=== PATIENT | male | born 1945 | race Caucasian/White ===

== ENCOUNTER → 2023-03-01 13:39 | Outpatient (BNVA) | payer MEDICARE, OTHER, SELFPAY | PROVIDERS: PCP Family Medicine; Visit Provider Psychiatry & Neurology Psychiatry | DX: F33.42 Major depressive disorder, recurrent, in full remission (principal) | CPT/HCPCS: 99212 ==

== ENCOUNTER 2023-04-11 16:23 | Outpatient (AMB) | payer MEDICARE, OTHER, SELFPAY ==
--- NOTE | 2023-04-11 15:11 | A.OFFPSYCH_ITS ---
Intake Intake Visit Reasons: depression HPI- Psychiatric Chief Complaint: depression HPI Narrative: Pt called office regarding feeling flat going thru motions has limited interest in things can have some periods feeling ok urged regular exercise has been walking rowing we had discussed the use of L methyl folate was concerned regarding potential side effects. Not overly depressed but feels flat somewhat apathetic not looking forward to things this appears to have been a gradual process and no significant change in his his life her status. [facility] concerns Day has been having 1-2 drinks a night Past Psychiatric History: Past history of depression anxiety was a patient Dr. Paez Mental Status Exam Mental Status Exam Narrative: Mental Status Exam Narrative: Appearance: Casually dressed Behavior: Cooperative appropriate psychomotor: Within normal limits Speech: Normal volume and prosody Thought proccess logical and goal-directed Thought content: Future oriented some tendency toward rumination Mood: Okay dulling noted Affect: Appropriate to mood some Flattening SI:denies HI:denies VH/AH:none Delusions: None Insight/judgment: Good insight and judgment Memory/cog: Intact Telehealth Telehealth Location of provider rendering services: practice address Location of patient: address on file Patient Identification confirmed using: Name, : Yes Telehealth method: video Patient verbally consented to treatment: Yes Minutes spent on Phone/Video with Pt.: 15 Assessment and Plan Assessment & Plan (1) Dysthymia: Status: Acute Code(s): 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 No clear trigger gradual change. Has been starting to exercise regularly [facility] gets along well with his . For no major confucianist triggers or acute medical problems. We did discuss avoiding alcohol use case that is a contributing factor. Patient has 150 mg Wellbutrin at home he will increase to 300 mg for a couple of weeks and will then decide at that point whether to continue 300 mg. Side effects reviewed including constipation hypertension increased anxiety follow-up in May patient call in between appointments as needed Medications: Changed From bupropion HCl 150 mg PO QAM 90 tabs 1RF To bupropion HCl 300 mg (2 x 150 mg) PO QAM 90 tabs 1RF Counseling and coordination of Care Pt. Self Management counseling: Mod caffeine/ETOH intake and Behavior activation Diagnosis and Prognosis Counseling: Adequacy of current interventions Details: I spent [22] minutes reviewing the record, seeing the patient and documenting in the medical record. Counseling provided to the patient/caregiver as outlined below. Addressed patient/caregiver concerns regarding current medication regime including effective adherence. Addressed patient/caregiver concerns regarding diagnosis and prognosis including accuracy of diagnosis, prognosis over time, impact of diagnosis. Addressed patient/caregiver concerns regarding impact of recent stressors. [facility] Medical History (Updated 04/11/23 @ 15:34 by Rafa Hobson MD) Major depression, recurrent, full remission Social History: Patient has 2 children. 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 Family history of bipolar disorder and depression patient had social anxieties child Substance History: none Trauma History: Both parents were alcoholics Coding Level of Care Code Tele Est Pt Level 3 (91230) Diagnoses Dysthymia F34.1
== END 2023-04-11 16:24 | disposition home or self-care (01) ==
LOC: HO.HOP 16:23
PROVIDERS: PCP Family Medicine; Visit Provider Psychiatry & Neurology Psychiatry
DX: F34.1 Dysthymic disorder (principal)
CPT/HCPCS: 99213

== ENCOUNTER → 2023-04-11 16:23 | Outpatient (BNVA) | payer MEDICARE, OTHER, SELFPAY | PROVIDERS: PCP Family Medicine; Visit Provider Psychiatry & Neurology Psychiatry | DX: F34.1 Dysthymic disorder (principal) | CPT/HCPCS: Q3014 ==

== ENCOUNTER 2023-06-13 10:34 | Outpatient (AMB) | payer MEDICARE, OTHER, SELFPAY ==
--- NOTE | 2023-06-13 10:40 | MHC.OFFVISPS ---
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 Paez Mental Status Exam Mental Status Exam Narrative: Mental Status Exam Narrative: Appearance: Casually dressed Behavior: Cooperative appropriate psychomotor: Within normal limits Speech: Normal volume and prosody Thought proccess logical and goal-directed Thought content: Future oriented issues related to his children which seem to be going better Mood: Euthymic Affect: Appropriate to mood SI:denies HI:denies VH/AH:none Delusions: None Insight/judgment: Good insight and judgment Memory/cog: Intact Assessment and Plan Assessment & Plan (1) Major depression, recurrent, full remission: Status: Acute Code(s): F33.42 - Major depressive disorder, recurrent, in full remission Plan Continue Wellbutrin mood stable no significant side effects depressive episode seemed to have diminished able to enjoy things glad to have his book just about finished no severe anxiety rumination seems to be more past generally feeling well no new medical problems does better on 150 mg then 300 mg wore anxiety agitation on 300 mg Medications: Changed From bupropion HCl 300 mg (2 x 150 mg) PO QAM 90 tabs 1RF To bupropion HCl 150 mg PO QAM 90 tabs 1RF Counseling and coordination of Care Details-Self Mgmt counseling: Issues related to family stress Medication management counseling: Effectiveness and Side effects Diagnosis and Prognosis Counseling: Adequacy of current interventions Details: I spent [38] minutes reviewing the record, seeing the patient and documenting in the medical record. Counseling provided to the patient/caregiver as outlined below. Addressed patient/caregiver concerns regarding current medication regime including effective adherence. Addressed patient/caregiver concerns regarding diagnosis and prognosis including accuracy of diagnosis, prognosis over time, impact of diagnosis. Addressed patient/caregiver concerns regarding impact of recent stressors. [facility] Medical History (Updated 04/11/23 @ 15:34 by Rafa Hobson MD) Major depression, recurrent, full remission Social History: Patient has 2 children. 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 Family history of bipolar disorder and depression patient had social anxieties child Substance History: none Trauma History: Both parents were alcoholics Coding Level of Care Code Est Pt Level 3 (77993) Therapy 30m w/E&M (63392) Diagnoses Major depression, recurrent, full remission F33.42
== END 2023-06-13 11:01 | disposition home or self-care (01) ==
LOC: HO.HOP 10:34
PROVIDERS: PCP Family Medicine; Visit Provider Psychiatry & Neurology Psychiatry
DX: F33.42 Major depressive disorder, recurrent, in full remission (principal)
CPT/HCPCS: 90833; 99213

== ENCOUNTER → 2023-06-13 10:34 | Outpatient (BNVA) | payer MEDICARE, OTHER, SELFPAY | PROVIDERS: PCP Family Medicine; Visit Provider Psychiatry & Neurology Psychiatry | DX: F33.42 Major depressive disorder, recurrent, in full remission (principal) | CPT/HCPCS: 90833; 99212 ==

== ENCOUNTER 2023-10-13 17:07 | Outpatient (AMB) | payer MEDICARE, OTHER, SELFPAY ==
--- NOTE | 2023-10-13 11:54 | A.OFFPSYCH_ITS ---
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 No long COVID symptoms. Patient without significant depressive breakthroughs generally doing well. Some family interpersonal issues arise times but patient stable he is looking to do more regular exercise which would be helpful some flattening perhaps in the winter generally no complaints of side effects has done well with the Wellbutrin Past Psychiatric History: Past history of depression anxiety was a patient Dr. Paez Mental Status Exam Mental Status Exam Narrative: Mental Status Exam Narrative: Appearance: Casually dressed Behavior: Cooperative appropriate psychomotor: Within normal limits Speech: Normal volume and prosody Thought proccess logical and goal-directed Thought content: Future oriented issues related to his children which seem to be going better Mood: Euthymic Affect: Appropriate to mood SI:denies HI:denies VH/AH:none Delusions: None Insight/judgment: Good insight and judgment Memory/cog: Intact Assessment and Plan Assessment & Plan (1) Major depression, recurrent, full remission: Status: Acute Code(s): F33.42 - Major depressive disorder, recurrent, in full remission Plan Did read fill sildenafil risks benefits reviewed continue Wellbutrin 150 mg daily follow-up for a six-month Medications: Refilled sildenafil administer 30 minutes to 4 hours before activity do not use with nitrates 50 mg PO DAILY PRN 14 tabs 1RF sexual activity bupropion HCl 150 mg PO QAM 90 tabs 1RF Counseling and coordination of Care Pt. Self Management counseling: Breathing, Exercise and Behavior activation Diagnosis and Prognosis Counseling: Adequacy of current interventions Details: I spent [25] minutes reviewing the record, seeing the patient and documenting in the medical record. Counseling provided to the patient/caregiver as outlined below. Addressed patient/caregiver concerns regarding current medication regime including effective adherence. Addressed patient/caregiver concerns regarding diagnosis and prognosis including accuracy of diagnosis, prognosis over time, impact of diagnosis. Addressed patient/caregiver concerns regarding impact of recent stressors. [facility] Medical History (Updated 04/11/23 @ 15:34 by Rafa Hobson MD) Major depression, recurrent, full remission Social History: Patient has 2 children. 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 Family history of bipolar disorder and depression patient had social anxieties child Substance History: none Trauma History: Both parents were alcoholics Coding Level of Care Code Est Pt Level 4 (72983) Diagnoses Major depression, recurrent, full remission F33.42
== END 2023-10-13 17:07 | disposition home or self-care (01) ==
LOC: HO.HOP 17:07
PROVIDERS: PCP Family Medicine; Visit Provider Psychiatry & Neurology Psychiatry
DX: F33.42 Major depressive disorder, recurrent, in full remission (principal)
CPT/HCPCS: 99214

== ENCOUNTER → 2023-10-13 17:07 | Outpatient (BNVA) | payer MEDICARE, OTHER, SELFPAY | PROVIDERS: PCP Family Medicine; Visit Provider Psychiatry & Neurology Psychiatry | DX: F33.42 Major depressive disorder, recurrent, in full remission (principal); Z79.899 Other long term (current) drug therapy | CPT/HCPCS: 99212 ==

== ENCOUNTER → 2024-03-01 11:12 | Outpatient (BNVA) | payer MEDICARE, OTHER, SELFPAY | PROVIDERS: PCP Family Medicine; Visit Provider Psychiatry & Neurology Psychiatry ==

== ENCOUNTER 2024-08-29 10:26 | Outpatient (AMB) | payer MEDICARE, OTHER, SELFPAY ==
--- NOTE | 2024-08-29 11:00 | MHC.OFFVISPS ---
Intake Intake Visit Reasons: depression HPI- Psychiatric Chief Complaint: depression HPI Narrative: Pt seen in f/u pt generally stable no new mmedical problems no significant dep sx or breakthrough. Has been stable on wellbutrin no c/o side effects. 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 Paez Mental Status Exam Mental Status Exam Narrative: Mental Status Exam Narrative: Appearance: Casually dressed Behavior: Cooperative appropriate psychomotor: Within normal limits Speech: Normal volume and prosody Thought proccess logical and goal-directed Thought content: Future oriented focused on tx prevention of relapse Mood: Euthymic Affect: Appropriate to mood SI:denies HI:denies VH/AH:none Delusions: None Insight/judgment: Good insight and judgment Memory/cog: Intact Assessment and Plan Assessment & Plan (1) Major depression, recurrent, full remission: Status: Acute Code(s): F33.42 - Major depressive disorder, recurrent, in full remission Plan pt stable discussed f/u with pcp and to be available for consult as possible Medications: Refilled bupropion HCl XL 150 mg PO QAM 90 tabs 1RF Counseling and coordination of Care Medication management counseling: Effectiveness and Side effects Diagnosis and Prognosis Counseling: Adequacy of current interventions Details: I spent [25] minutes reviewing the record, seeing the patient and documenting in the medical record. Counseling provided to the patient/caregiver as outlined below. Addressed patient/caregiver concerns regarding current medication regime including effective adherence. Addressed patient/caregiver concerns regarding diagnosis and prognosis including accuracy of diagnosis, prognosis over time, impact of diagnosis. Addressed patient/caregiver concerns regarding impact of recent stressors. [facility] Medical History (Updated 04/11/23 @ 15:34 by Rafa Hobson MD) Major depression, recurrent, full remission Social History: Patient has 2 children. 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 Family history of bipolar disorder and depression patient had social anxieties child Substance History: none Trauma History: Both parents were alcoholics Coding Level of Care Code Est Pt Level 4 (30091) Diagnoses Major depression, recurrent, full remission F33.42
== END 2024-08-29 11:05 | disposition home or self-care (01) ==
LOC: HO.HOP 10:26
PROVIDERS: PCP Family Medicine; Visit Provider Psychiatry & Neurology Psychiatry
DX: F33.42 Major depressive disorder, recurrent, in full remission (principal)
CPT/HCPCS: 99214

== ENCOUNTER → 2024-08-29 10:26 | Outpatient (BNVA) | payer MEDICARE, OTHER, SELFPAY | PROVIDERS: PCP Family Medicine; Visit Provider Psychiatry & Neurology Psychiatry | DX: F33.42 Major depressive disorder, recurrent, in full remission (principal); Z71.89 Other specified counseling | CPT/HCPCS: 99212 ==

== ENCOUNTER 2025-01-09 10:25 | Outpatient (AMB) | payer MEDICARE, OTHER, SELFPAY ==
--- NOTE | 2025-01-09 10:35 | A.OFFPSYCH_ITS ---
Intake Intake Visit Reasons: depression Medication List - Last Reconciled 01/09/25 by Rafa Hobson MD bupropion HCl XL 150 mg PO QAM finasteride 5 mg PO DAILY levothyroxine 137 mcg PO DAILY lovastatin 20 mg PO DAILY sildenafil 50 mg PO DAILY PRN HPI- Psychiatric Chief Complaint: depression HPI Narrative: Pt seen in f/u mood has ok some anxiety a grandson getting going [facility] some ongoing worries regarding aging . 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 Things generally going well patient stable discussed being seen by his primary care physician Past Psychiatric History: Past history of depression anxiety was a patient Dr. Paez Mental Status Exam Mental Status Exam Narrative: Mental Status Exam Narrative: Appearance: Casually dressed Behavior: Cooperative appropriate psychomotor: Within normal limits Speech: Normal volume and prosody Thought proccess logical and goal-directed Thought content: Future oriented focused on tx prevention of relapse Mood: Euthymic Affect: Appropriate to mood SI:denies HI:denies VH/AH:none Delusions: None Insight/judgment: Good insight and judgment Memory/cog: Intact Assessment and Plan Assessment & Plan (1) Major depression, recurrent, full remission: Status: Acute Code(s): F33.42 - Major depressive disorder, recurrent, in full remission Plan Patient feeling generally stable. Some anxiety at times regarding the aging process Medications: Refilled bupropion HCl XL 150 mg PO QAM 90 tabs 1RF Counseling and coordination of Care Details-Self Mgmt counseling: Issues related to the aging process Medication management counseling: Effectiveness, Side effects and Dosing range Diagnosis and Prognosis Counseling: Accuracy of diagnosis, Prognosis over time and Impact of diagnosis on life functions Details: I spent [30] minutes reviewing the record, seeing the patient and documenting in the medical record. Counseling provided to the patient/caregiver as outlined below. Addressed patient/caregiver concerns regarding current medication regime including effective adherence. Addressed patient/caregiver concerns regarding diagnosis and prognosis including accuracy of diagnosis, prognosis over time, impact of diagnosis. Addressed patient/caregiver concerns regarding impact of recent stressors. [facility] Medical History (Updated 04/11/23 @ 15:34 by Rafa Hobson MD) Major depression, recurrent, full remission Social History: Patient has 2 children. 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 Family history of bipolar disorder and depression patient had social anxieties child Substance History: none Trauma History: Both parents were alcoholics Coding Level of Care Code Est Pt Level 4 (27724) Diagnoses Major depression, recurrent, full remission F33.42
--- OUTSIDE RECORDS SUMMARY | 2025-01-09 12:02 | XMS_ITS | Data Portability ---
Author Organization [facility] Address [address] [place] [address] Care Team Providers Care Shopper'S Aide Name Role Phone [facility] Urologist [facility] Microwave Technician Assessment Encounter Date Assessment Date Assessment LastModified by Organization Details LastModified Time 04/11/2024 04/11/2024 We completed your Medicare Wellness exam today. This was an opportunity to assess your overall well being including your ability to care for yourself, your mobility, memory, mental health, as well as your safety. With advancing age, it is important to assign someone in your life as your Health Care Proxy (HCP). This person should know what is important to you and what your wishes are for medical procedures if you cannot communicate your wishes yourself (severe illness, unconsciousnes s). We discussed having a completed Health Care Proxy form today. Vision and Hearing are senses that are critically important as we age. When impaired, they can contribute to memory loss, falls, and make it harder to drive, talk to family and friends, and engage in the world. Please get your vision checked yearly and your hearing checked when you start to notice hearing loss. We discussed approaches to lowering your risk of heart disease and stroke . Your blood pressure is at goal. Your cholesterol is at goal. We discussed cancer screening you may need as well as vaccines to prevent infections. Colon Cancer : Your risk of colon cancer is average. Due for colorectal screening:not needed. If you are not planning to have a colonoscopy please screen with stool cards yearly. Breast Cancer : Breast Cancer Screening (mammography). Next mammogram due: . Cervical Cancer Screening (pap test). Next pap due: . Prostate Cancer : PSA testing for ages 55-69 risks and benefits discussed . Influenza Vaccine : Flu shot yearly. Tetanus Vaccine : Every 10 years. Due: today. The following vaccines are available from your pharmacy: Pneumonia Vaccine : PCV20: once after age 65. Shingles Vaccine : 2 shots after age 50. Covid Vaccine : Make sure you have received the most up to date covid vaccine. Your personal health goal for the year is: Not available 04/11/2024 16:17:32 07/09/2024 07/09/2024 RTC 1 yr CEE or prn [email or web address] Not available 07/09/2024 10:41:23 Plan of Treatment Reminders Order Date Submit Date Provider Last Modified By Organization Details Last Modified Time Details Appointments LAB Follow- Up 2024 10:00A M [facility] Lab Not available Not available Not available [facility] 30 2024 10:15A M Gretchen Schuster MD Not available Not available Not available Compreh ensive Eye Exam, 20 Min 2024 10:10A M Anita Villela OD Not available Not available Not available Lab None recorde d. Referral None recorde d. Procedures None recorde d. Surgeries None recorde d. Imaging None recorde d. Medication Orders None recorde d. Patient TargetsNo targets recorded. Patient Instructions Encounter Date Encounter Id Patient Instructions Last Modified By Organization Details Last Modified Time 07/10/2024 [id number] After a discussi on of treatment options, which included consideration of best practices and patient preferences, the following treatment plan and objectives were adopted: as above. [email or web address] Not available 07/10/2024 10:01:08 10/01/2024 [id number] General Health Maintenance / Followup Plans -Next primary care appointment scheduled for June 2025. -Labs to be done a week prior to the appointment. -Continue regular appointments with medical office coordinator. Not available 10/01/2024 13:36:36 Reason for Referral None Reported. Results Created Date Observation Date Name Description Value Unit Range Abnormal Flag Note LastModifiedBy Organization Detail LastModifiedTime 03/19/20 24 03/19/2024 TSH TSH 0.93 uIU/m L 0.50-6 .00 The Ameri can Colle ge of Endoc rinol ogy and Ameri can Thyro id Assoc iatio n recom mend goal TSH value s betwe en 0.4-4 .0 mIU/m L. Not Available [address], [address], 03/19/2024 14:07:43 03/19/20 24 03/19/2024 LIPID PANEL cholesterol 157 mg/dL <200 mg/dl Saadia able 200-2 39 mg/dl Borde rline High >240 mg/dl High Not Available [address], [address], 03/19/2024 16:27:33 03/19/20 24 03/19/2024 LIPID PANEL triglyceride s 141 mg/dL <150 mg/dL Lexy l 150-1 99 mg/dL Borde rline High 200-4 99 mg/dL High >500 mg/dL Very High Not Available [address], [address], 03/19/2024 16:27:33 03/19/20 24 03/19/2024 LIPID PANEL direct HDL 43 mg/dL <40 mg/dl - Major Risk for CHD >60 mg/dl - Negat michael Risk for CHD Not Available [address], [address], 03/19/2024 16:27:33 03/19/20 24 03/19/2024 GLUCO SE glucose 66 mg/dL 70-100 low Not Available [address], [address], 03/19/2024 16:27:33 03/19/20 24 03/19/2024 DIREC T LDL direct LDL 91 mg/dL RISK CATEG ORY LDL GOAL _ CHD or CHD Risk Equiv alent s <100 mg/dl (10-y ear risk >20%) 2+ Risk Facto rs <130 mg/dl (10-y ear risk <= 20%) 0-1 Risk Facto r? <160 mg/dl ? Almos t all peopl e with 0-1 risk facto r have a 10 year risk <10%, thus 10 year risk asses ment in peopl e with 0-1 risk facto r is not selma cade. Not Available [address], [address], 03/19/2024 16:27:34 Result Notes None recorded. Problems Name Problem SNOMED Code Status Onset Date Resolution Date Notes Provider Name and Address Organization Details Recorded Time Hypothyroidis m 65879745 [facility] 13:[facility] Hypercholeste rolemia 13151853 Active Zena Zaldivar NP [address] [place] [address], [phone] , [facility] 6 17:18:03 Benign prostatic hyperplasia 093159934 [facility] 13:32:31 Allergic rhinitis 52224618 Active Zena Zaldivar NP [address] [place] [address], [phone] , [facility] 6 17:18:03 Basal cell carcinoma of skin 484873726 Active 2021 R arm 2021 NE Derm Gretchen Schuster MD [address] [place] [address], [phone] , [facility] 2 13:14:52 Major depression, melancholic type 678311596 Active 2022 Gretchen Schuster MD [address] [place] [address], [phone] , [facility] 3 09:53:10 Bilateral hearing loss 23778181 Active 2023 Gretchen Schuster MD [address] [place] [address], [phone] , [facility] 4 16:16:44 Eczema of external auditory canal 43756708 Active 2024 Gretchen Schuster MD [address] [place] [address], [phone] , [facility] 13:35:25 Problem Notes None recorded. Procedures Surgical History Date Name Laterality Status Provider Name and Address Organization Details Recorded Time Cerumen Removal - Irrigation/Lavage completed Ori Villase[facility] 07/10/2024 10:14:33 Cerumen Removal - Using Instrumentation completed Ori Villaseñor RN [facility] 07/10/2024 10:14:35 Refraction completed Anita Villela, OD [address] [place], [address], [facility] 07/09/2024 10:41:18 Optical Coherence Tomography (Optic Nerve) completed Anita Villela, OD [address] [place] [address], [phone], [facility] 07/09/2024 10:58:11 021 84052: Therapeutic Exercise completed Daniela William, PT [address] [place], [address], [facility] 04/29/2021 13:35:50 021 33050: Manual Therapy completed Daniela William, PT [address] [place], [address], [facility] 04/29/2021 13:35:58 021 Treatment and Advice completed Daniela William, PT [address] [place], [address], [facility] 04/29/2021 13:37:05 021 48031: Therapeutic Exercise completed Daniela William, PT [address] [place], [address], [facility] 04/20/2021 11:37:01 021 Treatment and Advice completed Daniela William, PT [address] [place], [address], [facility] 04/20/2021 11:37:37 021 00560: PT Eval Low Complexity completed Daniela William, PT [address] [place], [address], [facility] 04/13/2021 20:24:53 021 Treatment and Advice completed Daniela William, PT [address] [place], [address], [facility] 04/13/2021 20:15:00 021 Medicare Wellness Visit completed Jing Beth LPN [facility] 03/17/2021 08:10:14 021 prevention-cardiov ascular risk reduction counseling completed Jing Beth CAGE CLERK [facility] 03/17/2021 08:10:14 021 prevention-annual alcohol misuse screening completed Jing Beth LPN [facility] 03/17/2021 08:10:14 020 Medicare Wellness Visit completed Jing Beth CAGE CLERK [facility] 03/02/2020 09:10:40 020 prevention-cardiov ascular risk reduction counseling completed Jing Beth C[facility] CL[facility] 03/02/2020 09:10:40 020 prevention-annual alcohol misuse screening completed Jing Beth [facility] CLERK [facility] 03/02/2020 09:10:41 019 Refraction completed Sumanth [facility] 07/11/2019 08:52:11 019 Medicare Wellness Visit completed Larissa Mcdonald [facility] 02/08/2019 14:35:45 018 Medicare Wellness Visit completed Pilar Palmer [facility] 02/06/2018 11:30:21 017 Wart completed Marco Dooley MD [address] [place], [address], [facility] 08/01/2017 09:57:30 017 Refraction completed Denise [facility] 07/06/2017 08:50:10 017 46863: Therapeutic Exercise completed Mitul Street, PT [address] [place], [address], [facility] 05/03/2017 11:59:14 017 Treatment and Advice completed Mitul Street, PT [address] [place], [address], [facility] 05/03/2017 11:59:24 017 Physical Activity Counselling completed Mitul Street, PT [address] [place], [address], [facility] 04/19/2017 13:08:50 017 18310: PT Eval Low Complexity completed Mitul Street, PT [address] [place], [address], [facility] 04/19/2017 13:08:53 017 Treatment and Advice completed Mitul Street, PT [address] [place], [address], [facility] 04/19/2017 13:33:21 017 Medicare Wellness Visit completed Marely G[facility] 01/31/2017 11:24:05 016 Refraction completed Denise Luna [facility] 07/05/2016 09:31:42 016 Pola - Colonoscopy completed Rock Escalona [address] [place], [address], [facility] 03/16/2016 10:56:31 016 Medicare Wellness Visit completed Nunu Burciaga [facility] 01/25/2016 14:17:22 015 Medicare Wellness Visit completed Nunu Burciaga [facility] 01/20/2015 11:19:22 015 Current <strong>Medication s</strong> not Documented, Reason not Given (G8428) completed Fara Goncalves, OT [address] [place], [address], [facility] 09/25/2014 14:19:47 014 Current <strong>Medication s</strong> not Documented, Reason not Given (G8428) completed Fara Goncalves OT [address] [place], [address], [facility] 09/04/2014 15:52:00 014 Corticosteroid Injection completed Marco Dooley MD [address] [place] [address], [phone], [facility] 08/24/2014 20:11:55 014 Current <strong>Medication s</strong> not Documented, Reason not Given (G8428) completed Fara Goncalves, OT [address] [place] [address], [address], [facility] 08/19/2014 16:07:58 014 Current <strong>Medication s</strong> not Documented, Reason not Given (G8428) completed Fara Goncalves, OT [address] [place] [address], [phone], [facility] 08/12/2014 15:32:45 014 <strong>Pain</stro ng> Assessment and Follow-up (G8730) completed Fara Goncalves, OT [address] [place] [address], [address], [facility] 08/05/2014 13:04:49 014 <strong>Falls</str claude> Risk Assessment - No Risk (1101F) completed Fara Goncalves, OT [address] [place], [address], [facility] 08/05/2014 13:04:50 014 <strong>Functional </strong> Outcome w/ POC (G8539) completed Fara Goncalves, OT [address] [place], [address], [facility] 08/05/2014 13:04:50 014 <strong>Tobacco</s maryjane> Non-User (1036F) completed Fara Goncalves, OT [address] [place], [address], [facility] 08/05/2014 13:04:50 014 <strong>BMI</stron g> Normal - No Follow-up Required (G8420) completed Fara Goncalves, OT [address] [place], [address], [facility] 08/05/2014 13:04:50 014 Current <strong>Medication s</strong> Documented (G8427) completed Fara Goncalves, OT [address] [place], [address], [facility] 08/05/2014 13:04:50 014 Treatment and Advice completed Fara Goncalves, OT [address] [place], [address], [facility] 08/05/2014 13:05:14 014 Suture/staple Removal completed Cherri Oshea RN [facility] 01/29/2014 19:12:40 Punch Biopsy completed Marco Dooley MD [address] [place], [address], [facility] 03/10/2014 22:12:38 Medicare Wellness Visit completed Nunu Burciaga [facility] 12/24/2013 09:07:53 Imaging Results None recorded. Procedure Notes None recorded. Medical Equipment None Reported. Allergies Allergen ID Allergen Name Allergen Category Reaction Reaction Severity Criticality Documentation Date Start Date Code Code System Note Provider Name and Address Organization Details Recorded Time 367261 erythromy vee medicatio n other Not available Not available 07/08/2013 4053 RxNorm itchi nness --eye ointm ent Nunu Burciaga MA [facility] 4 15:05:50 Medications Name Sig Start Date Stop Date Status Note LastModified by Organization Details LastModified Time zostavax inj active Not Available Not Available Not Available ciproflox acn kami 0.3% op active Not Available Not Available Not Available amoxicill in 500 mg capsule 03/02 completed Not Available Not Available Not Available levothyro xine 137 mcg tablet TAKE 1 TABLET BY MOUTH EVERY DAY *DUE FOR LABS* active Not Available Not Available No t Available doxycycli ne hyclate 100 mg capsule 08/01 completed 08/01/17 -pt no longer taking.s g Not Available Not Available Not Available sildenafi l 50 mg tablet active Not Available Not Available Not Available sertralin e 100 mg tablet TAKE 1 TABLET BY MOUTH EVERY DAY 07/26 completed 07/26/18 dose was decrease d to 25mg/ashley Not Available Not Available Not Available prochlorp erazine maleate 10 mg tablet 07/05 completed Not Available Not Available Not Available hydrocodo ne 10 mg-acetam inophen 325 mg tablet active 11/03/15- -ac Not Available Not Available Not Available aspirin 81 mg tablet,de layed release Take 1 tablet every day by oral route. active taking 3 times per week 12/06/22 mk Not Available Not Available Not Available triamcino lone acetonide 0.1 % topical cream APPLY TWICE DAILY, MIX WITH SARNA OR CERAVE ANTI ITCH AVOID USING ON FACE AND GENITALS 03/24 completed finished course 01/10/23 Not Available Not Available Not Available amoxicill in 875 mg tablet active 11/03/15- -ac Not Available Not Available Not Available triamcino lone acetonide 0.1 % topical ointment APPLY THIN COAT TO AFFECTED AREA TWICE A DAY 03/24 completed finished course 01/10/23 Not Available Not Available Not Available bupropion HCl 75 mg tablet TAKE 1 TABLET BY MOUTH EVERY DAY 07/26 completed 07/26/18 dose was increase d to 150mg Not Available Not Available Not Available sertralin e 25 mg tablet take 1 tab daily 02/08 completed Not Available Not Available Not Available Viagra 100 mg tablet Take 1/2 tab po as needed 1 hour prior to sexual intercou rse. 02/06 completed Not Available Not Available Not Available lovastati n 20 mg tablet TAKE 1 TABLET DAILY active Not Available Not Available No t Available clotrimaz ole 1 % topical cream APPLY TO THE AFFECTED AND SURROUND ING AREAS OF SKIN 2 TIMES PER DAY IN MORNING & EVENING FOR 1 WEEK 08/19 completed Not Available Not Available Not Available sertralin e 50 mg tablet TAKE 1&1/2 TABLETS BY MOUTH ONCE A DAY 04/07 completed 01/31/17 pt takes 75mg.sg Not Available Not Available Not Available finasteri de 5 mg tablet TAKE 1 TABLET DAILY active Not Available Not Available No t Available loratadin e 10 mg tablet Take 1 tablet every day by oral route. 04/07 completed 11/03/15- -PRN--ac Not Available Not Available Not Available bupropion HCl XL 150 mg 24 hr tablet, extended release TAKE 1 TABLET EVERY MORNING active Not Available Not Available No t Available tadalafil 20 mg tablet TAKE 1 TABLET BY MOUTH EVERY DAY NEEDED DIRECTED 08/05 completed Not Available Not Available Not Available Flovent HFA 44 mcg/actua tion aerosol inhaler INHALE 2 PUFFS BY MOUTH TWICE A DAY active Not Available Not Available No t Available aspirin 81mg po daily active Not Available Not Available No t Available peg 3350-elec trolytes 236 gram-22.7 4 gram-6.74 gram-5.86 gram solution 07/05 completed Not Available Not Available Not Available Athlete's Foot (terbinaf ine) 1 % topical cream APPLY TO THE RASH NEAR GROIN NIGHTLY AFTER SHOWER TWICE DAILY UNTIL RASH CLEAR. 03/24 completed finished course 01/10/23 Not Available Not Available Not Available Antifunga l (miconazo le) 2 % topical powder APPLY TO GROIN DAILY FOR PREVENTI ON 03/24 completed Not Available Not Available Not Available Fluzone High-Dose 1846-4172 (PF) 180 mcg/0.5 mL intramusc ular syringe TO BE ADMINIST ERED BY [employer] FOR IMMUNIZA TION 07/06 completed Not Available Not Available Not Available Fluzone High-Dose 1346-4715 (PF) 180 mcg/0.5 mL intramusc ular syringe TO BE ADMINIST ERED BY [employer] FOR IMMUNIZA TION 07/06 completed Not Available Not Available Not Available Shingrix (PF) 50 mcg/0.5 mL intramusc ular suspensio n, kit TO BE ADMINIST ERED BY [employer] FOR IMMUNIZA TION 07/26 completed Not Available Not Available Not Available Flublok Quad (PF) 180 mcg (45 mcg x 4)/0.5 mL IM syringe PHARMACY ADMINIST ERED 09/17 completed Not Available Not Available Not Available QuickVue At-Home COVID-19 Test kit REFER TO MANUFACT URER INSTRUCT IONS INCLUDED IN PACKAGIN G 03/24 completed Not Available Not Available Not Available Paxlovid 150 mg-100 mg tablets in a dose pack (Moderate Renal Dose) TAKE 2 TABLETS BY MOUTH TWICE A DAY 08/25 completed Not Available Not Available Not Available Vitals Date Recorded Body height Body mass index (BMI) Body weight Heart rate Oxygen saturation Oxygen saturation in Arterial blood by Pulse oximetry Systolic blood pressure Diastolic blood pressure Provider Name and Address Organization Details Last Updated DateTime 4 180.34 cm 28.7 kg/m2 49442.3 1 g 97 /min 97 % 97 % 130 mm[Hg] 82 mm[Hg] Jasmin Rey [facility] 4 13:49:23 Date Recorded Body temperature Provider Name a wy Address Organization Details Last Updated DateTime 03/08/2024 99.2 [degF] Nunu Lock NP [address] [place] [address], [address], [facility] 03/08/2024 13:58:04 Date Recorded Body height Body mass index (BMI) Body weight Heart rate Systolic blood pressure Diastolic blood pressure Provider Name and Address Organization Details Last Updated DateTime 4 179.07 cm 28.1 kg/m2 60134.1 6 g 80 /min 104 mm[Hg] 66 mm[Hg] Jasmin Rey [facility] 4 09:29:55 Date Recorded Body height Body mass index (BMI) Body weight Body temperature Oxygen saturation Oxygen saturation in Arterial blood by Pulse oximetry Heart rate Systolic blood pressure Diastolic blood pressure Provider Name and Address Organization Details Last Updated DateTime 4 179.07 cm 29.3 kg/m2 93230.6 2 g 96 [degF] 99 % 99 % 70 /min 104 mm[Hg] 66 mm[Hg] Amy Dominique [facility] 4 09:50:56 Date Recorded Body height Oxygen saturation Oxygen saturation in Arterial blood by Pulse oximetry Heart rate Systolic blood pressure Diastolic blood pressure Provider Name and Address Organization Details Last Updated DateTime 5 179.07 cm 98 % 98 % 88 /min 122 mm[Hg] 80 mm[Hg] Connie Shen [facility] 5 10:06:30 Social History Question Answer Notes LastModified by Organizat ion Details LastModified Time Tobacco Smoking Status Never Smoker Liliana Nolasco MA [facility] 07/08/2013 09:36:48 Do You Have An Advance Directive? Yes [email or web address] Information not available 08/26/2022 What Is Your Level Of Alcohol Consumption? Occasional 2 Drinks, Not Every Night Information not available 03/22/2022 Do You Wear A Helmet When Biking? Yes [email or web address] Information not available 08/26/2022 What Is Your Level Of Caffeine Consumption? Moderate 2 Cups Of Coffee Per Day odinis Information not available 04/11/2024 How Much Tobacco Do You Chew? None [email or web address] Information not available 12/26/2016 Are You Currently Employed? No [email or web address] Information not available 03/24/2023 What Type Of Diet Are You Following? REGULAR [email or web address] Information not available 08/26/2022 Which Illicit Or Recreational Drugs Have You Used? None [email or web address] Information not available 02/06/2018 Do You Or Have You Ever Used E-cigarettes Or Vape? Never Used Electronic Cigarettes [email or web address] Information not available 08/26/2022 Education 4 Year College [email or web address] Information not available 08/26/2022 What Is The Highest Grade Or Level Of School You Have Completed Or The Highest Degree You Have Received? 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 No Lives With Information not available 03/24/2023 How Many Days In The Past Year Have You Had A Heavy Drinking Consumption (4+ Female, 5+ Male)? 0 Information not available 01/25/2016 Are There Any Guns Present In Your Home? No [email or web address] Information not available 03/17/2021 Do You Use Insect Repellent Routinely? Yes Information not available 03/24/2023 Live Alone Or With Others? With Others [email or web address] Information not available 08/26/2022 Patient Has Health Care Proxy Signed And In Chart Yes [email or web address] Information not available 11/12/2019 CCM Consent Discussion 03/22/2022 [email or web address] Information not available 04/01/2022 Marital Status Angela Arechiga [email or web address] Information not available 08/26/2022 Mosquito Repellent Used Routinely Yes [email or web address] Information not available 08/26/2022 What Was The Date Of Your Most Recent Tobacco Screening? 10/01/2024 [email or web address] Information not available 10/01/2024 How Many Children Do You Have? 2 [email or web address] Information not available 07/08/2013 What Is Your Relationship Status? Information not available 03/22/2022 Do You Use Your Seat Belt Or Car Seat Routinely? Yes Information not available 03/22/2022 Seat Belts Used Routinely Yes [email or web address] Information not available 08/26/2022 Are You Sexually Active? No [email or web address] Information not available 03/24/2023 Smoke Alarm In Home Yes [email or web address] Information not available 08/26/2022 Do You Have Smoke And Carbon Monoxide Detectors In Your Home? Yes [email or web address] Information not available 08/26/2022 Are You Passively Exposed To Smoke? No [email or web address] Information not available 08/26/2022 Do You Or Have You Ever Used Smokeless Tobacco? Never Used Smokeless Tobacco [email or web address] Information not available 08/26/2022 How Much Tobacco Do You Smoke? No [email or web address] Information not available 08/26/2022 What Types Of Sporting Activities Do You Participate In? Bowling 2x Per Week, Biking [email or web address] Information not available 02/06/2018 General Stress Level Medium Varying [email or web address] Information not available 08/26/2022 Do You Use Any Illicit Or Recreational Drugs? No [email or web address] Information not available 08/26/2022 Do You Use Sunscreen Routinely? Yes [email or web address] Information not available 08/26/2022 How Many Years Have You Smoked Tobacco? 0 Information not available 01/25/2016 Do You Or Have You Ever Used Any Other Forms Of Tobacco Or Nicotine? No [email or web address] Information not available 08/26/2022 How Many Days In The Past Year Have You Consumed 5 Or More Drinks? 0 Information not available 03/24/2023 Sex: Male Functional Status Question Answer Note LastModified by Organizat ion Details LastModified Time What is your exercise level? Occasional Walks 2-3 miles, bikes, pickleball . Not every day Information not available 04/11/2024 Mental Status None recorded. Family History Relationship Description Onset Age of this Age Resolved Age Notes LastModified by Organization Details LastModified Time Father Cerebrovascu lar accident 60 fkim Not available 10:00:56 Mother Alcoholism 48 fkim Not available 07/08/2013 10:01:23 Medical History No medical history recorded. Immunizations Vaccine Type Date Status Note Provider Nam e and Address Organization Details Recorded Time Influenza, split virus, trivalent, PF 3 completed Not Available [facility] 10/05/2019 02:32:58 pneumococcal polysaccharide PPV23 3 completed Not Available [facility] 10/05/2019 02:14:55 zoster live 4 completed Not Available [facility] 10/05/2019 02:28:11 Td (adult), 5 Lf tetanus toxoid, preservative free, adsorbed 4 completed Not Available [facility] 10/05/2019 02:17:01 Pneumococcal conjugate PCV 13 5 completed Not Available [facility] 10/05/2019 02:19:26 Td (adult) 4 completed Not Available [facility] 08/26/2022 10:14:26 Influenza, split virus, trivalent, preservative 4 completed Not Available [facility] 08/26/2022 10:14:26 influenza, unspecified formulation 5 [facility] 17:06:05 influenza, unspecified formulation 6 completed Not Available [facility] 10/19/2019 02:10:42 influenza, unspecified formulation 7 [facility]/01[facility]2017 09:38:31 Influenza, high-dose, trivalent, PF 8 completed Not Available [facility] 08/26/2022 10:14:26 Influenza, adjuvanted, trivalent, PF 9 completed Not Available [facility] 08/26/2022 10:14:26 Influenza, split virus, quadrivalent, preservative 0 completed Not Available [facility] 08/26/2022 10:14:26 COVID-19, mRNA, LNP-S, PF, 100 mcg/0.5mL dose or 50 mcg/0.25mL dose 1 completed Not Available [facility] 08/26/2022 10:14:26 COVID-19, mRNA, LNP-S, PF, 100 mcg/0.5mL dose or 50 mcg/0.25mL dose 1 completed Not Available [facility] 08/26/2022 10:14:26 Td (adult), 2 Lf tetanus toxoid, preservative free, adsorbed 4 completed Gretchen Schuster MD [address] [place] [address], [id number], [facility] 04/11/2024 16:14:25 Influenza, split virus, quadrivalent, preservative 1 completed Not Available [facility] 08/26/2022 10:14:26 zoster recombinant 8 completed Not Available [facility] 08/26/2022 10:14:26 zoster recombinant 8 completed Not Available [facility] 08/26/2022 10:14:26 COVID-19, mRNA, LNP-S, PF, 100 mcg/0.5mL dose or 50 mcg/0.25mL dose 1 completed Not Available [facility] 08/26/2022 10:14:26 COVID-19, mRNA, LNP-S, PF, 100 mcg/0.5mL dose or 50 mcg/0.25mL dose 2 completed Not Available [facility] 08/26/2022 10:14:26 Influenza, split virus, quadrivalent, preservative 2 completed Not Available [facility] 08/26/2022 10:14:26 COVID-19, mRNA, LNP-S, bivalent, PF, 50 mcg/0.5 mL or 25mcg/0.25 mL dose 3 completed [facility] 02/17/2023 10:05:35 influenza, unspecified formulation 3 completed THO [facility] 07/25/2023 15:38:39 Respiratory syncytial virus (RSV) vaccine, unspecified 4 completed [facility] 10/06/2023 14:29:24 Respiratory syncytial virus (RSV) MAB, unspecified 4 completed DECLAN Syed[facility] 10/18/2023 09:49:38 COVID-19, mRNA, LNP-S, PF, 30 mcg/0.3 mL dose 3 completed DECLAN Sy[facility] 10/18/2023 09:50:17 influenza, unspecified formulation 4 [facility] 06/03/[facility]24 11:39:33 SARS-COV-2 (COVID-19) vaccine, UNSPECIFIED 4 completed [facility]/03/2024 11:39:49 Past Encounters Encounter ID Performer Location Encounter Start Date Encounter Closed Date Diagnosis/Indication Diagnosis SNOMED-CT Code Diagnosis ICD10 Code Diagnosis Note [id number] [facility], [address] [place] [address] 07/08/2013 09:14:35 07/08/2013 10:16:28 Influenza vaccine needed [id number] 106 Hypothyroidism 43185413 History of thyroidect pat due to goiter. States he is stable on current dose of Synthroid. Continue current medication s. Check TSH and request old records. Hypercholesterolemia 57009679 Continue current medication and low fat/choles terol diet. Check FLP/LFT. Benign pro static hyperplasia [id number] States PSA is being monitored by his Urologist at [facility]. Allergic rhinitis 23837069 Stable on intermitte nt use of Loratadine . No respirator y distress. Major depr essive disorder 389586003 Stable on Sertraline . Continue current medication . Screening for malignant neoplasm of colon 684422910 States colonoscop y done within the last 5 years. Was told normal. Records requested. Administra tion of bacterial and viral vaccine 552846990 Administra tion of pneumococcal vaccine [id number] Agustina Quinteros , [facility], [address] [place] [address] 11/11/2013 10:32:30 11/12/2013 09:49:23 Fatigue 91480470 Lymphadenopathy 37941862 Reassurred most likely viral. He feels a tenderness right side of neck but unable to palpate any enlarged or tender lymph nodes there. Will check some labs today to r/o infection and f/u with results when available. Enc. adequate rest, fluids, advil/tyle nol prn for discomfort and f/u if sx not resolving or are worsening. [id number] Shey Whittington LPN , [facility], [address] [place] [address] 12/24/2013 08:43:40 12/24/2013 10:14:47 Adult health examination 942931803 See Risk Assessment and Lifestyle Change Counseling section above. Seen Urology at [facility]. Normal PSA and testicular exam. Influenza and PNA vaccines UTD. Rx for Tdap and Shingles vaccines prescribed . Advised to bring to his next visit for administra tion. Schedule for a punch biopsy of his right chest lesion (8mm x 4mm). Will request records from his previous colonoscop y. Counseling [id number] Administra tion of diphtheria, pertussis, and tetanus vaccine 625405229 Varicella vaccination 09335626 Allergic rhinitis 70520181 Stable on intermitte nt use of Loratadine . No respirator y distress. Benign pro static hyperplasia 691044385 States PSA is being monitored by his Urologist at [facility]. No urinary obstructiv e symptoms. Hypercholesterolemia 46328813 Continue current medication and low fat/choles terol diet. Hypothyroidism 18995997 History of thyroidect pat due to goiter. Stable on current dose of Synthroid. Continue current medication s. TSH within normal (10/2013). Major depr essive disorder 578051301 Stable on Sertraline . Continue current medication . [id number] Marco Dooley MD , [facility], [address] [place] [address] 01/21/2014 10:22:47 01/21/2014 12:17:00 Varicella vaccination 10567966 Administra tion of diphtheria and tetanus vaccine 41852253 Neoplasm o f uncertain behavior of skin 18926907 Punch biopsy performed under a sterile technique and a local anesthesia . Patient tolerated the procedure well without complicati ons. Partial biopsy done. Advised to return in 7-10 days for suture removal. Wound care discussed. Advised to contact the clinic if worsening symptoms or fever, chills, bleeding, swelling or pain. [id number] Omid Griffin , [facility], [address] [place] [address] 01/29/2014 08:45:22 01/30/2014 09:08:26 Neoplasm of uncertain behavior of skin 70159398 [id number] Nunu Lock NP , [facility], [address] [place] [address] 05/02/2014 14:07:42 05/02/2014 14:34:16 Benign neoplasm of skin 92363570 reassured Pain in upper limb 790421147 Likely muscle or ligament strain - maybe from carrying heavy bag Stretches, heat, analgesics prn [id number] , [facility], [address] [place] [address] 07/25/2014 14:46:42 07/28/2014 09:36:04 Shoulder pain 87781853 Patient with clinical presentati on of right subacromia l bursitis. Discussed the condition and treatment options. Patient with positive Neer's and Hawkin's signs. Patient defers corticoste roid injection at this time. Rehabilita tive exercises discussed. Hand out given. Will refer to Physical Therapy for further evaluation and treatment. Advised to contact the clinic if no improvemen t of his symptoms. Indication s for UC/ER use discussed. [id number] Physical Therapy, [address] [address] 08/05/2014 12:24:28 08/06/2014 07:49:03 Shoulder pain 68199139 [id number] Fara Goncalves, OT Physical Therapy, [address] [address] 08/12/2014 14:54:49 08/13/2014 07:21:47 Shoulder pain 17987414 [id number] Fara Goncalves, OT Physical Therapy, [address] [address] 08/19/2014 15:01:31 08/20/2014 07:50:41 Shoulder pain 08262742 [id number] Marco Dooley MD , [facility], [address] [place] [address] 08/22/2014 10:57:09 08/22/2014 11:42:21 Shoulder pain 94840327 Patient with clinical presentati on of right subacromia l bursitis. Discussed the condition and treatment options. Patient with positive Neer's and Hawkin's signs. Patient would like to pursue corticoste roid injection at this time. Injection accomplish ed using a sterile technique. Patient tolerated the procedure well without complicati ons. Symptoms slowly improving with Physical Therapy. Rehabilita tive exercises discussed. Advised to contact the clinic if no improvemen t of his symptoms or worsening pain. Indication s for UC/ER use discussed. [id number] Fara Goncalves, OT Physical Therapy, [address] [address] 08/28/2014 13:57:21 08/28/2014 15:27:20 Shoulder pain [id number] [id number] Fara Goncalves, OT Physical Therapy, [address] [address] 09/04/2014 13:22:28 09/04/2014 15:57:23 Shoulder pain 94304689 [id number] Fara Goncalves, OT Physical Therapy, [address] [address] 09/25/2014 12:51:38 09/25/2014 15:07:05 Shoulder pain 22046602 [id number] Domonique Mejía Physical Therapy, [address] [address] 10/02/2014 14:24:07 10/03/2014 08:34:53 Shoulder pain 48835630 [id number] Nunu Burciaga MA , [facility], [address] [place] [address] 01/20/2015 11:11:56 01/20/2015 12:06:38 Adult health examination 622260560 See Risk Assessment and Lifestyle Change Counseling section above. Home/vehic le/sexual safety reviewed. Previously had negative colonoscop y at [facility] (11/2005). Next screening in 2015. Td and Singles vaccine UTD. Previously received Pneumovax- 23. Will administer Prevnar-13 today. Counseling [id number] Hypercholesterolemia 56788226 Stable. Marked improvemen t in LDL. Continue current medication and lifestyle modificati on. Hypothyroidism 39371670 Stable with normal TSH. Continue Levothyrox ine supplement ation. Major depr essive disorder 251213549 Stable on Sertraline . Continue current medication . Shoulder pain 20242570 M arkedly improved with a corticoste roid injection and Occupation al Therapy. Now on home exercise regimen. Active or passive immunization 674864870 [id number] Pilar Thorne , [facility], [address] [place] [address] 11/03/2015 16:59:01 11/04/2015 08:23:32 Viral sinusitis 829893053 B34.9 Rest, fluids, hot steam, neti pot, etc. Pt actually feeling better today. No acute symptoms or fever. Impacted cerumen 1155733 6 H61.23 Pt doesn't want his ears irrigated today. Will try otc drops at home [id number] Denise Sims , [facility], [address] [place] [address] 01/25/2016 14:08:11 01/25/2016 15:02:09 Adult health examination 234358953 Z00.00 See Risk Assessment and Lifestyle Change Counseling section above. Home/vehic le/sexual safety reviewed. Previously had negative colonoscop y at [facility] (11/2005). Next screening in 2015. Will make a referral to a local provider per patient request. Td and Singles vaccine UTD. Pneumovax- 23 and Prevnar-13 UTD. Counseling 547829443 Z71 .9 Screening for malignant neoplasm of colon 088086526 Z12.11 Colonoscop y 12/14/[address] Aquino at [facility]. Normal. No polyps. New referral made. Benign pro static hyperplasia 279955285 N40.0 Previously followed by [facility]. Would like a local Urology provider. No urine obstructiv e symptoms. Major depr essive disorder 030191757 F32.9 Stable on Sertraline . Continue current medication . Hypothyroidism 41825617 E03.9 Stable with previously normal TSH. Continue Levothyrox ine supplement ation. Hypercholesterolemia 136 63626 E78.2 Marked improvemen t in LDL. Continue current medication and lifestyle modificati on. [id number] Rock Escalona [facility] [address] [place] [address] 03/16/2016 09:25:00 03/16/2016 13:30:40 [id number] Anita Masseyclem, OD Eye Care, [facility] [address] [place] [address] 07/05/2016 09:09:48 07/05/2016 10:19:14 Presbyopia 47621779 H52.4 Pseudophakia 42887180 Z9 6.1 OU, clear , observe Posterior vitreous detachment 732532690 H43.813 discussed symptoms of retinal detachment , pt instructed to RTC floyd if occurs. [id number] Kameron Hernandez MD , [facility], [address] [place] [address] 10/10/2016 15:41:12 10/10/2016 16:00:58 Benign paroxysmal positional vertigo 833208840 H81.11 reassuranc e and educated as to the condition. if gets worse, call [id number] Donaldo Lopez , [facility], [address] [place] [address] 12/26/2016 08:40:35 12/26/2016 08:55:45 Skin lesion 69026007 L98.9 Several facial skin lesions. Previous history of pre-cance antionette skin lesion removal. Likely seborrheic keratosis, but cannot rule out BCC. Right cheek lesion appears to be an epidermoid cyst. Given multiple lesions, will refer to Dermatolog y. [id number] Marco Dooley MD , [facility], [address] [place] [address] 01/31/2017 11:14:11 01/31/2017 11:52:05 Adult health examination 311751712 Z00.00 See Risk Assessment and Lifestyle Change Counseling section above. Home/vehic le/sexual safety reviewed. Previously had negative colonoscop y 02/2016. Td and Singles vaccine UTD. Pneumovax- 23 and Prevnar-13 UTD. Optometry exam UTD. Counseling 810040729 Z71 .9 Skin lesion 21421337 L98 .9 Several facial skin lesions. Previous history of pre-cance antionette skin lesion removal. Likely seborrheic keratosis, but cannot rule out BCC. Right cheek lesion appears to be an epidermoid cyst. Given multiple lesions, will refer to Dermatolog y. Has an upcoming appointmen t (02/23/2017) . Benign pro static hyperplasia 361686888 N40.0 Previously followed by [facility]rology. Recently establishe d care with Dr. Stephane Mcdonald. Symptoms improved with Finasterid e. PSA within normal. No urine obstructiv e symptoms. Major depr essive disorder 069205614 F32.9 Stable on Sertraline . Continue current medication . Hypothyroidism 80019276 E03.9 Stable with previously normal TSH. Continue Levothyrox ine supplement ation. Hypercholesterolemia 136 01063 E78.2 Marked improvemen t in LDL. Continue current medication and lifestyle modificati on. [id number] hSarda Montero NP FP, [facility], [address] [place] [address] 04/07/2017 08:34:43 04/07/2017 08:52:10 Radicular pain 74324296 M54.10 Enc. ice, advil prn, gentle ROM/stretc filiberto and referred to PT for evaluation /treatment as below. Pt to f/u with PCP if not gradually improving or if sx worsening [id number] , PT Physical Therapy, [facility] [address] [place] [address] 04/19/2017 12:59:36 04/19/2017 17:47:22 Cervical radiculopathy 25813006 M54.12 71 year old {{female m mark*}} with signs and symptoms consistent with {{acute on chronic# a cute chron ic recurre nt}} {{neck pain with mobility deficit.* neck pain with movement co-ordinat ion impairment . neck pain with radiculopa thy. neck pain with headache.} }We're unable to reproduce his arm symptoms from his cervical spine today. Patient has significan t functional limitation in their {{activiti es of daily living act ivities of daily living and work capacity a ctivities of daily living and exercise capacity a ctivities of daily living and recreation *}}. Skilled physical therapy is needed to safely and progressiv alta address impairment s and functional limitation s as outlined above. Patient Goals: be able to drive, turn his head and reach without neck pain, arm pain and with resolution of the tingling in his medial hands. Clinical Goals: 1. Demonstrat e pain free neck range of motion. 2. Demonstrat es sufficient upper quarter muscular endurance to meet functional demands. Treatment Plan: Patient to return for {{4 6* 8 1 0}} visits over {{4 8* 12} } weeks. We expect significan t change in pain, impairment and function in this time frame. Treatment to Include: Therapeuti c exercise, manual therapy and traction as helpful [id number] , PT Physical Therapy, [facility] [address] [place] [address] 05/03/2017 11:20:50 05/03/2017 15:36:43 Cervical radiculopathy 50132322 M54.12 Patient Goals: be able to drive, turn his head and reach without neck pain, arm pain and with resolution of the tingling in his medial hands. - No problems with turning or reaching still gets tingling at less intensity that resolves quickly upon changing position. Clinical Goals: 1. Demonstrat e pain free neck range of motion. 2. Demonstrat es sufficient upper quarter muscular endurance to meet functional demands.- Goals met [id number] Anita Villela, OD Eye Care, [facility] [address] [place] [address] 07/06/2017 08:34:16 07/06/2017 09:26:21 Regular astigmatism 87243623 H52.223 Pseudophakia 45033870 Z9 6.1 clear OU. Blepharitis 84470393 H01 .9 pt ed. could start hot compresses with lid massage 1-2 x per day and Artificial tears 2-4 x per day if tearing is bothersome . Posterior vitreous detachment 024659221 H43.813 floaters stable OU, retina intact OU, discussed symptoms of retinal detachment , pt instructed to RTC floyd if occurs. [id number] Marco Dooley MD , [facility], [address] [place] [address] 08/01/2017 09:31:16 08/01/2017 10:02:28 Benign prostatic hyperplasia 668579897 N40.0 Previously followed by [facility]rology. Recently establishe d care with Dr. Stephane Mcdonald. Symptoms improved with Finasterid e. PSA within normal. No urine obstructiv e symptoms. Major depr essive disorder 667608301 F32.9 Stable on Sertraline . Continue current medication . Hypothyroidism 94191690 E03.9 Stable with previously normal TSH. Continue Levothyrox ine supplement ation. Hypercholesterolemia 136 28666 E78.2 Marked improvemen t in LDL. Continue current medication and lifestyle modificati on. Nonvenomou s insect bite of multiple sites 718778815 W57.XXXA Recent tick bite with potentiall y greater than 36 hour attachment in Lyme endemic region. Treated with Doxycyclin e 200mg from ER. Advised to monitor for fever, arthralgia , neck pain, rash, focal neurologic deficit, RODRIGUEZ or fatigue for 30 days post-expos ure. Advised to seek medical attention if these symptoms occur. Strategies to prevent future tick bites discussed including wearing long pants and using insect repellents . Shoulder pain 53431364 M 25.511 Markedly improved with a corticoste roid injection and Occupation al Therapy. Now on home exercise regimen. Verruca vulgaris 8283386 3 B07.9 Right inner thigh verrucous skin lesion. Applied cryotherap y. Tolerated the procedure well. Wound care reviewed. [id number] Marco Dooley MD , [facility], [address] [place] [address] 02/06/2018 11:11:02 02/06/2018 12:24:09 Adult health examination 464306001 Z00.00 See Risk Assessment and Lifestyle Change Counseling section above. Home/vehic le/sexual safety reviewed. Routine eye/dental care reviewed. Vaccines UTD. Last colonoscop y was negative (02/2016). Counseling 477662959 Z71 .9 Depression screening 171 328142 Z13.89 depression screening tool administer ed, entered into emr, scored and discussed, time greater than 7.5 minutes Benign pro static hyperplasia 553276653 N40.0 Previously followed by [facility]. Recently establishe d care with Dr. Stephane Mcdonald. Symptoms improved with Finasterid e. PSA within normal. No urine obstructiv e symptoms. Major depr essive disorder 371680653 F32.9 Stable on Sertraline . Continue current medication . Previously followed by Dr. Paez who has retired. Now has an appointmen t with Dr. Hobson in [place]. Hypothyroidism 57375722 E03.9 Recently found to have elevated TSH at 7.20 (01/2018). Patient with surgical hypothyroi dism. Previously stable at Synthroid 137mcg daily dose for about 10 years. Will repeat in 4 weeks before considerin g any dose adjustment . Hypercholesterolemia 136 44389 E78.2 Marked improvemen t in LDL. Continue current medication and lifestyle modificati on. Reduced libido 4175405 R 68.82 Has been on Sertraline for many years. Also on Finasterid e. Difficulty completing ejaculatio n. Never tried Tamsulosin . Has an upcoming appointmen t with Urology. Active or passive immunization 944010781 Z23 [id number] Anita Villela, OD Eye Care, [facility] [address] [place] [address] 07/10/2018 08:28:15 07/10/2018 09:29:34 Regular astigmatism 68748478 H52.223 no change in glasses Pseudophakia 52298231 Z9 6.1 clear OU. Blepharitis 85019696 H01 .9 pt ed. could start hot compresses with lid massage 1-2 x per day and Artificial tears 2-4 x per day for itching or if tearing is bothersome . Posterior vitreous detachment 668577654 H43.813 floaters stable OU, retina intact OU, discussed symptoms of retinal detachment , pt instructed to RTC floyd if occurs. Excess skin of eyelid 24 0085371 H02.831 H02.834 mild to moderate dermatocha lasis OU, pt reports good vision and not bothersome to patient. will observe for now. [id number] Sharda Montero NP , [facility], [address] [place] [address] 07/26/2018 11:00:21 07/26/2018 11:20:03 Broken blood vessel 534838587 R58 Patient reassured broken blood vessel. Patient has a f/u in two weeks with pcp. Patient advised to call if not better or new symptoms occur. [id number] Marco Dooley MD , [facility], [address] [place] [address] 08/07/2018 09:15:02 08/07/2018 10:04:11 Hypothyroidism 86583959 E03.9 Previously found to have elevated TSH at 7.20 (01/2018). Patient with surgical hypothyroi dism. Previously stable at Synthroid 137mcg daily dose for about 10 years. Will repeat TSH today. Hypercholesterolemia 136 29745 E78.2 Marked improvemen t in LDL. Continue current medication and lifestyle modificati on. Major depr essive disorder 605615219 F32.9 Stable on Sertraline . Continue current medication . Previously followed by Dr. Paez who has retired. Now has an appointmen t with Dr. Hobson in [place]. Benign pro static hyperplasia 865074480 N40.0 Previously followed by [facility]. Recently establishe d care with Dr. Stephane Mcdonald. Symptoms improved with Finasterid e. PSA within normal. No urine obstructiv e symptoms. Burst blood vessel 82032 7009 R58 Recently seen for left lower eyelid issues. Now resolved. Migraine 70349604 G43.90 9 Reports intermitte nt RODRIGUEZ in the left frontal area with nausea. No visual changes. Patient is taking Excedrin with relief of his symptoms. Patient denies prodromes of migraine RODRIGUEZ (no visual scotomata) . Will monitor. Discussed about maintenanc e medication if symptoms become more frequent. Chokes whe n swallowing 273281193 R09.89 Had a chocking episode about twenty years ago. Patient states he had another episode recently. Occurred in a setting when he was not eating. Symptoms transient. No wheezing. Discussed barium swallow test, but would like to defer at this time. Patient will contact when ready for this test. 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 No carotid bruits on exam. Will get a formal Carotid US. Occasional dizziness, but no syncope or LOC. Vasovagal symptom 854452 009 R55 Patient reports occasional dizziness when bending over and getting up quickly. No LOC or syncope. Encouraged ample hydration and avoidance of diuretics. [id number] Marco Dooley MD , [facility], [address] [place] [address] 09/12/2018 16:56:00 09/12/2018 17:11:24 Balanitis 17081225 N48.1 Suspect fungal origin. Recommende d to stop using HC 1% cream. Advised to apply Clotrimazo le 1% cream bid for 1 week. Advised to avoid washing the area excessivel y. Advised to contact the clinic if no improvemen t. [id number] Marco Dooley MD , [facility], [address] [place] [address] 02/08/2019 14:10:30 02/08/2019 15:15:53 Adult health examination [id number] Z00.00 See Risk Assessment and Lifestyle Change Counseling section above. Home/vehic le/sexual safety reviewed. Routine eye/dental care reviewed. Vaccines UTD. Last colonoscop y was negative (02/2016). Counseling [id number] Z71 .9 Depression screening 171 445785 Z13.89 depression screening tool administer ed, entered into emr, scored and discussed, time greater than 7.5 minutes Hypothyroidism 77901699 E03.9 Previously stable at Synthroid 137mcg daily with normal TSH. Will repeat TSH. Hypercholesterolemia 136 12482 E78.2 Marked improvemen t in LDL. Continue current medication and lifestyle modificati on. Check FLP. Major depr essive disorder [id number] F32.9 Was on Sertraline , but decreased libido. Much improved now with Bupropion. Now followed by Dr. Hobson in [place] (Psychiatr y). Benign pro static hyperplasia 441987747 N40.0 Previously followed by [facility] Urology. Recently establishe d care with Dr. Stephane Mcdonald. Symptoms improved with Finasterid e. PSA within normal and stable previously . Agrees with not checking further PSA unless worsening symptoms. No urine obstructiv e symptoms. Migraine 98069565 G43.90 9 Reports intermitte nt RODRIGUEZ in the left frontal area with nausea. No visual changes. Patient is taking Excedrin with relief of his symptoms. Patient denies prodromes of migraine RODRIGUEZ (no visual scotomata) . Will monitor. Discussed about maintenanc e medication if symptoms become more frequent. Chokes whe n swallowing 201579291 R09.89 Had a chocking episode about twenty years ago. Patient states he had another episode recently. Occurred in a setting when he was not eating. Symptoms transient. No wheezing. Discussed barium swallow test, but would like to defer at this time. Patient will contact when ready for this test. States no recurrence since his last evaluation . Disorder o f carotid artery 054515215 I77.9 Patient states at [facility] wellness exam he was told he has a blockage in carotid artery. No carotid bruits on exam. Unremarkab le Carotid US. Occasional dizziness, but no syncope or LOC. Vasovagal symptom 952233 009 R55 Patient reports occasional dizziness when bending over and getting up quickly. No LOC or syncope. Encouraged ample hydration and avoidance of diuretics. Impotence 840682074 N52. 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 Posterior vitreous detachment 007563387 H43.813 floaters stable OU, retina intact OU, RTC FLOYD if increased floaters, flashes, or loss of vision occur. Excess skin of eyelid 24 8432996 H02.831 H02.834 mild to moderate dermatocha lasis OU, pt reports good vision and not bothersome to patient. will observe for now. [id number] Sharda Montero NP , [facility], [address] [place] [address] 08/19/2019 14:12:35 08/19/2019 14:49:02 Common cold 28972315 J00 Reassured. Symptoms consistent with viral Upper Respirator y Infection, not a bacterial sinus infection. Encouraged adequate fluids/res t and over the counter analgesics as needed. Follow up for worsening symptoms (i.e. fever, chest pain, shortness of breath). [id number] Marco Dooley MD FP, [facility], [address] [place] [address] 03/02/2020 11:01:18 03/05/2020 14:10:41 Major depressive disorder 975838536 F32.9 Was on Sertraline , but decreased libido. Much improved now with Bupropion. Now followed by Dr. Hobson in [place] (Psychiatr y). Adult heal th examination 186281292 Z00.00 See Risk Assessment and Lifestyle Change Counseling section above. Home/vehic le/sexual safety reviewed. Routine eye/dental care reviewed. Vaccines UTD. Last colonoscop y was negative (02/2016). Counseling 490946422 Z71 .9 including cardiovasc ular risk reduction counseling Depression screening 171 482184 Z13.89 depression screening tool administer ed, entered into emr, scored and discussed, time greater than 7.5 minutes Screening for alcohol abuse 120150652 Z13.39 Hypothyroidism 32730974 E03.9 Previously stable at Synthroid 137mcg daily. Most recent TSH 0.44 (02/2020). Will repeat TSH in 3 months. Hypercholesterolemia 136 48301 E78.2 Marked improvemen t in LDL. Continue current medication and lifestyle modificati on. Check FLP. Benign pro static hyperplasia 799195826 N40.0 Previously followed by [facility] Urology. Recently establishe d care with Dr. Stephane Mcdonald. Symptoms improved with Finasterid e. PSA within normal and stable previously . Agrees with not checking further PSA unless worsening symptoms. No urine obstructiv e symptoms. Migraine 30585469 G43.90 9 Reports intermitte nt RODRIGUEZ in the left frontal area with nausea. No visual changes. Patient is taking Excedrin with relief of his symptoms. Patient denies prodromes of migraine RODRIGUEZ (no visual scotomata) . Will monitor. Discussed about maintenanc e medication if symptoms become more frequent. Chokes whe n swallowing 327380328 R09.89 Had a chocking episode about twenty years ago. Had another episode about 1 year ago. Occurred in a setting when he was not eating. No recurrence . No wheezing. Discussed barium swallow test, but would like to defer at this time. Patient will contact when ready for this test. States no recurrence since his last evaluation . 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 No carotid bruits on exam. Unremarkab le Carotid US. Occasional dizziness, but no syncope or LOC. Vasovagal symptom 784972 009 R55 Patient reports occasional dizziness when bending over and getting up quickly. No LOC or syncope. Encouraged ample hydration and avoidance of diuretics. Impotence 487575551 N52. 9 Pain in ri ght hip joint 5849229792 02367 M25.551 Intermitte nt pain in the right lateral thigh, especially when sleeping on this right side. No signficant pain. Suspect bursitis vs. ITB syndrome. Discussed ER and ABD exercises. Advised to contact the clinic if no improvemen t. Will consider PT. [id number] Denzel Echavarria MD , [facility], [address] [place] [address] 08/24/2020 11:32:15 09/08/2020 08:48:25 Epididymitis 76332604 N45.1 ibuprofen f/u prn [id number] , [facility], [address] [place] [address] 09/17/2020 14:26:34 09/21/2020 11:50:42 Inguinal pain 252172911 R10.2 R side worse than left. Onset 2-3 days ago. Tender, not painful. Recently seen for pain in scrotum, dx with epididymit is 3 weeks ago, pain now resolved. Denies erythema, edema, or palpable mass. Denies urinary sxs. Will order US to rule in/out hernia. Rest, no heavy lifting, ibuprofen or tylenol for pain, can try applying warm compress. F/u if sxs worsen. [id number] Marco Dooley MD , [facility], [address] [place] [address] 12/21/2020 16:03:32 12/22/2020 11:34:41 Inguinal pain 677041638 R10.2 Ongoing intermitte nt inguinal pain (right side worse). Met with several other providers at [facility], then Urology. Feels like getting kicked in the area. Previous scrotal U/S revealed a small right-side d varicocele . Pain is not within the scrotum. Renal U/S unremarkab le other than mild prostatome jaquelin. Major depr essive disorder 596357263 F32.9 Was on Sertraline , but decreased libido. Much improved now with Bupropion. Now followed by Dr. Hobson in [place] (Psychiatr y). Hypothyroidism 27160632 E03.9 Previously stable at Synthroid 137mcg daily. Most recent TSH 0.44 (02/2020). Will repeat TSH. Hypercholesterolemia 136 24802 E78.2 Marked improvemen t in LDL. Continue current medication and lifestyle modificati on. Check FLP. Benign pro static hyperplasia 542648607 N40.0 Previously followed by [facility] Urology. Now locally establishe d care with Dr. Stephane Mcdonlad. Symptoms improved with Finasterid e. PSA within normal and stable previously . Agrees with not checking further PSA unless worsening symptoms. No urine obstructiv e symptoms. Varicocele 40657139 I86. 1 Patient incidental ly found to have a small right-side d varicocele . Recommende d further work-up to rule out obstructin g lesion related to the right gonadal vein (as most varicocele s are bilateral or left-sided only). Discussed the recommenda tion. Previously wanted to defer CT A/P (with BMP) until after decreased COVID-19 exposure risk. Now fully vaccinated . Reasonable to check CT A/P given persitent symptoms (although somewhat improved) and has no testicular pain. [id number] Marco Dooley MD , [facility], [address] [place] [address] 03/17/2021 08:30:01 03/17/2021 09:10:23 Adult health examination 335488205 Z00.00 See Risk Assessment and Lifestyle Change Counseling section above. Home/vehic le/sexual safety reviewed. Routine eye/dental care reviewed. Vaccines UTD. Last colonoscop y was negative (02/2016). Counseling 644573766 Z71 .9 Including cardiovasc ular risk reduction counseling . Depression screening 171 103052 Z13.31 depression screening tool administer ed, entered into emr, scored and discussed, time greater than 7.5 minutes Screening for alcohol abuse 519800246 Z13.39 Inguinal pain 965341735 R10.2 Ongoing intermitte nt inguinal pain (right side worse). Met with several other providers at [facility], then Urology. Feels like getting kicked in the area. Previous scrotal U/S revealed a small right-side d varicocele . Pain is not within the scrotum. Renal U/S unremarkab le other than mild prostatome jaquelin. Major depr essive disorder 416263089 F32.9 Was on Sertraline , but decreased libido. Better with Bupropion. Now followed by Dr. Hobson in [place] (Psychiatr y). Feels worsening depression . Denies any concerns with self harm. Difficulty focusing. Patient left a message with Dr. Hobson. Consider doubling the dose. Hypothyroidism 91379465 E03.9 Previously stable at Synthroid 137mcg daily. Most recent TSH 1.35 (12/2020). Hypercholesterolemia 136 38644 E78.2 Marked improvemen t in LDL. Continue current medication and lifestyle modificati on. Benign pro static hyperplasia 271746357 N40.0 Previously followed by [facility]rology. Now locally establishe d care with Dr. Stephane Mcdonald. Symptoms improved with Finasterid e. PSA within normal and stable previously . Agrees with not checking further PSA unless worsening symptoms. No urine obstructiv e symptoms. Varicocele 95794488 I86. 1 Patient incidental ly found to have a small right-side d varicocele . Recommende d further work-up to rule out obstructin g lesion related to the right gonadal vein (as most varicocele s are bilateral or left-sided only). Discussed the recommenda tion. Previously wanted to defer CT A/P (with BMP) until after decreased COVID-19 exposure risk. Now fully vaccinated . Does not want to pursue CT after speaking to Urology who felt it was unnecessar y. Pain in ri ght hip joint 4847461963 82653 M25.551 Intermitte nt pain in the right lateral thigh, especially when sleeping on this right side. No significan t pain. Suspect bursitis vs. ITB syndrome. Discussed ER and ABD exercises. Advised to contact the clinic if no improvemen t. Will check X-ray and PT. No limitation with activity. Neck pain 11661105 M54.2 Mostly bothered with lateral rotations in both directions . Notices more when turning while driving. No radiating symptoms. Will check X-ray. Dizziness 149157921 R42 No current symptoms. Home Kaveh maneuver discussed. Non-focal exam. [id number] Daniela William, PT Physical Therapy, [address] [address] 04/13/2021 10:00:39 04/14/2021 08:30:46 Neck pain 32133867 M54.2 Patient is a 75-year old {{female m mark*}} who presents to physical therapy with c/o decreased cervical ROM. Physical examinatio n revealed decreased cervical ROM most limited in extension, decreased cervical and thoracic segmental mobility, TTP during PA glide and lateral glide at L transverse process of C5, C6 & C7, and poor postural habits. Suspect decreased mobility is due to degenerati ve changes noted on recent x-ray.Winnie ent has {{signific ant modera te* mild}} functional limitation in their {{activiti es of daily living* ac tivities of daily living and work capacity a ctivities of daily living and exercise capacity a ctivities of daily living and recreation }}. {{His* Her Their}} primary limitation s are with any activity requiring cervical extension or cervical rotation, such as looking over his shoulder while driving. Skilled physical therapy is indicated to safely and progressiv alta address impairment s and functional limitation s as outlined below. Patient is a {{good* fa ir poor}} candidate for physical therapy due to active lifestyle, good support system, and motivation to actively participat e in {{his* her their}} plan of care.Patie nt Goals:1. Turn my head without limitation to improve my safety while driving. Clinical Goals:In 4-6 weeks, patient will:1. Demonstrat e symmetric pain free active motions of the {{cervical spine* upp er extremitie s shoulder elbow wri st lumbar spine lowe r extremitie s hip knee ankle}}.2 . Demonstrat e good postural habits.3. Demonstrat e independen ce with HEP for cervical mobility, postural re-educati on, and self care techniques to decrease risk of further loss of function.T reatment Plan: Patient to return for {{4 6 8 10 *}} visits over {{4 8 12*} } weeks. We expect significan t change in pain, impairment and function in this time frame.Clementine tment to Include: Continuing assessment , therapeuti c exercise, patient education, HEP (initiated ), manual therapy PRN, modalities PRN. [id number] Daniela William, PT Physical Therapy, [address] [address] 04/20/2021 11:01:55 04/20/2021 15:42:12 Neck pain [id number] M54.2 Patient is a 75-year old {{female m mark*}} who presents to physical therapy with c/o decreased cervical ROM. Physical examinatio n revealed decreased cervical ROM most limited in extension, decreased cervical and thoracic segmental mobility, TTP during PA glide and lateral glide at L transverse process of C5, C6 & C7, and poor postural habits. Suspect decreased mobility is due to degenerati ve changes noted on recent x-ray.Winnie ent has {{signific ant modera te* mild}} functional limitation in their {{activiti es of daily living* ac tivities of daily living and work capacity a ctivities of daily living and exercise capacity a ctivities of daily living and recreation }}. {{His* Her Their}} primary limitation s are with any activity requiring cervical extension or cervical rotation, such as looking over his shoulder while driving. Skilled physical therapy is indicated to safely and progressiv alta address impairment s and functional limitation s as outlined below. Patient is a {{good* fa ir poor}} candidate for physical therapy due to active lifestyle, good support system, and motivation to actively participat e in {{his* her their}} plan of care.Patie nt Goals:1. Turn my head without limitation to improve my safety while driving. Clinical Goals:In 4-6 weeks, patient will:1. Demonstrat e symmetric pain free active motions of the {{cervical spine* upp er extremitie s shoulder elbow wri st lumbar spine lowe r extremitie s hip knee ankle}}.2 . Demonstrat e good postural habits.3. Demonstrat e independen ce with HEP for cervical mobility, postural re-educati on, and self care techniques to decrease risk of further loss of function.T reatment Plan: Patient to return for {{4 6 8 10 *}} visits over {{4 8 12*} } weeks. We expect significan t change in pain, impairment and function in this time frame.Clementine tment to Include: Continuing assessment , therapeuti c exercise, patient education, HEP (initiated ), manual therapy PRN, modalities PRN. [id number] Daniela William, PT Physical Therapy, [address] [address] 04/29/2021 12:58:50 04/30/2021 17:50:25 Neck pain [id number] M54.2 Patient is a 75-year old {{female m mark*}} who presents to physical therapy with c/o decreased cervical ROM. Physical examinatio n revealed decreased cervical ROM most limited in extension, decreased cervical and thoracic segmental mobility, TTP during PA glide and lateral glide at L transverse process of C5, C6 & C7, and poor postural habits. Suspect decreased mobility is due to degenerati ve changes noted on recent x-ray.Winnie ent has {{signific ant modera te* mild}} functional limitation in their {{activiti es of daily living* ac tivities of daily living and work capacity a ctivities of daily living and exercise capacity a ctivities of daily living and recreation }}. {{His* Her Their}} primary limitation s are with any activity requiring cervical extension or cervical rotation, such as looking over his shoulder while driving. Skilled physical therapy is indicated to safely and progressiv alta address impairment s and functional limitation s as outlined below. Patient is a {{good* fa ir poor}} candidate for physical therapy due to active lifestyle, good support system, and motivation to actively participat e in {{his* her their}} plan of care.Patie nt Goals:1. Turn my head without limitation to improve my safety while driving. Clinical Goals:In 4-6 weeks, patient will:1. Demonstrat e symmetric pain free active motions of the {{cervical spine* upp er extremitie s shoulder elbow wri st lumbar spine lowe r extremitie s hip knee ankle}}.2 . Demonstrat e good postural habits.3. Demonstrat e independen ce with HEP for cervical mobility, postural re-educati on, and self care techniques to decrease risk of further loss of function.T reatment Plan: Patient to return for {{4 6 8 10 *}} visits over {{4 8 12*} } weeks. We expect significan t change in pain, impairment and function in this time frame.Clementine tment to Include: Continuing assessment , therapeuti c exercise, patient education, HEP (initiated ), manual therapy PRN, modalities PRN. [id number] Daniela William, PT Physical Therapy, [address] [address] 05/11/2021 09:31:50 05/11/2021 11:19:24 Neck pain [id number] M54.2 Patient is a 75-year old {{female m mark*}} who presents to physical therapy with c/o decreased cervical ROM. Physical examinatio n revealed decreased cervical ROM most limited in extension, decreased cervical and thoracic segmental mobility, TTP during PA glide and lateral glide at L transverse process of C5, C6 & C7, and poor postural habits. Suspect decreased mobility is due to degenerati ve changes noted on recent x-ray.Winnie ent has {{signific ant modera te* mild}} functional limitation in their {{activiti es of daily living* ac tivities of daily living and work capacity a ctivities of daily living and exercise capacity a ctivities of daily living and recreation }}. {{His* Her Their}} primary limitation s are with any activity requiring cervical extension or cervical rotation, such as looking over his shoulder while driving. Skilled physical therapy is indicated to safely and progressiv alta address impairment s and functional limitation s as outlined below. Patient is a {{good* fa ir poor}} candidate for physical therapy due to active lifestyle, good support system, and motivation to actively participat e in {{his* her their}} plan of care.Patie nt Goals:1. Turn my head without limitation to improve my safety while driving. Clinical Goals:In 4-6 weeks, patient will:1. Demonstrat e symmetric pain free active motions of the {{cervical spine* upp er extremitie s shoulder elbow wri st lumbar spine lowe r extremitie s hip knee ankle}}.2 . Demonstrat e good postural habits.3. Demonstrat e independen ce with HEP for cervical mobility, postural re-educati on, and self care techniques to decrease risk of further loss of function.T reatment Plan: Patient to return for {{4 6 8 10 *}} visits over {{4 8 12*} } weeks. We expect significan t change in pain, impairment and function in this time frame.Clementine tment to Include: Continuing assessment , therapeuti c exercise, patient education, HEP (initiated ), manual therapy PRN, modalities PRN. [id number] Daniela William, PT Physical Therapy, [address] [address] 05/19/2021 14:00:29 05/19/2021 17:13:54 Neck pain [id number] M54.2 Patient Goals:1. Turn my head without limitation to improve my safety while driving. Clinical Goals:In 4-6 weeks, patient will:1. Demonstrat e symmetric pain free active motions of the {{cervical spine* upp er extremitie s shoulder elbow wri st lumbar spine lowe r extremitie s hip knee ankle}}.2 . Demonstrat e good postural habits.3. Demonstrat e independen ce with HEP for cervical mobility, postural re-educati on, and self care techniques to decrease risk of further loss of function.T reatment Plan: Patient to return for {{4 6 8 10 *}} visits over {{4 8 12*} } weeks. We expect significan t change in pain, impairment and function in this time frame.Clementine tment to Include: Continuing assessment , therapeuti c exercise, patient education, HEP (initiated ), manual therapy PRN, modalities PRN. [id number] Daniela William, PT Physical Therapy, [address] [phone] 06/07/2021 17:27:39 06/08/2021 09:24:39 Neck pain [id number] M54.2 Patient Goals:1. Turn my head without limitation to improve my safety while driving. Clinical Goals:In 4-6 weeks, patient will:1. Demonstrat e symmetric pain free active motions of the {{cervical spine* upp er extremitie s shoulder elbow wri st lumbar spine lowe r extremitie s hip knee ankle}}.2 . Demonstrat e good postural habits.3. Demonstrat e independen ce with HEP for cervical mobility, postural re-educati on, and self care techniques to decrease risk of further loss of function.T reatment Plan: Patient to return for {{4 6 8 10 *}} visits over {{4 8 12*} } weeks. We expect significan t change in pain, impairment and function in this time frame.Clementine tment to Include: Continuing assessment , therapeuti c exercise, patient education, HEP (initiated ), manual therapy PRN, modalities PRN. [id number] aDniela William, PT Physical Therapy, [address] [address] 06/14/2021 14:01:07 06/14/2021 15:04:41 Neck pain [id number] M54.2 Patient Goals:1. Turn my head without limitation to improve my safety while driving. Clinical Goals:In 4-6 weeks, patient will:1. Demonstrat e symmetric pain free active motions of the {{cervical spine* upp er extremitie s shoulder elbow wri st lumbar spine lowe r extremitie s hip knee ankle}}.2 . Demonstrat e good postural habits.3. Demonstrat e independen ce with HEP for cervical mobility, postural re-educati on, and self care techniques to decrease risk of further loss of function.T reatment Plan: Patient to return for {{4 6 8 10 *}} visits over {{4 8 12*} } weeks. We expect significan t change in pain, impairment and function in this time frame.Clementine tment to Include: Continuing assessment , therapeuti c exercise, patient education, HEP (initiated ), manual therapy PRN, modalities PRN. [id number] Anita Villela, OD Eye Care, [facility] [address] [place] [address] 06/25/2021 12:50:50 06/25/2021 13:37:47 Regular astigmatism 18955103 H52.223 no change in glasses Pseudophakia 49334372 Z9 6.1 clear OU. Posterior vitreous detachment 109984822 H43.813 floaters stable OU, retina intact OU, RTC FLOYD if increased floaters, flashes, or loss of vision occur. Excess skin of eyelid 24 6854458 H02.831 H02.834 mild to moderate dermatocha lasis OU, pt reports good vision and not bothersome to patient. will observe for now. [id number] Daniela William, PT Physical Therapy, [facility] [address] [place] [address] 06/28/2021 13:54:56 06/28/2021 15:44:53 Neck pain 19045101 M54.2 Patient Goals:1. Turn my head without limitation to improve my safety while driving. Clinical Goals:In 4-6 weeks, patient will:1. Demonstrat e symmetric pain free active motions of the {{cervical spine* upp er extremitie s shoulder elbow wri st lumbar spine lowe r extremitie s hip knee ankle}}.2 . Demonstrat e good postural habits.3. Demonstrat e independen ce with HEP for cervical mobility, postural re-educati on, and self care techniques to decrease risk of further loss of function.T reatment Plan: Patient to return for {{4 6 8 10 *}} visits over {{4 8 12*} } weeks. We expect significan t change in pain, impairment and function in this time frame.Clementine tment to Include: Continuing assessment , therapeuti c exercise, patient education, HEP (initiated ), manual therapy PRN, modalities PRN. [id number] Daniela William, PT Physical Therapy, [address] [address] 07/09/2021 10:58:13 07/09/2021 13:40:47 Neck pain [id number] M54.2 Patient Goals:1. Turn my head without limitation to improve my safety while driving. Clinical Goals:In 4-6 weeks, patient will:1. Demonstrat e symmetric pain free active motions of the {{cervical spine* upp er extremitie s shoulder elbow wri st lumbar spine lowe r extremitie s hip knee ankle}}.2 . Demonstrat e good postural habits.3. Demonstrat e independen ce with HEP for cervical mobility, postural re-educati on, and self care techniques to decrease risk of further loss of function.T reatment Plan: Patient to return for {{4 6 8 10 *}} visits over {{ 8 12*} } weeks. We expect significan t change in pain, impairment and function in this time frame.Clementine tment to Include: Continuing assessment , therapeuti c exercise, patient education, HEP (initiated ), manual therapy PRN, modalities PRN. [id number] Daniela William, PT Physical Therapy, [address] [address] 07/30/2021 10:59:39 07/30/2021 11:45:52 Neck pain [id number] M54.2 Patient Goals:1. Turn my head without limitation to improve my safety while driving. Clinical Goals:In 4-6 weeks, patient will:1. Demonstrat e symmetric pain free active motions of the {{cervical spine* upp er extremitie s shoulder elbow wri st lumbar spine lowe r extremitie s hip knee ankle}}.2 . Demonstrat e good postural habits.3. Demonstrat e independen ce with HEP for cervical mobility, postural re-educati on, and self care techniques to decrease risk of further loss of function.T reatment Plan: Patient to return for {{4 6 8 10 *}} visits over {{4 8 12*} } weeks. We expect significan t change in pain, impairment and function in this time frame.Clementine tment to Include: Continuing assessment , therapeuti c exercise, patient education, HEP (initiated ), manual therapy PRN, modalities PRN. [id number] Zena Jaramillo PA-C , [facility], [address] [place] [address] 08/05/2021 10:11:25 08/06/2021 12:40:38 Acute upper respiratory infection [id number] J06.9 URI sxs with nasal congestion and sinus pressure; had COVID booster. Benign exam.Advis ed to take Zyrtec or claritin AND flonase along with the neti pot which he is already using.If sxs persist beyond another 5 days or acutely worsen, please call. [id number] Mendy Hawkins MD , [facility], [address] [place] [address] 08/09/2021 13:43:41 08/27/2021 13:18:49 Impacted cerumen in left ear [id number] 807429 H61.22 resolved with rinse; counseled H2O2 1:1 with H2O twice a week to maintain clear ears [id number] Daniela William, PT Physical Therapy, [facility] [address] [place] [address] 08/20/2021 11:04:00 08/20/2021 11:49:02 Neck pain 80958425 M54.2 Patient Goals:1. Turn my head without limitation to improve my safety while driving. (Met 08/20/21) Clinical Goals:In 4-6 weeks, patient will:1. Demonstrat e symmetric pain free active motions of the {{cervical spine* upp er extremitie s shoulder elbow wri st lumbar spine lowe r extremitie s hip knee ankle}}. (Met 08/20/21)2. Demonstrat e good postural habits. (Met 08/20/21)3. Demonstrat e independen ce with HEP for cervical mobility, postural re-educati on, and self care techniques to decrease risk of further loss of function. (Met 08/20/21)Tr eatment Plan: Patient to return for {{4 6 8 10 *}} visits over {{4 8 12*} } weeks. We expect significan t change in pain, impairment and function in this time frame.Clementine tment to Include: Continuing assessment , therapeuti c exercise, patient education, HEP (initiated ), manual therapy PRN, modalities PRN. [id number] Gretchen Schuster MD , [facility], [address] [place] [address] 03/22/2022 09:17:05 03/23/2022 11:57:06 Adult health examination [id number] Z00.00 OK to stop ASA Counseling 112910965 Z71 .9 including cardiovasc ular risk reduction counseling Depression screening 171 804328 Z13.31 depression screening tool administer ed, entered into emr, scored and discussed, time greater than 7.5 minutes Screening for alcohol abuse 116440340 Z13.39 Stiff neck 205678801 M43 .6 Lets give PT another try Skin tag [id number] L91.8 Please come back for removal Hypothyroidism 14399200 E03.9 Major depr essive disorder [id number] F32.0 STable on current meds, counseling [id number] Daniela William, PT Physical Therapy, [facility] [address] [place] [address] 04/11/2022 14:20:35 04/13/2022 07:35:53 Stiff neck [id number] M43.6 Patient is a 76-year old {{female m mark*}} who presents to physical therapy with c/o decreased cervical ROM. Physical examinatio n revealed decreased cervical ROM most limited in extension, decreased cervical and thoracic segmental mobility, hypertonic ity of the cervical and periscapul ar muscles bilaterall y,, and poor postural habits. Suspect decreased mobility is due to degenerati ve changes noted on x-ray performed in 2020.Patie nt has {{signific ant modera te* mild}} functional limitation in their {{activiti es of daily living* ac tivities of daily living and work capacity a ctivities of daily living and exercise capacity a ctivities of daily living and recreation }}. {{His* Her Their}} primary limitation s are with any activity requiring cervical extension or cervical rotation, such as looking over his shoulder while driving. Skilled physical therapy is indicated to safely and progressiv alta address impairment s and functional limitation s as outlined below. Patient is a {{good viki r* poor}} candidate for physical therapy due to active lifestyle, good support system, and motivation to actively participat e in {{his* her their}} plan of care.Patie nt Goals:1. Turn my head without limitation to improve my safety while driving. Clinical Goals:In 4-6 weeks, patient will:1. Demonstrat e symmetric pain free active motions of the {{cervical spine* upp er extremitie s shoulder elbow wri st lumbar spine lowe r extremitie s hip knee ankle}}.2 . Demonstrat e good postural habits.3. Demonstrat e independen ce with HEP for cervical mobility, postural re-educati on, and self care techniques to decrease risk of further loss of function. Treatment Plan: Patient to return for {{4 6 8 10 *}} visits over {{4 8 12*} } weeks. We expect significan t change in pain, impairment and function in this time frame.Clementine tment to Include: Continuing assessment , therapeuti c exercise, patient education, HEP (initiated ), manual therapy PRN, modalities PRN. [id number] Daniela William, PT Physical Therapy, [address] [address] 04/18/2022 14:29:47 04/19/2022 06:47:55 Stiff neck [id number] M43.6 [id number] Gretchen Schuster MD , [facility], [address] [place] [address] 04/20/2022 16:17:14 04/22/2022 13:21:48 Skin tag [id number] L91.8 Keep area clean and dry. [id number] Daniela William, PT Physical Therapy, [facility] [address] [place] [address] 04/25/2022 14:25:45 04/26/2022 10:47:19 Stiff neck 168834274 M43.6 [id number] Gretchen Schuster MD , [facility], [address] [place] [address] 05/10/2022 11:48:33 05/10/2022 12:42:36 Skin lesion 82090046 L98.9 Some chance of skin cancer like basal cell. These are slow growing and not harmful unless untreated for a long time. Discussed watchful waiting vs biopsy vs removal. Will schedule you for removal in 6 weeks [id number] Daniela William, PT Physical Therapy, [address] [address] 05/12/2022 14:55:54 05/13/2022 10:15:39 Stiff neck 375790420 M43.6 [id number] Daniela William, PT Physical Therapy, [address] [address] 05/19/2022 14:03:36 05/19/2022 19:02:18 Stiff neck 870038093 M43.6 [id number] Daniela William, PT Physical Therapy, [address] [address] 05/27/2022 15:01:44 05/28/2022 14:58:15 Stiff neck 596607296 M43.6 [id number] Daniela William, PT Physical Therapy, [address] [address] 06/02/2022 14:32:41 06/03/2022 12:36:16 Stiff neck 621023166 M43.6 [id number] Daniela William, PT Physical Therapy, [address] [address] 06/07/2022 14:02:18 06/07/2022 16:14:28 Stiff neck 784490762 M43.6 [id number] Daniela William, PT Physical Therapy, [address] [address] 06/14/2022 13:51:21 06/14/2022 15:12:20 Stiff neck 319261994 M43.6 [id number] Anita Villela, OD Eye Care, [address] [address] 06/28/2022 09:46:11 06/28/2022 10:35:09 Regular astigmatism 61448017 H52.223 no change in glasses Pseudophakia 84938695 Z9 6.1 clear OU. Posterior vitreous detachment 334121856 H43.813 floaters stable OU, retina intact OU, RTC FLOYD if increased floaters, flashes, or loss of vision occur. Excess skin of eyelid 24 3282089 H02.831 H02.834 mild to moderate dermatocha lasis OU, pt reports good vision and not bothersome to patient. continue to observe. Bilateral vitreous floaters 8875301348 66503 H43.357 [id number] Daniela William, PT Physical Therapy, [facility] [address] [place] [address] 06/29/2022 09:25:22 07/01/2022 09:17:07 Stiff neck 676540426 M43.6 [id number] Gretchen Schuster MD , [facility], [address] [place] [address] 07/12/2022 09:59:12 07/12/2022 10:34:28 Basal cell carcinoma of skin 067716530 C44.91 You are going back to get this removed. I can check your skin as well at your appointmen ts here [id number] Gretchen Schuster MD , [facility], [address] [place] [address] 08/26/2022 10:14:20 08/26/2022 13:36:16 Exposure to SARS-CoV-2 911525043 Z20.822 Pain in right arm 706165 004 M79.601 Normal exam, should resolve [id number] Gretchen Schuster MD , [facility], [address] [place] [address] 12/06/2022 10:43:41 12/06/2022 11:33:14 Pain in right arm 010402057 M79.601 I'm not sure what is causing this pain, but concerning that not improving Skin tag [id number] L91.8 Near R eye; this is benign. An opthamolog ist or plastic surgeon could take this off Skin lesion 81189489 L98 .9 Lets try steroid cream first; if not improving may need biopsy [id number] MD FRANCISCO Kline, [facility], [address] [place] [address] 12/12/2022 12:17:45 12/12/2022 13:35:52 Inguinal pain 011021356 R10.2 Reassuranc e. Let me know if comes back, changing [id number] Filiberto Rojas MD Sports Medicine, [facility] [address] [place] [address] 01/10/2023 14:28:48 01/17/2023 12:09:56 Hip pain 43145241 M25.552 Ed is a 77-year-ol d male with left inguinal pain that I believe is due to underlying osteoarthr itis versus a hip flexor strain. We discussed these potential causes of his symptoms today as well as discussing options for treatment. We discussed a referral to physical therapy which he declined with his symptoms improving. We also discussed potential x-ray imaging which we have also chosen to defer. I have advised the use of NSAIDs such as ibuprofen which may provide better relief of symptoms than Tylenol as well as as needed prior. As will plan to follow-up with me as needed for further care. If his symptoms are not continuing to improve over the next several weeks and having to have him contact me via the portal for an x-ray of his hip and referral to physical therapy [id number] Hiwot Salazar , [facility], [address] [place] [address] 03/24/2023 09:15:47 03/24/2023 09:55:03 Adult health examination 229442877 Z00.00 Consider getting a hearing test. Depression screening 171 026051 Z13.31 depression screening tool administer ed Screening for alcohol abuse 641617289 Z13.39 Alcohol use screening tool administer ed Major depr ession, melancholic type 418496788 F32.2 As per your psychiatri st and therapist Benign pro static hyperplasia 301174595 N40.0 You are followed regularly through Urology Basal cell carcinoma of skin 782281254 C44.91 Followed by [facility] [id number] Anita Villela, [facility], [address] [address] 07/04/2023 09:10:17 07/04/2023 10:07:38 Regular astigmatism 67097048 H52.223 Pseudophakia 13445734 Z9 6.1 clear OU. Posterior vitreous detachment 183798749 H43.813 floaters stable OU, retina intact OU, RTC FLOYD if increased floaters, flashes, or loss of vision occur. Excess skin of eyelid 24 1012230 H02.831 H02.834 mild to moderate dermatocha lasis OU, pt reports good vision and not bothersome .continue to observe. Bilateral vitreous floaters 2393245616 74000 H43.461 [id number] Amy Ag MD , [facility], [address] [place] [address] 07/25/2023 15:36:06 07/25/2023 16:47:59 COVID-19 701593683 U07.1 fever and mild cold sxdiscusse d sx mgmt and Paxlovidla st renal function was with GFR < 60 so will do renal dosing to be safeadvise d holding statin and not using sildenafil , for next ten days eachf/u any sob, high fevers not responding to tx, chest pain or confusion [id number] Amy Ag MD , [facility], [address] [place] [address] 08/25/2023 10:13:23 08/26/2023 10:50:42 Diastasis recti 26996951 M62.08 noted on examnot sxdeclines PT Strain of abdominal muscle 838764375 S39.011A noting soreness lower abd getting up mostlystar antoine after bowling season startedhe does recall some soreness last year after start of bowlingno hernia on examnoted separation of abd muscles on exam incidental ly, not painfulcou ld do PTdeclines for nowf/u as needed [id number] Gretchen Schuster MD , [facility], [address] [place] [address] 09/29/2023 10:09:19 09/29/2023 10:43:30 Hypothyroidism 59057553 E03.9 Recheck in 6 months Major depr ession, melancholic type 099761076 F32.2 As per your psychiatri st and therapist. Talked today about increasing exercise to help with this Elevated blood-pressure reading without diagnosis of hypertension 183645628 R03.0 Repeat was normal today. discussed weight control and exercise as helpful [id number] Tico Juarez DPT Physical Therapy, [facility] [address] 10/18/2023 13:47:01 10/20/2023 13:56:15 Low back pain 793917431 M54.51 [id number] Tico Juarez DPT Physical Therapy, [place] [address] 10/25/2023 09:20:48 10/27/2023 16:11:13 Low back pain 081767573 M54.51 [id number] Tico Juarez, KJ Physical Therapy, [place] [address] 11/01/2023 09:28:18 11/01/2023 10:27:01 Low back pain 143191538 M54.51 [id number] Tico Juarez DPT Physical Therapy, [address] [place] [address] 11/08/2023 10:01:43 11/08/2023 12:38:56 Low back pain 300393096 M54.51 [id number] Tico Juarez DPT Physical Therapy, [facility] [place] [address] 11/15/2023 09:52:12 11/15/2023 12:54:10 Low back pain 688703027 M54.51 [id number] Tico Juarez DPT Physical Therapy, [facility] [place] [address] 12/05/2023 09:28:12 12/05/2023 13:12:14 Low back pain 942565346 M54.51 [id number] Tico Juarez DPT Physical Therapy, [facility] [place] [address] 01/04/2024 09:34:58 01/04/2024 10:28:19 Low back pain 746237167 M54.51 [id number] Tico Juarez DPT Physical Therapy, [address] [place] [address] 01/11/2024 11:24:07 01/12/2024 12:51:59 Low back pain 449988198 M54.51 [id number] Nunu Lock NP , [facility], [address] [place] [address] 03/08/2024 13:37:56 03/18/2024 09:37:56 Cough 02267639 R05.9 Patient presents with cough.Like ly secondary to: mild URI vs allergies. Discussed supportive measures. Mucinex, ample fluids.Fol low up if not improving or with worsening symptoms. [id number] Gretchen Schuster MD , [facility], [address] [place] [address] 04/11/2024 09:18:14 04/11/2024 10:02:02 Adult health examination 744337122 Z00.00 Consider getting a hearing test. Covid booster in the fall with flu shot. Depression screening 171 835694 Z13.31 depression screening tool administer ed Screening for alcohol abuse 796219018 Z13.39 Alcohol use screening tool administer ed Major depr ession, melancholic type 762621662 F32.2 As per your psychiatri st and therapist. Talked today about increasing exercise to help with this Active or passive immunization 351948605 Z23 Bilateral hearing loss 89410261 H91.93 Please get an audiology appt to check how your hearing is Diastasis of muscle 1112 52725 M62.00 If painful, can get this repaired but it is a big surgery. [id number] Amy Ag MD , [facility], [address] [place] [address] 07/10/2024 09:46:24 07/10/2024 12:19:15 Impacted cerumen in left ear 0683270147 263352 H61.22 having audiology testleft ear is obstructed with dry wax partiallyi rrigation today [id number] Anita Villela, OD [facility], [address] [address] 07/09/2024 09:44:34 07/11/2024 08:52:14 Regular astigmatism 40383349 H52.223 Pseudophakia 83409307 Z9 6.1 Posterior vitreous detachment 098780926 H43.813 floaters stable OU, retina intact OU, RTC FLOYD if increased floaters, flashes, or loss of vision occur. Excess skin of eyelid 24 9665352 H02.831 H02.834 mild to moderate dermatocha lasis OU, pt reports good vision and not bothersome . continue to observe. Bilateral vitreous floaters 9664273983 20885 H43.393 mild OU. pt ed. recommend observatio n for now. 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 good IOP. Dry eyes 781900002 H04.1 23 by hx. tearing when outside in cold sometimes. try systane ultra 2-4 x per day for 3 weeks. if no improvemen t, may consider oph referral for dermatocha lasis, PCO, floaters. pt decided to observe for now. Secondary cataract 66302 4007 H26.40 mild inferiorly OD only. not visually significan t. pt ed. recommend observatio n. [id number] Gretchen Schuster MD , [facility], [address] [place] [address] 10/01/2024 09:49:57 10/02/2024 09:28:10 Bilateral hearing loss 64143369 H91.93 Going to ENT because of asymmetry; wearing hearing aids now Major depr ession, melancholic type 888888387 F32.2 As per your psychiatri st Dr. Hobson and therapist. Talked today about increasing exercise to help with this Basal cell carcinoma of skin 768117300 C44.91 Followed by [facility]; will request notes Eczema of external auditory canal 04431939 H60.549 Itchy EarsChroni c issue, exacerbate d by hearing aids.-Use hydrocorti sone cream for one week when itching is severe, then give it a break to avoid skin damage.-Co nsider using zinc oxide cream (Desitin) as a barrier to hold in moisture and seal the skin. Health Concerns Section Related Observation LastModified by Organization Detai ls LastModified Time None Recorded Concern Status LastModified by Organization Details LastModified Time None Recorded Advance Directives Directive Y: Payers Encounter Date Sequence Insurance Name Policy Number Policy Chávez Covered Member ID Chávez Member ID Guarantor Name 03/08/2024 1 [place] [employer] Edward W Orzechoveliaki [id number] Edward Orjbchoveliaki 03/08/2024 2 [facility] (MEDICARE SUPPLEMENT) Edward W Abhilash [id number] Edward Orzechowski 04/11/2024 1 [place]: [facility] Edward W Orzechoveliaki [id number] Edward Orzechoveliaki 04/11/2024 2 [facility] (MEDICARE SUPPLEMENT) Edward W Orzechoveliaki [id number] Edward Orzechoveliaki 07/09/2024 1 [place] [facility] Edward W Orjbchoveliaki [id number] 90 Edward Orzechoveliaki 07/09/2024 2 [facility] (MEDICARE SUPPLEMENT) Edward W Abhilash [id number] Edward Orzechotiffanie 07/10/2024 1 [place] [facility] Edward W Orjbchoveliaki [id number] 90 Edward Orzechoveliaki 07/10/2024 2 [facility] (MEDICARE SUPPLEMENT) Edward W Ortrent [id number] Edward Orzechotiffanie 10/01/2024 1 [place] [facility] Edward W Orjbchoveliaki [id number] 90 Edward Orzechoveliaki 10/01/2024 2 [facility] (MEDICARE SUPPLEMENT) Edward W Abhilash [id number] 00 Edward Ortrent Notes Date Note Type Note Provider Name and Address Organization Details Recorded Time 03/08/2024 text/html Cough epReported bypatient.SymptomsOTC meds include: claritin;cough;sore throat; home COVID test neg Pt presents for cough/wheezingStarted monday with scratchy throat, developed into deep cough. Feels a little better today.Tested for covid Monday and today, both negativeHas been taking claritin to treat; reports that it has not relieved sx Nunu Lock NP [address] [place] [address], [place], [address], [facility] 03/08/2024 14:06:36 04/11/2024 text/html Physical Exam/MaleReported bypatient.Notes:As aboveRisk Assessment and Lifestyle Change Counseling (Medicare)Reported bypatient.Safety Risk Assessment:Has grab bars in bathroom; Has rails on steps; No falls; No evidence of abuse/neglect; Do you feel safe in your current relationship?YES; Have you ever been a victim of physical/emotional/se xual abuse?NO Functional Status:Patient has trouble hearing the television or radio when others do not.;Patient has to strain or struggle to hear/understand conversations.; Patient does not need help with preparing meals, transportation, shopping, taking medicine, managing finances, or other activities of daily living.; Patient does not have visual loss that interferes with daily activities; Does not live alone; Patient was not unsteady and did not take longer than 30 seconds during the timed get up and go test.; Patient reports no falls in the past 6 months. Diet:Counseled about appropriate portion size Exercise counseling:Discussed the importance of daily physical activity Pt presents for wv - ended PT, had been seeing for doming of stomach- concerns re hearing, nida w/ ambient noise Due for td vax todayColonoscopy due 2025 - noteAs above; doing well Gretchen Schuster MD [address] [place] [address], [phone], [facility] 04/11/2024 16:20:25 07/09/2024 text/html c/o floaters, OU , mild, intermittent, maybe more often, no flashes. Anita Villela, [facility] [address] [place], [address], [facility] 07/09/2024 16:06:56 07/10/2024 text/html having hearing testears aren't bothering himjust some hearing issues, has had previous testing, notes some higher frequency loss, loses consonants sometimes, uses closed captioninggoing to get the hearing aidesno pain or drainage in earsjust wants to make sure clear of wax Amy Ag MD [address] [place], [address], [facility] 07/10/2024 10:22:30 10/01/2024 text/html Patient informed and consents to use of AI assisted recording to improve documentation of visit History of Present IllnessThe patient presents for a follow-up visit. He has been fitted with hearing aids since the last visit. Initially, he experienced discomfort due to improper fitting of one of the cuffs, which felt like having a finger stuck in his ear. This issue has been resolved, and he is now adjusting well to the hearing aids. His hearing is asymmetrical, and he has an ENT appointment scheduled in December for further evaluation. He has a history of itchy ears, particularly in the area where the hearing aids are placed. He has used hydrocortisone cream for relief but is concerned about potential skin damage with continuous use. Regarding his mental health, he continues to see a psychiatrist every three to four months and a therapist once a month. He states that his depression does not interfere with his daily life, although he experiences intermittent episodes. He recalls a past dermatology appointment where he was treated for basal cell carcinoma and has a follow-up appointment scheduled with the medical office coordinator. Gretchen Schuster MD [address] [place] [address], [phone], [facility] 10/01/2024 13:36:52
== END 2025-01-09 11:01 | disposition home or self-care (01) ==
PROVIDERS: PCP Family Medicine; Visit Provider Psychiatry & Neurology Psychiatry
DX: F33.42 Major depressive disorder, recurrent, in full remission (principal)
CPT/HCPCS: 99214

== ENCOUNTER → 2025-01-09 10:25 | Outpatient (BNVA) | payer MEDICARE, OTHER, SELFPAY | PROVIDERS: PCP Family Medicine; Visit Provider Psychiatry & Neurology Psychiatry | DX: F33.42 Major depressive disorder, recurrent, in full remission (principal) | CPT/HCPCS: 99212 ==

== ENCOUNTER 2025-04-17 12:03 | Outpatient (AMB) | payer MEDICARE, OTHER, SELFPAY ==
--- OUTSIDE RECORDS SUMMARY | 2025-04-17 12:33 | XMS_ITS | Encounter Summary ---
Author Organization [facility] Address [address] [place] [address] Phone Care Team Providers Care Saddle Tree Stitcher Name Role Phone Gertchen Schuster MD Primary Care Provider [phone]- [phone] Encounter Details Date Type Department Care Team (Latest Contact Info) Description 02/21/2025 Transcribe Orders Virtual Department 30 [place] [address] Amy Eldridge MD [address] [place] [address] [email or web address] Dizziness and giddiness (Primary Dx); Vision loss; Asymmetrical hearing loss Social History Tobacco Use Types Packs/Day Years Used Date Smoking Tobacco: Never Smokeless Tobacco: Never Alcohol Use Standard Drinks/Week Comments Yes 0 (1 standard drink = 0.6 oz pur e alcohol) Education Answer Date Recorded Are you interested in more education? Not on evon e 01/13/2023 Are you concerned about learning? Not on file 01/13/2023 No 01/13/2023 No 01/13/2023 Food Answer Date Recorded Within the past 6 months we worried whether our food would run out before we got money to buy more. Never True 02/22/2025 Within the past 6 months the food we bought just didn't last and we didn't have enough money to get more. Never True Residential Stability Answer Date Recor ded What is your housing situation today? I have marva villa 02/22/2025 How many times have you move d in the past 12 months? Zero (I did not move) 02/22/2025 Paying for Meds Answer Date Recorded Do you have trouble paying for medicines? No 02/22/2025 Paying Utility Bills Answer Date Record ed Do you have trouble paying your heating or elect ricity bill? No 02/22/2025 Transportation Answer Date Recorded Has the lack of transportati on kept you from medical appointments or from getting medications? No 02/22/2025 Digital Access Answer Date Recorded No 02/22/2025 Yes 02/22/2025 Do you have reliable internet access at home? Ye s 02/22/2025 Do you have a device (e.g., phone, tablet, computer) with a working camera? Yes 02/22/2025 Intimate Partner Violence Answer Date R ecorded Are you denied basic needs s uch as food, clothing, or medical care? No 02/24/2025 In the past 12 months have y ou been in a relationship with a person who hurts, threatens, or tries to control you? No 02/24/2025 Are you denied basic needs s uch as food, clothing, or medical care? No 02/24/2025 In the past 12 months have y ou been in a relationship with a person who hurts, threatens, or tries to control you? No 02/24/2025 Sex and Gender Information Value Date Recorded Sex Assigned at Male 02/10/2025 6:23 PM EDT Legal Sex Male 10:08 PM EDT Gender Identity Male 02/10/2025 6:23 PM EDT Sexual Orientation Not on file documented as of this encounter Functional Status * Calculated C-SSRS Risk Score (Lifetime/Recent) Answer Date of Assessment Author No Risk Indicated 02/24/2025 7:15 PM EDT Gisselle Calabrese RN * [place] Suicide Severity Rating Scale (Screener/Recent Self-Report) Question Answer Date of Assessment Author 1. Wish to be (Past 1 Month) No 02/24/2025 7:15 PM EDT Gisselle Calabrese RN 2. Non-Specific Active Suicidal Thoughts (Past 1 Month) No 02/24/2025 7:15 PM EDT Gisselle Calabrese RN 6. Suicidal Behavior (Lifetime) No 02/24/2025 7:15 PM EDT Gisselle Calabrese RN documented as of this encounter Plan of Treatment Upcoming Encounters Date Type Department Care Team (Late st Contact Info) Description 09/08/2025 2:00 PM EST Office Visit [facility] Neurology [address] [place] [address] Brandon Cordoba MD [address] [place] [address], 2nd [place] [address] [email or web address] documented as of this encounter Visit Diagnoses Diagnosis Dizziness and giddiness- Primary Vision loss Unspecified visual loss Asymmetrical hearing loss Unspecified hearing loss documented in this encounter Care Teams Saddle Tree Stitcher Relationship Specialty Start Date End Date Gretchen Schuster MD [address] [place] [id number] [email or web address] PCP - General Family Medicine 02/09/25 documented as of this encounter Additional Source Comments The information contained in this document represents components of the legal health record. It is not the complete legal health record.[facility]
--- NOTE | 2025-04-17 12:42 | MHC.OFFVISPS ---
Intake Intake Visit Reasons: depression HPI- Psychiatric Chief Complaint: depression HPI Narrative: Patient seen psychiatric follow-up. Patient had event when he was doing public speaking he felt like he was passing out and that he lost eyesight temporarily number sec patient has been to the emergency room there was no gross changes no noted concerns on CT scan no arrhythmia noted. Patient temporarily given lorazepam 0.5 mg has been having intermittently some difficult to describe symptoms where he feels suddenly altered they might need to pass out Past Psychiatric History: Past history of depression anxiety was a patient Dr. Paez Mental Status Exam Mental Status Exam Narrative: Mental Status Exam Narrative: Appearance: Casually dressed Behavior: Cooperative appropriate psychomotor: Within normal limits Speech: Normal volume and prosody Thought proccess logical and goal-directed Thought content: Future oriented focused on tx recent symptoms and concerns Mood: Doing okay some anxiety noted Affect: Appropriate to mood SI:denies HI:denies VH/AH:none Delusions: None Insight/judgment: Good insight and judgment Memory/cog: Intact Assessment and Plan Assessment & Plan (1) Dysthymia: Status: Acute Code(s): F34.1 - Dysthymic disorder (2) Anxiety disorder: Status: Acute Code(s): F41.9 - Anxiety disorder, unspecified Plan Discussed risks benefits side effects and alternatives sertraline low-dose to help block panic attacks extensive discussion regarding diagnosis ways to manage symptoms lorazepam daily PRN continue Wellbutrin discussed avoidance of alcohol with lorazepam Medications: New sertraline 25 - 50 mg (0.5 - 1 x 50 mg) PO DAILY 30 tabs 1RF Refilled lorazepam 0.5 mg PO DAILY PRN 14 tabs 1RF anxiety 30 days Counseling and coordination of Care Pt. Self Management counseling: Cognitive restructuring Medication management counseling: Effectiveness, Side effects and Dosing range Diagnosis and Prognosis Counseling: Accuracy of diagnosis and Problematic behaviors secondary to diagnosis Details-Diagnosis/Prognosis counseling: Discussed non medication ways to manage panic and anxiety Details: I spent [] minutes reviewing the record, seeing the patient and documenting in the medical record. Counseling provided to the patient/caregiver as outlined below. Addressed patient/caregiver concerns regarding current medication regime including effective adherence. Addressed patient/caregiver concerns regarding diagnosis and prognosis including accuracy of diagnosis, prognosis over time, impact of diagnosis. Addressed patient/caregiver concerns regarding impact of recent stressors. [facility] Medical History (Updated 05/11/25 @ 21:52 by Rafa Hobson MD) Major depression, recurrent, full remission Social History: Patient has 2 children. 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 Family history of bipolar disorder and depression patient had social anxieties child Substance History: none Trauma History: Both parents were alcoholics Coding Level of Care Code Est Pt Level 3 (14943) Therapy 30m w/E&M (04358) Diagnoses Dysthymia F34.1 Anxiety disorder F41.9
== END 2025-04-17 12:41 | disposition home or self-care (01) ==
LOC: HO.HOP 12:03
PROVIDERS: PCP Family Medicine; Visit Provider Psychiatry & Neurology Psychiatry
DX: F34.1 Dysthymic disorder (principal); F41.9 Anxiety disorder, unspecified
CPT/HCPCS: 90833; 99213

== ENCOUNTER → 2025-04-17 12:03 | Outpatient (BNVA) | payer MEDICARE, OTHER, SELFPAY | PROVIDERS: PCP Family Medicine; Visit Provider Psychiatry & Neurology Psychiatry | DX: F41.9 Anxiety disorder, unspecified (principal); F34.1 Dysthymic disorder | CPT/HCPCS: 99212 ==

== ENCOUNTER 2025-05-01 15:30 | Outpatient (AMB) | payer MEDICARE, OTHER, SELFPAY ==
--- NOTE | 2025-05-01 14:12 | MHC.OFFVISPS ---
Intake Intake Visit Reasons: anxiety, depression Medication List - Last Reconciled 05/01/25 by Rafa Hobson MD bupropion HCl SR (Wellbutrin SR) 100 mg PO DAILY 30 days escitalopram oxalate 5 mg PO DAILY finasteride 5 mg PO DAILY levothyroxine 137 mcg PO DAILY lorazepam 0.5 mg PO DAILY PRN 30 days lovastatin 20 mg PO DAILY sildenafil 50 mg PO DAILY PRN HPI- Psychiatric Chief Complaint: anxiety, depression HPI Narrative: Patient is medical workup generally has been negative cardiac in neurologically. decreased panic and transient use of lorazepam up to b.i.d. was very helpful when he was traveling. Patient did feel more anxiety on sertraline even on 25 mg and that was discontinued. Patient will be following up with Neurology in his primary care he does seem to have started to regain some degree of confidence Past Psychiatric History: Past history of depression anxiety was a patient Dr. Paez Telehealth Telehealth Telehealth Platform: [facility] Location of provider rendering services: practice address Location of patient: address on file Patient Identification confirmed using: Name, : Yes Telehealth method: video Patient verbally consented to treatment: Yes Minutes spent on Phone/Video with Pt.: 25 Assessment and Plan Assessment & Plan (1) Anxiety disorder: Status: Acute Code(s): F41.9 - Anxiety disorder, unspecified (2) Dysthymia: Status: Acute Code(s): F34.1 - Dysthymic disorder Plan Patient did not tolerate sertraline discussed use of low-dose escitalopram for help with anxiety limited symptom panic that generally he is not sufficiently treated by bupropion alone. Continue bupropion and lorazepam PRN follow-up 2-4 weeks Medications: New escitalopram oxalate 5 mg PO DAILY 30 tabs 2RF Refilled lorazepam 0.5 mg PO DAILY PRN 20 tabs 1RF anxiety 30 days Discontinued sertraline Discontinued Reason: Doctor's Order 25 - 50 mg (0.5 - 1 x 50 mg) PO DAILY 30 tabs 1RF Counseling and coordination of Care Details-Self Mgmt counseling: Issues related to managing anxiety Medication management counseling: Effectiveness, Side effects and Dosing range Diagnosis and Prognosis Counseling: Adequacy of current interventions Details: I spent [] minutes reviewing the record, seeing the patient and documenting in the medical record. Counseling provided to the patient/caregiver as outlined below. Addressed patient/caregiver concerns regarding current medication regime including effective adherence. Addressed patient/caregiver concerns regarding diagnosis and prognosis including accuracy of diagnosis, prognosis over time, impact of diagnosis. Addressed patient/caregiver concerns regarding impact of recent stressors. [facility] Medical History (Updated 05/11/25 @ 21:52 by Rafa Hobson MD) Major depression, recurrent, full remission Social History: Patient has 2 children. 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 Family history of bipolar disorder and depression patient had social anxieties child Substance History: none Trauma History: Both parents were alcoholics Coding Level of Care Code Est Pt Level 4 (52940) Diagnoses Anxiety disorder F41.9 Dysthymia F34.1
--- OUTSIDE RECORDS SUMMARY | 2025-05-01 15:52 | XMS_ITS | Encounter Summary ---
Author Organization [facility] Address [address] [place] [address] Phone Care Team Providers Care Cabin Crew Name Role Phone Gretchen Schuster MD Primary Care Provider [phone] Encounter Details Date Type Department Care Team (Latest Contact Info) Description 02/21/2025 Transcribe Orders Virtual Department 30 [place] [address] Amy Eldridge MD [address] [place] [address] [email or web address] Dizziness and giddiness (Primary Dx); Vision [...] 7:15 PM EDT Gisselle Calabrese RN * [place] Suicide Severity Rating Scale (Screener/Recent Self-Report) Question [...] Description 09/08/2025 2:00 PM EST Office Visit [facility] Neurology [address] [place] [address] Brandon Cordoba MD [address] [place] [address], 2nd [place] [address] [email or web address] documented as of this encounter Visit Diagnoses Diagnosis Dizziness and giddiness- Primary Vision loss Unspecified visual loss Asymmetrical hearing loss Unspecified hearing loss documented in this encounter Care Teams Cabin Crew Relationship Specialty Start Date End Date Gretchen Schuster MD [address] [place] [phone] [email or web address] PCP - General Family Medicine 02/09/25 documented as of this encounter Additional Source Comments The information contained in this document represents components of the legal health record. It is not the complete legal health record.[facility]
== END 2025-05-01 16:22 | disposition home or self-care (01) ==
LOC: HO.HOP 15:30
PROVIDERS: PCP Family Medicine; Visit Provider Psychiatry & Neurology Psychiatry
DX: F41.9 Anxiety disorder, unspecified (principal); F34.1 Dysthymic disorder
CPT/HCPCS: 99214

== ENCOUNTER → 2025-05-01 15:30 | Outpatient (BNVA) | payer MEDICARE, OTHER, SELFPAY | PROVIDERS: PCP Family Medicine; Visit Provider Psychiatry & Neurology Psychiatry | DX: F41.9 Anxiety disorder, unspecified (principal); F34.1 Dysthymic disorder | CPT/HCPCS: 99212 ==

== ENCOUNTER 2025-05-22 10:31 | Outpatient (AMB) | payer MEDICARE, OTHER, SELFPAY ==
--- NOTE | 2025-05-22 10:51 | A.OFFPSYCH_ITS ---
Intake Intake Visit Reasons: depression HPI- Psychiatric Chief Complaint: depression HPI Narrative: Pt seen in f/u cont to have balance problems uses walking poles in PT .Mood has been more stable some anxiety no severe anxiety attacks . Phq 9 and hitesh are unremarkable. Past Psychiatric History: Past history of depression anxiety was a patient Dr. Paez Mental Status Exam Mental Status Exam Narrative: Mental Status Exam Narrative: Appearance: Casually dressed Behavior: Cooperative appropriate psychomotor: Within normal limits Speech: Normal volume and prosody Thought proccess logical and goal-directed Thought content: Future oriented focused on tx recent symptoms and concerns Mood: ok Affect: Appropriate to mood SI:denies HI:denies VH/AH:none Delusions: None Insight/judgment: Good insight and judgment Memory/cog: Intact Assessment and Plan Assessment & Plan (1) Major depression, recurrent, full remission: Status: Acute Code(s): F33.42 - Major depressive disorder, recurrent, in full remission (2) Anxiety disorder: Status: Acute Code(s): F41.9 - Anxiety disorder, unspecified Plan cont higher dose wellbutrin 150 mg escitalopram discontinued Pt has techniques to manage emotional anxiety sx medical work up has been neg to this point Medications: New bupropion HCl XL 150 mg PO QAM 90 tabs 1RF Discontinued bupropion HCl SR Discontinued Reason: Duplicate 100 mg PO DAILY 30 days 30 tabs 1RF escitalopram oxalate Discontinued Reason: Doctor's Order 5 mg PO DAILY 30 tabs 2RF Counseling and coordination of Care Details-Self Mgmt counseling: ways to manage anxiety sx Medication management counseling: Effectiveness, Side effects and Dosing range Diagnosis and Prognosis Counseling: Adequacy of current interventions Details-Diagnosis/Prognosis counseling: monitor response to wellbutrin ? need for ssri Details: I spent [30] minutes reviewing the record, seeing the patient and documenting in the medical record. Counseling provided to the patient/caregiver as outlined below. Addressed patient/caregiver concerns regarding current medication regime including effective adherence. Addressed patient/caregiver concerns regarding diagnosis and prognosis including accuracy of diagnosis, prognosis over time, impact of diagnosis. Addressed patient/caregiver concerns regarding impact of recent stressors. [facility] Medical History (Updated 05/11/25 @ 21:52 by Rafa Hobson MD) Major depression, recurrent, full remission Social History: Patient has 2 children. 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 Family history of bipolar disorder and depression patient had social anxieties child Substance History: none Trauma History: Both parents were alcoholics Coding Level of Care Code Est Pt Level 4 (42129) Diagnoses Major depression, recurrent, full remission F33.42 Anxiety disorder F41.9
--- OUTSIDE RECORDS SUMMARY | 2025-05-22 11:53 | XMS_ITS | Encounter Summary ---
Author Organization [facility] Address [address] [place] [address] Phone Care Team Providers Care Tipple Supervisor Name Role Phone Marco Dooley MD Primary Care Provider [phone] Gretchen Schuster MD Primary Care Provider [phone] Encounter Details Date Type Department Care Team (Latest Contact Info) Description 03/08/2018 Transcribe Orders [facility] [address]nd [place] [address] Bre Marcano PA [address] [phone] [email or web address] Enlarged prostate with urinary obstruction (Primary Dx) Social History Tobacco Use Types Packs/Day Years Used Date Smoking Tobacco: Never Smokeless Tobacco: Never Alcohol Use Standard Drinks/Week Comments Yes 0 (1 standard drink = 0.6 oz pur e alcohol) Sex and Gender Information Value Date Recorded Sex Assigned at Male 02/10/2025 6:23 PM EDT Legal Sex Male 10:08 PM EDT Gender Identity Male 02/10/2025 6:23 PM EDT Sexual Orientation Not on file documented as of this encounter Plan of Treatment Upcoming Encounters Date Type Department Care Team (Late st Contact Info) Description 09/08/2025 2:00 PM EST Office Visit [facility] Neurology [address] [place] [address] Brandon Cordoba MD 22 [facility], [address] [place] [address], [place] [address] [email or web address] documented as of this encounter Results * PSA (screening) (03/08/2018 10:02 AM EDT) PSA 1.32 0 - 4.00 ng/mL [facility] Blood 03/08/2018 10:0 2 AM EDT 03/08/2018 10:05 AM EDT us Bre [facility] BLOOD ORDERABLES Final Result [facility] [address] [place] [address] documented in this encounter Visit Diagnoses Diagnosis Enlarged prostate with urinary obstruction- Primary Hypertrophy of prostate with urinary obstruction and other lower urinary tract symptoms (LUTS) documented in this encounter Care Teams Tipple Supervisor Relationship Specialty Start Date End Date Marco Dooley MD [address] [phone] [email or web address] PCP - General 07/16/17 02/08/25 Gretchen Schuster MD 70 [place] [address] [email or web address] PCP - General Family Medicine 02/09/25 documented as of this encounter Additional Source Comments The information contained in this document represents components of the legal health record. It is not the complete legal health record.[facility]
--- OUTSIDE RECORDS SUMMARY | 2025-05-22 11:53 | XMS_ITS | Encounter Summary ---
Author Organization [facility] Address [address] [place] [address] Phone Care Team Providers Care Boat Hand Name Role Phone Gretchen Schuster MD Primary Care Provider [phone]- [phone] Encounter Details Date Type Department Care Team (Latest Contact Info) Description 02/21/2025 Transcribe Orders Virtual Department 30 [place] [address] Amy Eldridge MD [address] [place] [address] [email or web address] Dizziness and giddiness (Primary Dx); Vision [...] 7:15 PM EDT Gisselle Calabrese RN * [place] Suicide Severity Rating Scale (Screener/Recent Self-Report) Question [...] Description 09/08/2025 2:00 PM EST Office Visit [facility] Neurology [address] [place] [address] Brandon Cordoba MD [address] [place] [address], 2nd [place] [address] [email or web address] documented as of this encounter Visit Diagnoses Diagnosis Dizziness and giddiness- Primary Vision loss Unspecified visual loss Asymmetrical hearing loss Unspecified hearing loss documented in this encounter Care Teams Boat Hand Relationship Specialty Start Date End Date Gretchen Schuster MD [address] [place] [phone] [email or web address] PCP - General Family Medicine 02/09/25 documented as of this encounter Additional Source Comments The information contained in this document represents components of the legal health record. It is not the complete legal health record.[facility]
--- OUTSIDE RECORDS SUMMARY | 2025-05-22 11:53 | XMS_ITS | Encounter Summary ---
Author Organization [facility] Address [address] [place] [address] Phone Care Team Providers Care Glass Etcher Name Role Phone Gretchen Schuster MD Primary Care Provider [phone]- [phone] Encounter Details Date Type Department Care Team (Late st Contact Info) Description 02/25/2025 Procedure Pass [facility], Ct Scan - [address] [address] Social History Tobacco Use Types Packs/Day Years [...] got money to buy more. Never True 02/26/2025 Within the past 6 months the food we bought just didn't last and we didn't have enough money to get more. Never True Residential Stability Answer Date Recor ded What is your housing situation today? I have marva sing 02/26/2025 How many times have you move d in the past 12 months? Zero (I did not move) 02/26/2025 Paying for Meds Answer Date Recorded Do you have trouble paying for medicines? No 02/26/2025 Paying Utility Bills Answer Date Record ed Do you have trouble paying your heating or elect ricity bill? No 02/26/2025 Transportation Answer Date Recorded Has the lack of transportati on kept you from medical appointments or from getting medications? No 02/26/2025 Digital Access Answer Date Recorded No 02/26/2025 Yes 02/26/2025 Do you have reliable internet access at home? Ye s 02/26/2025 Do you have a device (e.g., phone, tablet, computer) with a working camera? Yes 02/26/2025 Intimate Partner Violence Answer Date R ecorded Are you denied basic needs s uch as food, clothing, or medical care? No 02/26/2025 In the past 12 months have y ou been in a relationship with a person who hurts, threatens, or tries to control you? No 02/26/2025 Are you denied basic needs s uch as food, clothing, or medical care? No 02/26/2025 In the past 12 months have y ou been in a relationship with a person who hurts, threatens, or tries to control you? No 02/26/2025 Sex and Gender Information Value Date Recorded Sex Assigned at Male 02/10/2025 6:23 PM EDT Legal Sex Male 10:08 PM EDT Gender Identity Male 02/10/2025 6:23 PM EDT Sexual Orientation Not on file documented as of this encounter Functional Status * Calculated C-SSRS Risk Score (Lifetime/Recent) Answer Date of Assessment Author No Risk Indicated 02/26/2025 2:04 PM EDT Pau Sharma RN * [place] Suicide Severity Rating Scale (Screener/Recent Self-Report) Question Answer Date of Assessment Author 1. Wish to be (Past 1 Month) No 025 2:04 PM EDT Pau Dover, CHRISTOPHER 2. Non-Specific Active Suici trey Thoughts (Past 1 Month) No 02/26/2025 2:04 PM EDT Shanel Dover, CHRISTOPHER 6. Suicidal Behavior (Lifetime) No 5 2:04 PM EDT Pau Dover, CHRISTOPHER documented as of this encounter Plan of Treatment Upcoming Encounters Date Type Department Care Team (Late st Contact Info) Description 09/08/2025 2:00 PM EST Office Visit [facility] [place] [address] Brandon Cordoba MD 22 [facility], 2nd [place] [address] [email or web address] documented as of this encounter Visit Diagnoses Not on filedocumented in this encounter Care Teams Glass Etcher Relationship Specialty Start Date End Date Gretchen Schuster MD [address] [place] [address] [email or web address] PCP - General Family Medicine 02/09/25 documented as of this encounter Additional Source Comments The information contained in this document represents components of the legal health record. It is not the complete legal health record.[facility]
--- OUTSIDE RECORDS SUMMARY | 2025-05-22 11:53 | XMS_ITS | Encounter Summary ---
Author Organization [facility] Address [address] [place] [address] Phone Care Team Providers Care Development Vice President Name Role Phone Gretchen Schuster MD Primary Care Provider [phone] Reason for Visit * Reason Onset Date Comments methods specialist Call Back 05/12/2025 MRI Results ? Encounter Details Date Type Department Care Team (Late st Contact Info) Description [facility]/12[facility] [address] [place] [address] Brandon Cordoba MD [address] [facility], [address]nd [place] [address] [email or web address] methods specialist Call Back (MRI Results?) Social History Tobacco Use Types Packs/Day Years [...] housing situation today? I have marva villa 02/26/2025 How many times have you move [...] on file documented as of this encounter Progress Notes * Brandon Cordoba MD - 05/19/2025 9:02 PM EDT Please let Mr. Guzman know that I received/reviewed his C-Spine MRI report. 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 If he is having any neck pain, then we might have our Spine Medicine specialist Dr. Quinn weigh in, but I do not think this MRI shows any culprit for his dizzy spells. 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 No abnormal signal within the cervical cord. * Kaylie Garcia - 05/12/2025 12:18 PM EDT Edward calls again stating that [facility] tells him they have already sent the results to Dr Cordoba on05/03/25. * Kaylie Garcia - 05/12/2025 12:06 PM EDT Edward calls to ask if we have received his MRI Cervical Spine results from [facility] in [facility], and if Dr Cordoba could contact him back with his advice. documented in this encounter Plan of Treatment Upcoming Encounters Date Type Department Care Team (Late st Contact Info) Description 09/08/2025 2:00 PM EST Office Visit [facility] Neurology [address] [place] [address] [place] [address] Brandon Cordoba MD [address] [place] [address], [address]nd [place] [address] documented as of this encounter Visit Diagnoses Not on filedocumented in this encounter Care Teams Development Vice President Relationship Specialty Start Date End Date Gretchen Schuster MD [address] [place] [phone] PCP - General Family Medicine 02/09/25 documented as of this encounter Additional Source Comments The information contained in this document represents components of the legal health record. It is not the complete legal health record.[facility]
--- OUTSIDE RECORDS SUMMARY | 2025-05-22 11:53 | XMS_ITS | Encounter Summary ---
Author Organization [facility] Address [address] [place] [address] Phone Care Team Providers Care [employer] Computer Science Teacher Name Role Phone Gretchen Schuster MD Primary Care Provider [phone]- [phone] Reason for Referral * Outpatient Procedure - Closed Specialty Diagnoses / Procedures Referred By Mary Jane leavitt Referred To Contact Diagnoses Transient cerebral ischemia, unspecified type Procedures Adult Echo TTE Gretchen Schuster MD [address] [place] [address] Phone: tel: fax: [email or web address] Referral ID Status Reason Start Date Expiration Date Visits Re quested Visits Authorized [id number] Closed 02/28/2025 02/28/2026 1 1 Encounter Details Date Type Department Care Team (Late st Contact Info) Description 02/28/2025 Transcribe Orders Virtual Department [address] [place] [address] Brenda Valle [place] [email or web address] Transient cerebral ischemia, unspecified type (Primary Dx) Social History Tobacco Use Types [...] 09/08/2025 2:00 PM EST Office Visit [facility] Neurology [address] [place] [address] Brandon Cordoba MD [address] [facility], 2nd [place] [address] [email or web address] documented as of this encounter Results * TTE COMPREHENSIVE (02/28/2025 2:52 PM EDT) Body Surface Area 2.09 m2 Height 180 cm Weight 88 kg Systolic BP 167 mmHg Diastolic BP 95 mmHg Interventricular Septum Thickness 11 6 - 11 mm Left Ventricle Internal Diameter End Diastole 43 42 - 58 mm Left Ventricle Internal Diameter End Systole 29 <40 mm Left Ventricular Outflow Tract Diameter 21.0 mm LVOT VTI REST 161.0 mm Left Ventricular Outflow Tract Velocity 0.8 m/s Left Ventricular Outflow Tract Gradient at Rest 3 mmHg Left Ventricular Posterior Wall Thickness 11 6 - 11 mm Left Ventricle Ea Lateral Wave Speed 5.6 cm/s Left Ventricle Ea Septal Wave Speed 4.8 cm/s Ejection Fraction 54 50 - 75 Percent Aortic Valve Mean Gradient 3 mmHg Aortic Valve Time Velocity Integral 235.0 mm Aortic Valve Peak Velocity 1.3 m/s Aortic Valve Peak Gradient 6 mmHg Aortic Arch Diameter 15 mm Aortic Sinus Diameter 31 <40 mm Left Ventricle A Wave Speed 93.1 cm/s Left Ventricle E Wave Speed 62.1 cm/s Mitral Valve Mean Gradient 2 mmHg Mitral Valve Peak Gradient 5 mmHg Mitral Valve Area Continuity Equation 2.60 cm2 Pulmonary Valve Peak Velocity 0.7 m/s Pulmonary Valve Peak Gradient 2 mmHg Tricuspid Valve Peak Velocity 2.2 m/s Raw LV EF% 55 % MV E/E' Tissue Velocity Lateral 11.09 Relative Wall Thickness 0.51 0.22 - 0.42 Left Ventricle indexed to BSA 78.0 g/m2 MV E/A ratio 0.7 MV E/e' septal 12.94 Left Ventricle E/e' Average 12.0 Aortic Valve Prosthetic Peak Gradient 6 mmHg Aortic Valve Sinus Index by BSA 15 mm/m2 Aorta Sinus Index by Height 1.72 cm/m Aorta Sinus CSA index by Height 4.19 cm2/m Mitral Valve Prosthetic Peak Gradient 5 mmHg Mitral Valve Prosthetic Mean Gradient 2 mmHg Right Ventricle to Right Atrium Pressure Gradient 19 mmHg Right Ventricle Peak Systolic Pressure (Assuming RAP 10) 29 mmHg [facility] CV ECHO TV RVSP (ASSUMING RAP OF 5) 24 mmHg RVSP (Exclusive of RAP) 19 mmHg Pulmonic Valve Prosthetic Peak Gradient 2 mmHg MGB CV AV DIMENSIONLESS INDEX (PEAK) - STRESS ECHO DOBUT - REST 0.62 Aortic Sinus Index 15 mm Aortic Valve Sinus Index 1 15 20 - 32 mm Echo E/Ea 12.94 GLS 14.8 % Left Atrial Volume Index 13 16 - 34 mL/m2 Right Ventricle TAPSE 17 >=17 mm Right Ventricle Pulse Doppler S Wave 10.4 >=9.5 cm/s Left Atrial Volume 27 mL Left Atrial Volume Index by Height 15 mL/m Aortic Valve Prosthetic Mean Gradient 3 mmHg Anatomical Region Laterality Modality Heart Ultrasound Narrative 03/01/2025 8:52 AM EDT Images from the original result were not included. 1. The indication is TIA. This patient was imaged during normal sinus rhythm. The estimated ejection fraction is 50 to 55%. The strain on the study is -14.8% which is mildly decreased. Diastolic function is normal there is no obvious concentric LVH or regional wall motion abnormality. 2. Normal RV size and function. 3. Trileaflet aortic valve there is no evidence of aortic stenosis, the ascending aortic root was poorly visualized. 4. Trace mitral and trace tricuspid insufficiency, the PA pressure is normal on the study. 5. Normal pericardium and no prior echo available for comparison. Left Ventricle The left ventricle is normal in size. There is discrete upper septal hypertrophy. Left ventricular systolic function is at the lower limits of normal. The LV ejection fraction is 54% (calculated via biplane measurement). Average global longitudinal strain (GLS) is -14.8%, as measured on [employer] software platform. LV diastolic function appears within normal limits for age. The E/A ratio is 0.7. The e' septal wave velocity is 4.8 cm/s. The e' lateral wave velocity is 5.6 cm/s. The average E/e' ratio is 12.0. Right Ventricle The right ventricle is normal in size. Right ventricular systolic function is at the lower limits of normal. TAPSE is 17 mm. RV S' wave is 10.4 cm/s. Left Atrium The left atrium is normal in size. The left atrial volume is 27 mL. The left atrial volume index by BSA is 13 mL/m2. Right Atrium The right atrium is normal in size. The IVC is suboptimally visualized (RA pressure not estimated). Mitral Valve The mitral valve appears normal. There is no mitral stenosis. There is trace mitral regurgitation. Tricuspid Valve The tricuspid valve appears normal. There is no tricuspid stenosis. There is trace tricuspid regurgitation. The RV systolic pressure was calculated at 19 mmHg (using TR peak velocity of 2.2 m/s and exclusive of RA pressure). Aortic Valve The aortic valve is tricuspid. There is leaflet thickening. There is no aortic stenosis. There is no aortic regurgitation. The aortic sinuses are normal in size. Ascending aorta suboptimally visualized. Pulmonic Valve There is no obvious structural abnormality. There is no pulmonic stenosis. Pericardium There is no pericardial effusion. General Findings The image quality was fair (3). Strain performed. Technique(s) used in the evaluation: Color flow Doppler and Spectral Doppler. Consent was obtained from: patient The predominant rhythm during the study was sinus. Patient tolerated the procedure well. No complications observed during the procedure. Comparison Findings There are no prior studies for comparison. IAS/IVS The interatrial septum is suboptimally visualized. There is no evidence of patent foramen ovale (PFO) by Doppler. Gretchen Schuster MD CV ECHO ORDERABLES Final R esult documented in this encounter Visit Diagnoses Diagnosis Transient cerebral ischemia, unspecified type- Primary Transient cerebral ischemia, unspecified type documented in this encounter Care Teams [employer] Computer Science Teacher Relationship Specialty Start Date End Date Gretchen Schuster MD [address] [place] [id number] [email or web address] PCP - General Family Medicine 02/09/25 documented as of this encounter Additional Source Comments The information contained in this document represents components of the legal health record. It is not the complete legal health record.[facility]
--- OUTSIDE RECORDS SUMMARY | 2025-05-22 11:53 | XMS_ITS | Encounter Summary ---
Author Organization [facility] Address [address] [place] [address] Phone Care Team Providers Care Resolution Manager Name Role Phone Gretchen Schuster MD Primary Care Provider [phone] Encounter Details Date Type Department Care Team (Late st Contact Info) Description 02/28/2025 Procedure Pass [facility] [address] [place] [address] Social History Tobacco Use Types Packs/Day Years [...] 09/08/2025 2:00 PM EST Office Visit [facility] Neurology [address] [place] [address] Brandon Cordoba MD [address] [place] [address], [address] [place] [phone] [email or web address] documented as of this encounter Visit Diagnoses Not on filedocumented in this encounter Care Teams Resolution Manager Relationship Specialty Start Date End Date Gretchen Schuster MD [address] [place] [phone] PCP - General Family Medicine 02/09/25 documented as of this encounter Additional Source Comments The information contained in this document represents components of the legal health record. It is not the complete legal health record.[facility]
--- OUTSIDE RECORDS SUMMARY | 2025-05-22 11:53 | XMS_ITS | Encounter Summary ---
Author Organization [facility] Address [address] [place] [address] Phone Care Team Providers Care Traffic Signal Technician Name Role Phone Marco Dooley MD Primary Care Provider [phone] Gretchen Schuster MD Primary Care Provider [phone] Encounter Details Date Type Department Care Team (Latest Contact Info) Description 12/14/2020 Transcribe Orders Virtual Department [address] [place] [address] Salima Mcgregor [address], [address] [place] [phone] [email or web address] Scrotal varices (Primary Dx) Social History Tobacco Use Types [...] Description 09/08/2025 2:00 PM EST Office Visit [facility] Neurology [address] [place], [place] [id number] Brandon Cordoba MD [address] [facility], 2nd [place] [address] [email or web address] documented as of this encounter Results * US Kidneys (12/16/2020 9:07 AM EDT) Anatomical Region Laterality Modality Abdomen, Kidney Ultrasound 12/16/2020 9:12 AM EDT Impressions 12/16/2020 9:13 AM EDT 1.Normal renal ultrasound. 2.Mild prostatomegaly. Narrative 12/16/2020 9:13 AM EDT COMPARISON: None. RENAL ULTRASOUND FINDINGS: Right Kidney: measures 12 x 5 cm. No hydronephrosis, masses or calculi. Cortical echogenicity and thickness are normal. No perinephric fluid collections. Left Kidney: measures 11 x 6 cm. No hydronephrosis, masses or calculi. Cortical echogenicity and thickness are normal. No perinephric fluid collections. Additional findings: Mild prostatomegaly. Procedure Note Feliz West MD - 12/16/2020 COMPARISON: None. RENAL ULTRASOUND FINDINGS: Right Kidney: measures 12 x 5 cm. No hydronephrosis, masses or calculi.Cortical echogenicity and thickness are normal. No perinephric fluidcollections. Left Kidney: measures 11 x 6 cm. No hydronephrosis, masses or calculi.Cortical echogenicity and thickness are normal. No perinephric fluidcollections. Additional findings: Mild prostatomegaly. IMPRESSION: 1.Normal renal ultrasound. 2.Mild prostatomegaly. Salima Mcgregor CNP IMG US RENAL Final Resu lt documented in this encounter Visit Diagnoses Diagnosis Scrotal varices- Primary Scrotal varices documented in this encounter Care Teams Traffic Signal Technician Relationship Specialty Start Date End Date Marco Dooley MD [address] [facility] [address] [place] [id number] [email or web address] PCP - General 07/16/17 02/08/25 Gretchen Schuster MD [address] [place] [phone] [email or web address] PCP - General Family Medicine 02/09/25 documented as of this encounter Additional Source Comments The information contained in this document represents components of the legal health record. It is not the complete legal health record.[facility]
--- OUTSIDE RECORDS SUMMARY | 2025-05-22 11:53 | XMS_ITS | Encounter Summary ---
Author Organization [facility] Address [address] [place] [address] Phone Care Team Providers Care Anaesthesiologist Name Role Phone Marco Dooley MD Primary Care Provider [phone] Gretchen Schuster MD Primary Care Provider [phone] Encounter Details Date Type Department Care Team (Latest Contact Info) Description 01/04/2021 Transcribe Orders Virtual Department [address] [place], [place] [id number] Marco Dooley MD [address] [facility] [address] [place] [phone] [email or web address] Scrotal varices (Primary Dx) Social History Tobacco [...] 2:00 PM EST Office Visit [facility] Neurology [address] [place] [address] Brandon Cordoba MD [address] [place] [address] [email or web address] documented as of this encounter Visit Diagnoses Diagnosis Scrotal varices- Primary documented in this encounter Care Teams Anaesthesiologist Relationship Specialty Start Date End Date Marco Dooley MD [address] [facility] [address] [place] [phone] [email or web address] PCP - General 07/16/17 02/08/25 Gretchen Schuster MD [address] [place], [place] [id number] [email or web address] PCP - General Family Medicine 02/09/25 documented as of this encounter Additional Source Comments The information contained in this document represents components of the legal health record. It is not the complete legal health record.[facility]
--- OUTSIDE RECORDS SUMMARY | 2025-05-22 11:53 | XMS_ITS | Clinical Summary ---
Author Organization [facility] Address [address] [place] [address] Phone Care Team Providers Care Wound Care Rn Name Role Phone Gretchen Schuster MD Primary Care Provider [phone]- [phone] Allergies Active Allergy Reactions Criticality Noted Date Comments Erythromycin Other (See Comments) 07/16/2017 Eye ointment erythromycin Medications LOVASTATIN ORAL Acti ve FINASTERIDE ORAL Active ASPIRIN ORAL Active LEVOTHYROXINE SODIUM (LEVOTHYROXINE ORAL) Active SERTRALINE HCL (SERTRALINE ORAL) Active buPROPion (WELLBUTRIN SR) 150 MG SR 12 hr tablet Take 150 mg by mouth 2 (two) times a day. 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 (MRI Results?) 04/24/2025 12:30 PM EDT Office Visit [facility] at [address] [address] Estella Lennon CNP Anxiety disorder, unspecified type (Primary Dx); Hypertension, unspecified type 04/11/2025 3:00 PM EDT Office Visit [facility] Neurology [address] [place] [address] Brandon Cordoba MD Hyperreflexia (Primary Dx); Imbalance; Paresthesias; Dizziness and giddiness 02/28/2025 2:07 PM EDT - 02/28/2025 11:59 PM EDT Hospital Encounter [facility] Echo Lab [address] [place] [address] Gretchen Schuster MD Discharge Disposition: Home or Self Care 02/28/2025 Telephone [facility] Neurology [address] [place] [address] Nubia Prather MA 02/28/2025 Procedure Pass [facility] Echo Lab [address] [place] [address] 02/28/2025 Transcribe Orders Virtual Department [address] [place] [address] Brenda Valle MA Transient cerebral ischemia, unspecified type (Primary Dx) 02/26/2025 4:11 PM EDT - 02/26/2025 7:31 PM EDT Emergency [facility] Emergency [address] [place] [address] Britney Sullivan PA-C Devries, Stephen G, MD Discharge Disposition: Home or Self Care 02/25/2025 Procedure Pass [facility], Ct Scan - [address] [address] 02/24/2025 11:32 PM EDT - 02/25/2025 5:35 AM EDT Emergency [facility] Emergency [address] [place] [address] Sang Blue MD Discharge Disposition: Home or Self Care 02/22/2025 5:08 PM EDT - 02/22/2025 7:12 PM EDT Emergency [facility] Emergency [address] [place] [address] Dieter Kelly MD Discharge Disposition: Home or Self Care 02/21/2025 Transcribe Orders Virtual Department [address] [place] [address] Amy Eldridge MD Dizziness and giddiness (Primary Dx); Vision loss; Asymmetrical hearing loss from Last 3 Months Social History Tobacco Use Types Packs/Day Years [...] PM EDT Sexual Orientation Not on file Last Filed Vital Signs Vital Sign Reading Time Taken Comments Blood Pressure 168/98 04/24/2025 12:28 PM EDT Pulse 98 04/24/2025 12:28 PM EDT Temperature 36.8 C (98.2 F) 04/24/2025 12:28 PM EDT Respiratory Rate 18 04/24/2025 12:28 PM EDT Oxygen Saturation 99% 04/24/2025 12:28 PM EDT Inhaled Oxygen Concentration - - Weight 88.5 kg (195 lb) 04/24/2025 12:28 PM EDT Height 180.3 cm (5' 11 ) 04/24/2025 12:28 PM EDT Body Mass Index 27.2 04/24/2025 12:28 PM EDT Plan of Treatment Upcoming Encounters Date Type Department Care Team (Late st Contact Info) Description 09/08/2025 2:00 PM EST Office Visit [facility] Neurology [address] [place] [address] Brandon Cordoba MD [address] [facility]nd [place] [address] [email or web address] Health Maintenance Due Date Last Done Comments LIPID PANEL 1945 DEPRESSION SCREENING 1957 HEPATITIS C SCREENING 1963 INFLUENZA VACCINE (#1) 2025 , 06/19/2023, 06/01/2022, Additional history exists COVID-19 VACCINE ( season) 2025 05/26/2024, 05/26/2024, 06/19/2023, Additional history exists TSH LEVEL 02/26/2026 02/26/2025 Adult Td,Tdap Booster 04/11/2034 04/11/2024 , 01/21/2014, 01/21/2004 PNEUMOCOCCAL VACCINES (50+ years) Completed 01/20/2015, 07/08/2013 ZOSTER VACCINES Completed 07/07/2018, 05/20, 02/08/2018, Additional history exists RSV VACCINE Completed 10/05/2023 SMOKING STATUS SCREENING (Once After 26 Yrs) Completed 02/24/2025 HEPATITIS A VACCINES Aged Out No long er eligible based on patient's age to complete this topic HIB VACCINES Aged Out No longer eligi ble based on patient's age to complete this topic MENINGOCOCCAL VACCINES (ACWY) Aged Out No longer eligible based on patient's age to complete this topic MENINGOCOCCAL VACCINES (B) Aged Out N o longer eligible based on patient's age to complete this topic Medical Devices Not on file Procedures Procedure Name Priority Date/Time Associated Diagnosis Comments MRI CERVICAL SPINE Routine 04/11/2025 3: 55 PM EDT Hyperreflexia Imbalance Paresthesias Dizziness and giddiness TTE COMPREHENSIVE Routine 02/28/2025 2:5 2 PM EDT Transient cerebral ischemia, unspecified type TSH WITH REFLEX STAT 02/26/2025 3:01 PM EDT MAGNESIUM STAT 02/26/2025 3:01 PM EDT CBC AND DIFFERENTIAL STAT 02/26/2025 3:01 PM EDT BASIC METABOLIC PANEL STAT 02/26/2025 3:01 PM EDT LYME SCREEN WITH REFLEX TO WESTERN BLOT, BLOOD STAT 02/26/2025 3:01 PM EDT BABESIA SPECIES PCR STAT 02/26/2025 3 :01 PM EDT Ehrlichia/anaplasma PCR STAT 02/26/2025 3:[address] ANGIO HEAD WITH AND WITHOUT CONTRAST, CT ANGIO NECK WITH CONTRAST Routine 02/25/2025 1:42 AM EDT BASIC METABOLIC PANEL STAT 02/24/2025 7:38 PM EDT CBC AND DIFFERENTIAL STAT 02/24/2025 7:38 PM EDT ECG 12-LEAD STAT 02/24/2025 7:15 PM EDT POCT GLUCOSE Routine 02/24/2025 7:15 PM EDT TROPONIN STAT 02/22/2025 5:35 PM EDT TROPONIN STAT 02/22/2025 4:32 PM EDT BASIC METABOLIC PANEL STAT 02/22/2025 4:32 PM EDT CBC AND DIFFERENTIAL STAT 02/22/2025 4:32 PM EDT ECG 12-LEAD STAT 02/22/2025 3:57 PM EDT from Last 3 Months Results * TTE COMPREHENSIVE (02/28/2025 2:52 PM [...] Systolic Pressure (Assuming RAP 10) 29 mmHg MGB CV ECHO TV RVSP (ASSUMING RAP OF [...] MD CV ECHO ORDERABLES Final R esult * Babesia species PCR (02/26/2025 3:01 PM EDT) B.Microti PCR Negative Negative [facility] DPT OF LAB MED AND PAT+ B.Duncani PCR Negative Negative [facility] DPT OF LAB MED AND PAT+ B.Divergens/MO-1 PCR Negative Negative [facility] DPT OF LAB MED AND PAT+ Comment: (NOTE) ADDITIONAL INFORMATION This test was developed and its performance characteristics determined by [facility] in a manner consistent with CLIA requirements. This test has not been cleared or approved by the U.S. Food and Drug Administration. Blood 02/26/2025 3:01 PM EDT 02/26/2025 3:06 PM EDT Tomasa Moore PA-C LAB BLOOD ORDERABLES Final Result Performing Organization Address [facility] Co de Phone Number [facility] DPT OF LAB MED AND PAT+ [address] [place] [address] * Ehrlichia/anaplasma PCR (02/26/2025 3:01 PM EDT) [facility] ANAPLASMA PHAGOCYTO Negative Negative [facility] DPT OF LAB MED AND PAT+ EHRLICHIA CHAFFEENS Negative Negative [facility] DPT OF LAB MED AND PAT+ EHRL EWINGII/CANIS Negative Negative [facility] DPT OF LAB MED AND PAT+ EHRL MURIS-LIKE Negative Negative [facility] DPT OF LAB MED AND PAT+ Comment: (NOTE) ADDITIONAL INFORMATION This test was developed and its performance characteristics determined by [facility] in a manner consistent with CLIA requirements. This test has not been cleared or approved by the U.S. Food and Drug Administration. Blood 02/26/2025 3:01 PM EDT 02/26/2025 3:06 PM EDT Tomasa Moore PA-C LAB BLOOD ORDERABLES Final Result Performing Organization Address City/[facility] Co de Phone Number [facility] DPT OF LAB MED AND PAT+ [address] [place] [address] * Lyme Screen with Reflex to Immunoblot, Blood (02/26/2025 3:01 PM EDT) [facility] Lyme AB IgG Negative Negative [facility] Lyme AB IgM Negative Negative [facility] Blood 02/26/2025 3:01 PM EDT 02/26/2025 3:05 PM EDT Tomasa Moore PA-C LAB BLOOD ORDERABLES Final Result Performing Organization Address City/[facility]/ZIP Co de Phone Number [address] [address] * TSH with reflex (02/26/2025 3:01 PM EDT) TSH 0.63 0.27 - 4.20 uIU/mL [facility] Blood 02/26/2025 3:01 PM EDT 02/26/2025 3:05 PM EDT Tomasa Moore PA-C LAB BLOOD ORDERABLES Final Result Performing Organization Address [facility] Co de Phone Number [address] [address] * (ABNORMAL) CBC and differential (02/26/2025 3:01 PM EDT) Only the most recent of3 resultswithin the time period is included. WBC 5.50 4.00 - 11.00 K/uL [facility] RBC 4.85 4.50 - 5.90 M/uL [facility] HGB 15.2 13.5 - 17.5 g/dL [facility] HCT 44.8 41.0 - 53.0 % [facility] PLT 268 150 - 450 K/uL [facility] MCV 92.4 80.0 - 100.0 fL [facility] MCH 31.3(H) 27.0 - 31.0 pg [facility] MCHC 33.9 32.0 - 36.0 g/dL [facility] RDW 11.8 11.5 - 14.5 % [facility] MPV 8.8 8.4 - 12.0 fL [facility] NRBC 0.00 0.00 /100 WBCs [facility] ABSOLUTE NRBC 0.00 0.00 K/uL [facility] DIFF METHOD Auto [facility] NEUTS 67.8 48.0 - 76.0 % [facility] LYMPHS 18.4 18.0 - 41.0 % [facility] MONOS 9.8 4.0 - 11.0 % [facility] EOS 3.1 0.0 - 5.0 % [facility] BASOS 0.5 0.0 - 1.5 % [facility] Granulocytes, immature (%) 0.4 0.0 - 0.9 % [facility] ABSOLUTE NEUTS 3.73 1.92 - 7.60 K/uL [facility] ABSOLUTE LYMPHS 1.01 0.72 - 4.10 K/uL [facility] ABSOLUTE MONOS 0.54 0.16 - 1.10 K/uL [facility] ABSOLUTE EOS 0.17 0.00 - 0.50 K/uL [facility] ABSOLUTE BASOS 0.03 0.00 - 0.15 K/uL [facility] Granulocytes, immature 0.02 0.00 - 0.09 K/uL [facility] Blood 02/26/2025 3:01 PM EDT 02/26/2025 3:05 PM EDT Tomasa Moore PA-C LAB BLOOD ORDERABLES Final Result [address] [address] * Magnesium (02/26/2025 3:01 PM EDT) MAGNESIUM 2.1 1.6 - 2.6 mg/dL [facility] Blood 02/26/2025 3:01 PM EDT 02/26/2025 3:05 PM EDT Tomasa Moore PA-C LAB BLOOD ORDERABLES Final Result Performing Organization Address [facility]/ZIP Co de Phone Number [address] [address] * (ABNORMAL) Basic metabolic panel (02/26/2025 3:01 PM EDT) Only the most recent of3 resultswithin the time period is included. SODIUM 138 133 - 146 mmol/L [facility] CHLORIDE 101 96 - 108 mmol/L [facility] POTASSIUM 4.2 3.3 - 5.1 mmol/L [facility] CO2 28 21 - 35 mmol/L [facility] BUN 14 6 - 19 mg/dL [facility] CREATININE 1.10 0.5 - 1.5 mg/dL [facility] GLUCOSE 101(H) 70 - 99 mg/dL [facility] CALCIUM 9.4 8.4 - 10.3 mg/dL [facility] EGFR 68 >59 mL/min/1.7 3m2 [facility] Comment:Estimated glomerular filtration rate calculated using the CKD-EPI refit equation. ANION GAP 13 10 - 20 mmol/L [facility] Blood 02/26/2025 3:01 PM EDT 02/26/2025 3:05 PM EDT us Tomasa Moore PA-C LAB BLOOD ORDERABLES Final Result [facility] [address] [place] [address] * CT ANGIO HEAD WITH AND WITHOUT CONTRAST, CT ANGIO NECK WITH CONTRAST (02/25/2025 1:42 AM EDT) Anatomical Region Laterality Modality Neck Computed Tomogra phy 02/25/2025 4:28 AM EDT Impressions 02/25/2025 4:45 AM EDT 1. No evidence of acute intracranial hemorrhage, midline shift, or mass effect. Please note that CT may show no acute findings in the setting of early ischemic infarct and lacks sensitivity as compared to MRI. 2. No evidence of large vessel cut off, high-grade stenosis, aneurysm, or dissection on the head and neck CTA. Narrative 02/25/2025 4:[address] ANGIO HEAD WITH AND WITHOUT CONTRAST, CT ANGIO NECK WITH CONTRAST Referring clinician's provided indication for this examination in Epic: * Dizziness, persistent/recurrent, cardiac or vascular cause suspected TECHNIQUE: * Multidetector-row CTA of the head was performed before and after administration of intravenous contrast using tailored dose modulation techniques. Images were reconstructed in the axial, coronal, and sagittal planes, including angiographic image post-processing. 3D angiographic images with reformatting and post- processing reconstructions were performed and interpreted. * Multidetector-row CTA of the neck was performed after administration of intravenous contrast using tailored dose modulation techniques. Images were reconstructed in the axial, coronal, and sagittal planes. 3D angiographic images with reformatting and post-processing reconstructions were performed and interpreted. COMPARISON: None FINDINGS: CT HEAD: Brain Parenchyma: No acute intraparenchymal hemorrhage, midline shift, or mass effect. There are areas of hypodensity in the periventricular white matter, likely a manifestation of chronic small vessel disease. Ventricular System and Extra-Axial Spaces: The ventricles and sulci are prominent. No extra-axial fluid collections. Basilar cisterns are patent. No hydrocephalus. Calcified intracranial vascular disease. Osseous and Extracranial Structures: No acute calvarial fracture. The mastoid air cells are well-aerated. The paranasal sinuses are grossly clear. The bilateral globes are intact with bilateral lens replacement. The soft tissues are unremarkable. CTA HEAD: No aneurysm or arteriovenous malformation. Intracranial internal carotid arteries: No occlusion or high grade stenosis. Calcified atherosclerotic disease of the bilateral carotid siphons. Anterior cerebral arteries: No occlusion or high grade stenosis. Middle cerebral arteries: No occlusion or high grade stenosis. Vertebrobasilar system: No occlusion or high grade stenosis. Posterior cerebral arteries: No occlusion or high grade stenosis. Venous: No dural sinus thrombosis. CTA NECK: Aortic Arch and Branch Vessel Origins: Shared common origin of the right brachiocephalic trunk and left common carotid artery. No high grade stenosis. Atheromatous disease with ulcerative plaque along the aortic arch. Right Carotid Artery: No occlusion, high grade stenosis or dissection. Atheromatous disease of the proximal internal carotid artery without significant stenosis. Ectasia of the proximal right internal carotid artery measuring up to 1.1 cm. Left Carotid Artery: No occlusion, high grade stenosis or dissection. Right Vertebral Artery: No occlusion, high grade stenosis or dissection. Atheromatous disease of the V4 segment without significant stenosis. Left Vertebral Artery: No occlusion, high grade stenosis or dissection. Atheromatous disease of the V4 segment with mild stenosis. Venous structures: The jugular veins enhance normally. NON-VASCULAR FINDINGS: Lungs and Airways: No acute abnormality. Soft tissues: No adenopathy. Bones: Degenerative changes of the cervical spine. Procedure Note Francisco Chakraborty MD - 02/25/2025 CT ANGIO HEAD WITH AND WITHOUT CONTRAST, CT ANGIO NECK WITH CONTRAST Referring clinician's provided indication for this examination in Epic: *Dizziness, persistent/recurrent, cardiac or vascular cause suspected TECHNIQUE: * Multidetector-row CTA of the head was performed before and afteradministration of intravenous contrast using tailored dose modulationtechniques. Images were reconstructed in the axial, coronal, and sagittalplanes, including angiographic image post-processing. 3D angiographicimages with reformatting and post-processing reconstructions wereperformed and interpreted. * Multidetector-row CTA of the neck was performed after administration ofintravenous contrast using tailored dose modulation techniques. Imageswere reconstructed in the axial, coronal, and sagittal planes. 3Dangiographic images with reformatting and post-processing reconstructionswere performed and interpreted. COMPARISON: None FINDINGS: CT HEAD: Brain Parenchyma: No acute intraparenchymal hemorrhage, midline shift, ormass effect. There are areas of hypodensity in the periventricular whitematter, likely a manifestation of chronic small vessel disease. Ventricular System and Extra-Axial Spaces: The ventricles and sulci areprominent. No extra-axial fluid collections. Basilar cisterns are patent.No hydrocephalus. Calcified intracranial vascular disease. Osseous and Extracranial Structures: No acute calvarial fracture. Themastoid air cells are well-aerated. The paranasal sinuses are grosslyclear. The bilateral globes are intact with bilateral lens replacement.The soft tissues are unremarkable. CTA HEAD: No aneurysm or arteriovenous malformation. Intracranial internal carotid arteries: No occlusion or high gradestenosis. Calcified atherosclerotic disease of the bilateral carotidsiphons. Anterior cerebral arteries: No occlusion or high grade stenosis. Middle cerebral arteries: No occlusion or high grade stenosis. Vertebrobasilar system: No occlusion or high grade stenosis. Posterior cerebral arteries: No occlusion or high grade stenosis. Venous: No dural sinus thrombosis. CTA NECK: Aortic Arch and Branch Vessel Origins: Shared common origin of the rightbrachiocephalic trunk and left common carotid artery. No high gradestenosis. Atheromatous disease with ulcerative plaque along the aorticarch. Right Carotid Artery: No occlusion, high grade stenosis or dissection.Atheromatous disease of the proximal internal carotid artery withoutsignificant stenosis. Ectasia of the proximal right internal carotidartery measuring up to 1.1 cm. Left Carotid Artery: No occlusion, high grade stenosis or dissection. Right Vertebral Artery: No occlusion, high grade stenosis or dissection.Atheromatous disease of the V4 segment without significant stenosis. Left Vertebral Artery: No occlusion, high grade stenosis or dissection.Atheromatous disease of the V4 segment with mild stenosis. Venous structures: The jugular veins enhance normally. NON-VASCULAR FINDINGS: Lungs and Airways: No acute abnormality. Soft tissues: No adenopathy. Bones: Degenerative changes of the cervical spine. IMPRESSION: 1. No evidence of acute intracranial hemorrhage, midline shift, or masseffect. Please note that CT may show no acute findings in the setting ofearly ischemic infarct and lacks sensitivity as compared to MRI. 2. No evidence of large vessel cut off, high-grade stenosis, aneurysm, ordissection on the head and neck CTA. us Sang Blue MD IMG CT HEAD/NECK Final Result * ECG 12-LEAD (02/24/2025 7:15 PM EDT) Only the most recent of2 resultswithin the time period is included. Ventricular Rate EKG/MIN 87 BPM [facility] Atrial Rate 87 BPM [facility] MN Interval 156 ms [facility] QRS Duration 78 ms [facility] QT Interval 386 ms [facility] QTC Interval 464 ms [facility] P [place] 21 degrees [facility] R Wave [place] -8 degrees [facility] T Wave [place] 5 degrees [facility] 02/24/2025 7:15 PM EDT 02/25/2025 10:57 AM EDT Narrative [facility] - 02/25/2025 10:57 AM EDT Normal sinus rhythm Normal ECG When compared with ECG of 22-Feb-2025 15:57, No significant change was found Confirmed by Denzel Macedo ([id number]) on 02/25/2025 10:57:43 AM us Feliz Tanner MD ECG ORDERABLES F inal Result Performing Organization Address City/[facility]/ZIP Co de Phone Number [facility] * POCT Glucose (02/24/2025 7:15 PM EDT) Glucose, POCT 87 70 - 100 mg/dL [facility] 02/24/2025 7:15 PM EDT 02/24/2025 7:20 PM EDT us Unknown Unknown POINT OF CARE TEST ORDERABLES Final Result Performing Organization Address [facility] Co de Phone Number [address] [address] * (ABNORMAL) Troponin (02/22/2025 5:35 PM EDT) Only the most recent of2 resultswithin the time period is included. Troponin-T, HS Gen5 15(H) 0 - 14 ng/L [facility] Blood 02/22/2025 5:35 PM EDT 02/22/2025 6:09 PM EDT us Dieter Kelly MD LAB BLOOD ORDERABLES Final Result Performing Organization Address [facility] Co de Phone Number [address] [address] from Last 3 Months Insurance MEDICARE PART A & B [facility] MEDICARE ENHANCE SUPPLEMENT [facility] MEDICARE ENHANCE SUPPLEMENT MEDICARE PART A & B MEDICARE PART A & B MEDICARE PART A & B MEDICARE ENHANCE SUPPLEMENT MEDICARE PART A & B MEDICARE PART A & B MEDICARE ENHANCE SUPPLEMENT MEDICARE PART A & B [facility] MEDICARE ENHANCE SUPPLEMENT [facility] [place] Address: [facility] [id number] [address] [place] [address] MEDICARE PART A & B [facility] MEDICARE ENHANCE SUPPLEMENT Care Teams Wound Care Rn Relationship Specialty Start Date End Date Gretchen Schuster MD [address] [place] [id number] [email or web address] PCP - General Family Medicine 02/09/25 Additional Source Comments The information contained in this document represents components of the legal health record. It is not the complete legal health record.[facility]
== END 2025-05-22 11:13 | disposition home or self-care (01) ==
LOC: HO.HOP 10:31
PROVIDERS: PCP Family Medicine; Visit Provider Psychiatry & Neurology Psychiatry
DX: F33.42 Major depressive disorder, recurrent, in full remission (principal); F41.9 Anxiety disorder, unspecified
CPT/HCPCS: 99214

== ENCOUNTER → 2025-05-22 10:31 | Outpatient (BNVA) | payer MEDICARE, OTHER, SELFPAY | PROVIDERS: PCP Family Medicine; Visit Provider Psychiatry & Neurology Psychiatry | DX: F33.42 Major depressive disorder, recurrent, in full remission (principal); F41.9 Anxiety disorder, unspecified | CPT/HCPCS: 99212 ==

== ENCOUNTER 2025-08-20 10:21 | Outpatient (AMB) | payer MEDICARE, OTHER, SELFPAY ==
--- NOTE | 2025-08-20 11:05 | MHC.OFFVISPS ---
Intake Intake Visit Reasons: depression Medication List - Last Reconciled 08/20/25 by Rafa Hobson MD bupropion HCl XL 150 mg PO QAM finasteride 5 mg PO DAILY levothyroxine 137 mcg PO DAILY lorazepam 0.5 mg PO DAILY PRN 30 days lovastatin 20 mg PO DAILY sildenafil 50 mg PO DAILY PRN HPI- Psychiatric Chief Complaint: depression HPI Narrative: PATIENT SUMMARY The patient presented for a follow-up psychiatric evaluation primarily to discuss anxiety management and medication review. HPI The patient reported having been doing physical therapy to improve balance and walking, which had returned to normal. The patient noted no measurable anxiety recently but requested a refill of lorazepam as a precaution, as the original prescription could not be located. The patient described a previous episode of sudden and extreme balance issues which triggered anxiety. This issue had been evaluated by a neurologist, with no specific cause identified, and all tests, including MRIs, were negative except for arthritis in the neck. The patient had experienced numbness in the toes and arm, which was attributed to potential nerve compression due to arthritis. The patient discussed feeling more aware of aging and had no current anxiety symptoms, managing occasional anxiety with deep breathing. MENTAL STATUS The patient stated their mood as been okay. PAIN The patient did not report a specific pain level, focusing instead on symptoms of numbness and balance issues. BACKGROUND The patient did not report any new allergies or medications. There was a discussion about previous use of escitalopram, which initially increased anxiety due to an incorrect dosage. The patient had not experienced anxiety lately and was managing it with deep breathing. The patient was not experiencing any physical symptoms that required immediate attention. Past Psychiatric History: Past history of depression anxiety was a patient Dr. Paez Assessment and Plan Assessment & Plan (1) Major depression, recurrent, full remission: Status: Acute Code(s): F33.42 - Major depressive disorder, recurrent, in full remission (2) Anxiety disorder: Status: Acute Code(s): F41.9 - Anxiety disorder, unspecified Plan Patient generally stable doing well has compensatory strategies for occasional anxiety. We did discuss risks benefits alternatives of the possibility of restarting escitalopram at 5 mg and discuss this could be an option in the future if anxiety would increase or panic were to return patient does have coping strategies for dealing with panic attacks. Mood stable Patient is PHQ-9 ANGIE not elevated follow-up 2-3 months consider patient being followed by his primary care if no change Continue Wellbutrin 150 occasional use of lorazepam rarely reviewed risks benefits to lorazepam particularly with regular use Medications: Refilled bupropion HCl XL 150 mg PO QAM 90 tabs 1RF lorazepam 0.5 mg PO DAILY PRN 20 tabs 2RF anxiety 30 days Counseling and coordination of Care Details-Self Mgmt counseling: Discussed relaxation techniques and breathing techniques to deal with possible panic Diagnosis and Prognosis Counseling: Impact of diagnosis on life functions and Adequacy of current interventions Details: I spent [30] minutes reviewing the record, seeing the patient and documenting in the medical record. Counseling provided to the patient/caregiver as outlined below. Addressed patient/caregiver concerns regarding current medication regime including effective adherence. Addressed patient/caregiver concerns regarding diagnosis and prognosis including accuracy of diagnosis, prognosis over time, impact of diagnosis. Addressed patient/caregiver concerns regarding impact of recent stressors. [facility] Medical History (Updated 05/11/25 @ 21:52 by Rafa Hobson MD) Major depression, recurrent, full remission Social History: Patient has 2 children. 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 Family history of bipolar disorder and depression patient had social anxieties child Substance History: none Trauma History: Both parents were alcoholics Coding Level of Care Code Est Pt Level 4 (90990) Diagnoses Major depression, recurrent, full remission F33.42 Anxiety disorder F41.9
--- OUTSIDE RECORDS SUMMARY | 2025-08-20 11:49 | XMS_ITS | Encounter Summary ---
Author Organization [facility] Address [address] [place] [address] Phone Care Team Providers Care Recording Artist Name Role Phone Gretchen Schuster MD Primary Care Provider [phone]- [phone] Encounter Details Date Type Department Care Team (Latest Contact Info) Description 02/21/2025 Transcribe Orders Virtual Department 30 [place] [address] Amy Eldridge MD [address] [place] [address] [email or web address] Dizziness and giddiness (Primary Dx); Vision [...] 7:15 PM EDT Gisselle Calabrese RN * [place] Suicide Severity Rating Scale (Screener/Recent Self-Report) Question [...] Description 09/08/2025 2:00 PM EST Office Visit [facility] Neurology [address] [place] [address] Brandon Cordoba MD [address] [place] [address], 2nd [place] [address] [email or web address] documented as of this encounter Visit Diagnoses Diagnosis Dizziness and giddiness- Primary Vision loss Unspecified visual loss Asymmetrical hearing loss Unspecified hearing loss documented in this encounter Care Teams Recording Artist Relationship Specialty Start Date End Date Gretchen Schuster MD [address] [place] [phone] [email or web address] PCP - General Family Medicine 02/09/25 documented as of this encounter Additional Source Comments The information contained in this document represents components of the legal health record. It is not the complete legal health record.[facility]
--- OUTSIDE RECORDS SUMMARY | 2025-08-20 11:50 | XMS_ITS | Encounter Summary ---
Author Organization [facility] Address [address] [place] [address] Phone Care Team Providers Care School Transportation Director Name Role Phone Gretchen Schuster MD Primary Care Provider [phone]- [phone] Reason for Referral * Outpatient Procedure - Closed Specialty Diagnoses / Procedures Referred By Mary Jane leavitt Referred To Contact Diagnoses Transient cerebral ischemia, unspecified type Procedures Adult Echo TTE Gretchen Schuster MD [address] [place] [address] Phone: tel: fax: [email or web address] Referral ID Status Reason Start Date Expiration Date Visits Re quested Visits Authorized [id number] Closed 02/28/2025 02/28/2026 1 1 Encounter Details Date Type Department Care Team (Late st Contact Info) Description 02/28/2025 Transcribe Orders Virtual Department 30 [place] [address] Brenda Valle [place] [email or web address] Transient cerebral ischemia, unspecified type (Primary Dx) [...] Description 09/08/2025 2:00 PM EST Office Visit [facility] Neurology [address] [place] [address] Brandon Cordoba MD [address] [facility], 2nd [place] [address] [email or web address] documented as of this encounter Results * [...] Systolic Pressure (Assuming RAP 10) 29 mmHg [facility] CV ECHO TV RVSP (ASSUMING RAP OF [...] type documented in this encounter Care Teams School Transportation Director Relationship Specialty Start Date End Date Gretchen Schuster MD [address] [place] [phone] [email or web address] PCP - General Family Medicine 02/09/25 documented as of this encounter Additional Source Comments The information contained in this document represents components of the legal health record. It is not the complete legal health record.[facility]
--- OUTSIDE RECORDS SUMMARY | 2025-08-20 11:50 | XMS_ITS | Encounter Summary ---
Author Organization [facility] Address [address] [place] [address] Phone Care Team Providers Care Project Controller Name Role Phone Marco Dooley MD Primary Care Provider [phone] Gretchen Schuster MD Primary Care Provider [phone] Encounter Details Date Type Department Care Team (Latest Contact Info) Description 03/08/2018 Transcribe Orders [facility] [address] [place] [address] Bre Marcano PA [address] [facility] [address] [place] [phone] [email or web address] Enlarged prostate with urinary obstruction (Primary Dx) [...] Description 09/08/2025 2:00 PM EST Office Visit [facility] Neurology [address] [place] [address] Brandon Cordoba MD 22 [address] [place] [address] [email or web address] documented as of this encounter Results * PSA (screening) (03/08/2018 10:02 AM EDT) PSA 1.32 0 - 4.00 ng/mL [facility] Blood 03/08/2018 10:0 2 AM EDT 03/08/2018 10:05 AM EDT us Bre NAGEL LAB BLOOD BKR ORDERABLES F inal Result [facility] [address] [place] [address] documented in this encounter Visit Diagnoses Diagnosis Enlarged prostate with urinary obstruction- Primary 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 It is not the complete legal health record.[facility]
--- OUTSIDE RECORDS SUMMARY | 2025-08-20 11:50 | XMS_ITS | Encounter Summary ---
Author Organization [facility] Address [address] [place] [address] Phone Care Team Providers Care Can Line Examiner Name Role Phone rGetchen Schuster MD Primary Care Provider [phone]- [phone] Encounter Details Date Type Department Care Team (Late st Contact Info) Description 02/25/2025 Procedure [facility] Ct Scan - [address] [address] Social History Tobacco Use Types Packs/Day Years [...] 2:04 PM EDT Pau Sharma RN * [place] Suicide Severity Rating Scale (Screener/Recent Self-Report) Question [...] Description 09/08/2025 2:00 PM EST Office Visit [facility] [place] [address] Brandon Cordoba MD 22 [facility], 2nd [place] [address] [email or web address] documented as of this encounter Visit Diagnoses Not on filedocumented in this encounter Care Teams Can Line Examiner Relationship Specialty Start Date End Date Gretchen Schuster MD [address] [place] [address] [email or web address] PCP - General Family Medicine 02/09/25 documented as of this encounter Additional Source Comments The information contained in this document represents components of the legal health record. It is not the complete legal health record.[facility]
--- OUTSIDE RECORDS SUMMARY | 2025-08-20 11:50 | XMS_ITS | Encounter Summary ---
Author Organization [facility] Address [address] [place] [address] Phone Care Team Providers Care Technical Service Representative Name Role Phone Marco Dooley MD Primary Care Provider [phone] Gretchen Schuster MD Primary Care Provider [phone]- [phone] Encounter Details Date Type Department Care Team (Latest Contact Info) Description 12/14/2020 Transcribe Orders Virtual Department 30 [place] [address] Salima Mcgregor [address], [address] [place] [phone] [email or web address] Scrotal varices (Primary Dx) Social History [...] Description 09/08/2025 2:00 PM EST Office Visit [facility] [address] [place], [place] [phone] Brandon Cordoba MD 22 [facility], 2nd [place] [address] [email or web address] documented as of this encounter Results * [...] varices documented in this encounter Care Teams Technical Service Representative Relationship Specialty Start Date End Date Marco Dooley MD 230 [facility] [address] [place] [phone] [email or web address] PCP - General 07/16/17 02/08/25 Gretchen Schuster MD [address] [place] [phone] [email or web address] PCP - General Family Medicine 02/09/25 documented as of this encounter Additional Source Comments The information contained in this document represents components of the legal health record. It is not the complete legal health record.[facility]
--- OUTSIDE RECORDS SUMMARY | 2025-08-20 11:50 | XMS_ITS | Encounter Summary ---
Author Organization [facility] Address [address] [place] [address] Phone Care Team Providers Care Cellular Equipment Installer Name Role Phone Gretchen Schuster MD Primary Care Provider [phone]- [phone] Encounter Details Date Type Department Care Team (Late st Contact Info) Description 02/28/2025 Procedure Pass [facility] 30 [place] [address] Social History Tobacco Use Types Packs/Day Years [...] Description 09/08/2025 2:00 PM EST Office Visit [facility] Neurology [address] [place] [address] Brandon Cordoba MD [address] [place] [address], [address] [place] [address] [email or web address] documented as of this encounter Visit Diagnoses Not on filedocumented in this encounter Care Teams Cellular Equipment Installer Relationship Specialty Start Date End Date Gretchen Schuster MD [address] [place] [address] PCP - General Family Medicine 02/09/25 documented as of this encounter Additional Source Comments The information contained in this document represents components of the legal health record. It is not the complete legal health record.[facility]
--- OUTSIDE RECORDS SUMMARY | 2025-08-20 11:50 | XMS_ITS | Clinical Summary ---
Author Organization [facility] Address [address] [place] [address] Phone Care Team Providers Care Movie Actor Name Role Phone Gretchen Schuster MD Primary Care Provider [phone]- [phone] Allergies Active Allergy Reactions Criticality Noted Date [...] NEEDED FOR ANXIETY FOR 30 DAYS Active Social History Tobacco Use Types Packs/Day Years [...] Description 09/08/2025 2:00 PM EST Office Visit [facility] Neurology [address] [place] [address] Brandon Cordoba MD 22 [facility], 2nd [place] [address] [email or web address] Health Maintenance Due Date Last Done Comments LIPID PANEL 1945 DEPRESSION SCREENING 1957 HEPATITIS C SCREENING 1963 COLOGUARD 1990 FIT TEST 1990 FOBT 1990 SIGMOIDOSCOPY 1990 VIRTUAL COLONOSCOPY 1990 INFLUENZA VACCINE (#1) 2025 , 06/19/2023, 06/01/2022, Additional history exists COVID-19 VACCINE ( season) 2025 05/26/2024, 05/26/2024, 06/19/2023, Additional history exists TSH LEVEL 02/26/2026 02/26/2025 COLONOSCOPY 03/15/2026 03/16/2016 COLORECTAL CANCER SCREENING 03/15/2026 Adult Td,Tdap Booster 04/11/2034 04/11/2024 , 01/21/2014, [...] Procedure Name Priority Date/Time Associated Diagnosis Comments TSH WITH REFLEX STAT 02/26/2025 3:01 PM EDT COLONOSCOPY FOR RESULT ENTRY ONLY Routine 03/16/2016 from Last 3 Months or Most Recently Relevant to Health Maintenance Results * TSH with reflex (02/26/2025 3:01 PM EDT) TSH 0.63 0.27 - 4.20 uIU/mL [facility] Blood 02/26/2025 3:01 PM EDT 02/26/2025 3:05 PM EDT us Tomasa Moore PA-C LAB BLOOD BKR ORDERABLES Fi nal Result Performing Organization Address City/State/[facility] Co de Phone Number [address] [phone] * COLONOSCOPY FOR RESULT ENTRY ONLY (03/16/2016) Colonoscopy External us Historical Provider HEALTH MAINTENANCE Final Result from Last 3 Months or Most Recently Relevant to Health Maintenance Insurance MEDICARE PART A & B [facility] [facility] [place] [facility] [place] Address: [address] [place] [address] MEDICARE PART A & B [facility] [place]: [address] [place] [address] MEDICARE PART A & B MEDICARE PART A & B Member Subscriber Plan / Payer (Ef fective 2010-Present) Name:Jayy Hung Member ID:[id number] Relation to Subscriber:Self Name:Jayy Hung Subscriber ID:[id number] Payer ID:[id number] Group ID:Not on file Type:Medicare Address: [employer] [address] [place] [address] MEDICARE PART A & B MEDICARE ENHANCE SUPPLEMENT MEDICARE PART A & B MEDICARE PART A & B [facility] [place]: [address] [place] [address] MEDICARE PART A & B [facility] MEDICARE ENHANCE SUPPLEMENT MEDICARE PART A & B [facility] MEDICARE ENHANCE SUPPLEMENT Care Teams Movie Actor Relationship Specialty Start Date End Date Gretchen Schuster MD 70 [place] [address] [email or web address] PCP - General Family Medicine 02/09/25 Additional Source Comments The information contained in this document represents components of the legal health record. It is not the complete legal health record.[facility]
--- OUTSIDE RECORDS SUMMARY | 2025-08-20 11:50 | XMS_ITS | Encounter Summary ---
Author Organization [facility] Address [address] [place] [address] Phone Care Team Providers Care Second Cutter Name Role Phone Marco Dooley MD Primary Care Provider Gretchen Schuster MD Primary Care Provider [phone]- [phone] Encounter Details Date Type Department Care Team (Latest Contact Info) Description 01/04/2021 Transcribe Orders Virtual Department 30 [place], [place] [phone] Marco Dooley MD 230 [facility] [address] [place] [phone] [email or web address] Scrotal varices (Primary Dx) Social History Tobacco [...] Description 09/08/2025 2:00 PM EST Office Visit [facility] Neurology [address] [place] [address] Brandon Cordoba MD [address] [place] [address] [email or web address] documented as of this encounter Visit Diagnoses Diagnosis Scrotal varices- Primary documented in this encounter Care Teams Second Cutter Relationship Specialty Start Date End Date Marco Dooley MD 230 [facility] [address] [place] [phone] [email or web address] PCP - General 07/16/17 02/08/25 Gretchen Schuster MD 70 [place], [place] [phone] [email or web address] PCP - General Family Medicine 02/09/25 documented as of this encounter Additional Source Comments The information contained in this document represents components of the legal health record. It is not the complete legal health record.[facility]
== END 2025-08-20 11:02 | disposition home or self-care (01) ==
LOC: HO.HOP 10:21
PROVIDERS: PCP Family Medicine; Visit Provider Psychiatry & Neurology Psychiatry
DX: F33.42 Major depressive disorder, recurrent, in full remission (principal); F41.9 Anxiety disorder, unspecified
CPT/HCPCS: 99214

== ENCOUNTER → 2025-08-20 10:21 | Outpatient (BNVA) | payer MEDICARE, OTHER, SELFPAY | PROVIDERS: PCP Family Medicine; Visit Provider Psychiatry & Neurology Psychiatry | DX: F33.42 Major depressive disorder, recurrent, in full remission (principal); F41.9 Anxiety disorder, unspecified | CPT/HCPCS: 99212 ==

== ENCOUNTER 2025-09-09 16:19 | Outpatient (AMB) | payer MEDICARE, OTHER, SELFPAY ==
--- OUTSIDE RECORDS SUMMARY | 2025-09-08 14:00 | XMS_ITS | Encounter Summary ---
Author Organization [facility] Address [address] [place] [address] Phone Care Team Providers Care Crawler Crane Operator Name Role Phone Gretchen Schuster MD Primary Care Provider [phone] Encounter Details Date Type Department Care Team (Latest Contact Info) Description 09/08/2025 2:00 PM EST Office Visit [facility] [address] [place] [id number] Brandon Cordoba MD [address] [facility] 2nd [place] [address] [email or web address] Hyperreflexia (Primary Dx); Vitamin B12 deficiency (dietary) anemia; Dizziness and giddiness; Paresthesias; Imbalance Social History Tobacco Use Types Packs/Day Years [...] Progress Notes * Brandon Cordoba MD - 09/08/2025 2:00 PM EST Date of Visit: 09/08/2025 Reason for Visit (Chief Complaint): Dizziness HPI: Mr. Hung is a 79yo R-handed man with HTN, HLD who returns for evaluation of dizziness which he described as a woozy lightheadedness preceded by a brief painless seconds long episodes of darkened vision in addition to paresthesias in both feet, the right arm, and a general sensation of feeling more unsteady/slow on his feet. These symptoms led to 5 ED visits in January-February 2025 without any particular etiology found. Cardiac work-up was unrevealing although he has notably been hypertensive in the setting of EGD visit which he attributed to anxiety. He also noted some episodic orthostatic lightheadedness. CTA, Carotid US, and Brain MRI were unrevealing; incidental note was made of a small chronic right cerebellar stroke which would not explain his presentation. He has been maintained on aspirin and statin. I reassured him that the MRI findings are not consistent with multiple sclerosis (his younger sister has become wheelchair-bound from MS). I did not find any evidence to suggest Parkinson's disease. At our 03/2025 appt, I noted diminished vibratory sensation in his feet with brisk reflexes. We checked a C-Spine MRI 04/2025 which showed variable DJD changes without any high-grade spinal canal stenosis nor any abnormal cord signal. He returns today unaccompanied. I'm doing pretty well. He attributes this to PT Myr[facility] at [facility]. Doing a lot of balance exercises. He was using walking sticks but doesn't need them any more unless hiking on uneven ground. PT told him that arthritis might be contributing. He has some slightly residual numbness in the middle toes of both feet, no further tingling. No dizziness. No falls. Denies any tremors, stiffness, slowness, or shuffling gait. Anxiety may have been exacerbating things,so his psychiatrist rx'd ativan which he takes very infrequently. Initial HPI 04/11/25: Mr. Hung is a 79yo R-handed man with HTN, HLD who is referred for dizziness. He has been to the ED numerous times in recent months. On 02/09/25, he presented after experiencing vision going black in both eyes while at a [employer] service, causing him to put his head down bc he thought he might faint. Symptoms resolved within a few seconds, no LOC or associated headache, speech changes, or numbness/weakness. He reported some occasional lightheadedness upon standing too quickly. BP 184/124 with plans for PCP follow-up. EKG and bloodwork was benign and he was discharged home. Already onASA/statin. On 02/10/25, he returned for ongoing dizziness/lightheadedness like he might faint. BP 161/98, EKG benign, dx presyncope, and discharged home with plan for PCP follow-up. Returned to the ED 02/22/25, 02/24/25, and 02/26/25 with BP 180/100, benign EKG and flat troponins. CTA Head 02/25/25 negative. Tick panel neg. ECHO unrevealing. PCP notes mention various other somatic complaints including left leg numbness, right arm tingling, some hearing loss, a bug bite on his arm, etc. PCP referred him to Neurology for concern for TIA/stroke and patient expressed concern for MS. Outpatient Brain MRI 03/08/25 was without any acute findings, some mild chronic vascular changes and incidental chronic small stroke in the right cerebellum which would not explain his recent symptoms. He presents today accompanied by his Geni. He has some written notes to review with me. He wasasymptomatic until 02/07/25 when [facility] [place] a [employer] day service for aboutan hour when vision painlessly faded dark for a few seconds, didn't feel particularly woozy or emotional, and he put his head down and it resolved quickly. No one said that he looked ill or anything.He felt fine the rest of that day. He was able to give his speech a few minutes later. No speech deficits, numbness, or weakness at that time. The following afternoon, while sitting at a picnic, warmbut not overtly hot, when he suddenly felt lightheaded, no room spinning vertigo. He was able to walk home which was just across the street. No headache, vision changes, no slurred speech, facial droop or otherwise. He found a bug bite on his R arm but tick panel was negative. He felt persistently lightheaded for several hours so drove him to the ED, didn't find anything wrong so came home. He can't think of any provoking exacerbating factors aside from feeling anxious about the symptoms. He returned to the ED the next day when the dizziness recurred, again with benign work-up. He returned 3 more times in the following days with migratory numbness in his L leg like it was dragging withtingling in both legs + R forearm. Each ED visit was without any particular explanation. He continues to have some constant paresthesias in both sets of middle toes and in his R forearm. He feels somewhat unsteady and slow, so has been using hiking poles when they go for distance. No further bouts of dizziness. He has some numbness just in his middle toes b/l. No hx of DM. Minimal etoh. No dietary restrictions. No chemo hx. No family hx of neurological disease. His anxiety has been worse of late, so his psychiatrist who rx'd ativan circa mid March, which he has been using perhaps 1x/day for the past 2 weeks. Denies any dream enactment behavior, his mind has been catastrophizing his symptoms in the middle of the night and ativan has helped with this -- his sister has MS, so he wonders aboutthis, or about long covid. He has been maintained on wellbutrin, reduced from 150 to 100mg in case it was contributing to his recent symptoms. He continues to feel quite anxious at times for no clearreason. He also has some chronic orthostatic dizziness when standing too quickly, occurring episodically for years. Denies any tremors. Maybe some slowed gait but no overt shuffling. Denies slowed arm movements or any rigidity. He has some asymmetric hearing loss, denies any positional vertigo. Hisneck feels a bit stiff but denies any overt neck pain. Denies any bowel or bladder dysfunction. He is working with PT for his balance. He takes aspirin and statin daily. ------- Labs 2024 - Normal Lytes, LFTs, CBC, TSH 0.63, tick panel neg. B12 was 478 (lower end of normal). B1 was wnl. LDL 91. C-Spine MRI - 05/01/25 - [facility] report - Multilevel degenerative changes of the cervical spine without high-grade spinal canal stenosis. 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 No abnormal signal within the cervical cord. Brain MRI - 03/08/25 - [facility] report - 1. No acute/subacute infarct, mass, hemorrhage, or other acute intracranial abnormality. 2. Mild T2/FLAIR hyperintense foci in the white matter, nonspecific but most likely reflecting chronic small vessel disease. 3. Tiny chronic infarcts in the right cerebellum. 4. No retrocochlear abnormality to explain hearing loss. CTA Head - 02/25/25 - No significant vertebrobasilar stenosis. 1. No evidence of acute intracranial hemorrhage, midline shift, or mass effect. Please note that CTmay show no acute findings in the setting of early ischemic infarct and lacks sensitivity as compared to MRI. 2. No evidence of large vessel cut off, high-grade stenosis, aneurysm, or dissection on the head and neck CTA. Echo - 02/28/25 - imaged during normal sinus rhythm. The estimated ejection fraction is 50 to 55%. The strain on the study is -14.8% which is mildly decreased. Diastolic function is normal there is noobvious concentric LVH or regional wall motion abnormality. 2. Normal RV size and function. 3. Trileaflet aortic valve there is no evidence of aortic stenosis, the ascending aortic root was poorly visualized. 4. Trace mitral and trace tricuspid insufficiency, the PA pressure is normal on the study. 5. Normal pericardium and no prior echo available for comparison. Carotid US - 02/11/25 - No significant stenosis PMHx: Past Medical History: Diagnosis Date Anxiety Depression Enlarged prostate Exanthem due to chicken pox High cholesterol Hypothyroid Meds: Current Outpatient Medications Medication Sig Dispense Refill Last Dispense ASPIRIN ORAL (Patient taking differently: 81 mg daily.) Unknown (patient-reported) buPROPion (WELLBUTRIN SR) 150 MG SR 12 hr tablet Take 150 mg by mouth 2 (two) times a day. (Patienttaking differently: Take 150 mg by mouth daily.) Unknown (patient-reported) FINASTERIDE ORAL (Patient taking differently: 5 mg daily.) Unknown (patient-reported) LEVOTHYROXINE SODIUM (LEVOTHYROXINE ORAL) (Patient taking differently: 137 mcg daily.) Unknown (patient-reported) LORazepam (ATIVAN) 0.5 MG tablet TAKE 1 TABLET BY MOUTH EVERY DAY NEEDED FOR ANXIETY FOR 30 DAYSUnknown (patient-reported) LOVASTATIN ORAL (Patient taking differently: 20 mg daily.) Unknown (patient-reported) SERTRALINE HCL (SERTRALINE ORAL) (Patient not taking: Reported on 04/24/2025) Unknown (patient-reported) No current facility-administered medications for this visit. Allergies: Allergies Allergen Reactions Erythromycin Other (See Comments) Eye ointment erythromycin FamHx: Parents young from etoh/tobacco. Sister w MS for 40 yrs w slow progression, wheelchair bound for years, now age ~73. 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 The patient does not smoke, abuse ETOH, or use recreational drugs. ROS: Pertinent positive ROS are listed in the HPI. All others are negative. Physical Exam: Vitals: There were no vitals filed for this visit. Gen: AAOx3, calm, NAD Neuro: MS: AAOx3, appropriately conversational with clear fluent speech. CN:no facial droop nor asymmetry, hearing intact to conversation, tongue midline Motor: No tremors. No bradykinesia. No cogwheel rigidity. 5/5 strength b/l delt, bi/tri, wrist flex/extensors, food and beverage order clerk strength. 5/5 b/l hip flexors, quads/hamstrings, calves/gastrocs. Able to arise from a chair w/o difficulty. Sens: Deferred. Previously I noted Intact to LT/temp throughout. Vibration is reduced <4-5 seconds in both great toes. Proprioception intact in b/l index fingers and great toes. Neg Romberg. Reflexes: 2+ b/l bi/BR, 3+ patellars w crossed adductors, 1-2+ achilles. Plantars downgoing b/l. Noankle clonus. Neg hoffmans. Coord: deferred. Previously I noted FTN ntact b/l, no dysmetria. Gait: Nml base, stride, arm swing. Assessment and Plan: Mr. Hung is a 79yo R-handed man with HTN, HLD who returns for evaluation of dizziness which he described as a woozy lightheadedness preceded by a brief painless seconds long episodes of darkened vision in addition to paresthesias in both feet, the right arm, and a general sensation of feeling more unsteady/slow on his feet. These symptoms led to 5 ED visits in January-February2025 without any particular etiology found. Cardiac work-up was unrevealing although he has notablybeen hypertensive in the setting of EGD visit which he attributed to anxiety. He also noted some episodic orthostatic lightheadedness. CTA, Carotid US, and Brain MRI were unrevealing; incidental notewas made of a small chronic right cerebellar stroke which would not explain his presentation. He has been maintained on aspirin and statin. I reassured him that the MRI findings are not consistent with multiple sclerosis (his younger sister has become wheelchair-bound from MS). I did not find any evidence to suggest Parkinson's disease. On neurological exam, he continues to have diminished vibratory sensation in his feet although withseemingly preserved proprioception. Reflexes remain brisk but not necessarily pathological. We checked a C-Spine MRI 04/2025 which showed variable DJD changes without any high-grade spinal canal stenosis nor any abnormal cord signal. He does not have any particular neuropathy risk factors by way of diabetes, alcohol misuse, vitamin deficiencies, or otherwise. His B12 level was in the lower range of normal. His balance is overall stabilized and improved with physical therapy. He also received a low-dose of Ativan that he has used sparingly, and he feels that this has helped to break the cycle of health-related anxiety that he had been experiencing. -Myeloneuropathy panel: B12, MMA, copper/heavy metals, Claudio, RPR, HIV, Sjorgren's, JOHN, CPK. No risk factors, so will defer HIV and RPR. -Continue PT exercises. I asked him to query his physical therapist about possible impaired proprioception. -I do not think EMG testing will be fruitful at this point. I do not think this is any sort of AIDP/GBS/CIDP process. -f/u 6 months documented in this encounter Plan of Treatment Upcoming Encounters Date Type Department Care Team (Late st Contact Info) Description 03/12/2026 10:30 AM EDT Office Visit [facility] [address] [place] [address] [place] [address] Brandon Cordoba MD [address] [facility], [address]nd [place] [address] [email or web address] [email or web address] Results Name Type Priority Associated Diagnoses Date /Time Methylmalonic Acid Quantitative Lab Routine Dizziness and giddiness Paresthesias Hyperreflexia 09/08/2025 2:45 PM EST Copper Lab Routine Dizziness and giddiness Paresthesias Hyperreflexia 09/08/2025 2:45 PM EST Vitamin E Lab Routine Dizziness and giddiness Paresthesias Hyperreflexia 09/08/2025 2:45 PM EST SS-A/SS-B Antibodies Lab Routine Dizziness and giddiness Paresthesias Hyperreflexia 09/08/2025 2:45 PM EST Antinuclear Antibody (JOHN) Lab Routine Dizziness and giddiness Paresthesias Hyperreflexia 09/08/2025 2:45 PM EST Scheduled Orders Name Type Priority Associated Diagnoses Orde r Schedule Methylmalonic Acid Quantitative Lab Routine Dizziness and giddiness Paresthesias Hyperreflexia Expected: 09/08/2025, Expires: 09/08/2026 Copper Lab Routine Dizziness and giddiness Paresthesias Hyperreflexia Expected: 09/08/2025, Expires: 09/08/2026 Vitamin E Lab Routine Dizziness and giddiness Paresthesias Hyperreflexia Expected: 09/08/2025, Expires: 09/08/2026 SS-A/SS-B Antibodies Lab Routine Dizziness and giddiness Paresthesias Hyperreflexia Expected: 09/08/2025, Expires: 09/08/2026 Antinuclear Antibody (JOHN) Lab Routine Dizziness and giddiness Paresthesias Hyperreflexia Expected: 09/08/2025, Expires: 09/08/2026 documented as of this encounter Results * Creatine Kinase (CK) (09/08/2025 2:45 PM EST) [facility] Creatine Kinase (CK) 71 39 - 308 U/L 09/08/2025 6:35 PM EST [facility] Blood (Blood) Venipuncture / Unknown 09/08/2025 2:45 PM EST 09/08/2025 2:45 PM EST us Brandon Cordoba MD LAB BLOOD BKR ORDERABLES Final R esult [facility] [address] [place] [address] * Vitamin B12 (09/08/2025 2:45 PM EST) [facility] Vitamin B12 346 232 - 1,245 pg/mL 09/08/2025 6:48 PM EST [facility] Blood (Blood) Venipuncture / Unknown 09/08/2025 2:45 PM EST 09/08/2025 2:45 PM EST us Brandon Cordoba MD LAB BLOOD BKR ORDERABLES Final R esult [facility] [address] [place] [address] documented in this encounter Visit Diagnoses Diagnosis Hyperreflexia- Primary Abnormal reflex Vitamin B12 deficiency (dietary) anemia Other vitamin B12 deficiency anemia Dizziness and giddiness Paresthesias Disturbance of skin sensation Imbalance Abnormality of gait documented in this encounter Care Teams Crawler Crane Operator Relationship Specialty Start Date End Date Gretchen Schuster MD [address] [place] [address] [email or web address] PCP - General Family Medicine 02/09/25 documented as of this encounter Additional Source Comments The information contained in this document represents components of the legal health record. It is not the complete legal health record.[facility]
--- NOTE | 2025-09-09 15:38 | MHC.OFFVISPS ---
Intake Intake Visit Reasons: depression Allergies erythromycin base Allergy (Mild, Verified 09/16/25 10:34) pruritis HPI- Psychiatric Chief Complaint: depression Intake Note: Patient gives informed consent to video encounter HPI Narrative: The patient verbally consented to this video encounter. This video encounter was conducted via secure, interactive video conferencing. The patient's identity was established before proceeding with the video encounter by confirmation of their name and an additional identifier. Reason for Visit: Concerns about elevated blood pressure and anxiety management. Subjective: The patient reports elevated blood pressure readings recorded during a recent dental appointment, which were confirmed later at their primary care office. Previously, the patient was not on any antihypertensive medication. The patient attributes the rise in blood pressure to anxiety, particularly before and during the dental visit. The patient has been prescribed Wellbutrin (bupropion) for some time and has noted gradually increasing blood pressure. They have not taken lorazepam regularly but took a dose after returning home from the dentist. The patient is considering restarting escitalopram but is unsure how to transition from lorazepam. They report experiencing anxiety, especially at night, leading to racing thoughts and difficulty sleeping. There is no current concern for depression. He does have concern regarding blood pressure And does seem to have bouts of anticipatory anxiety The patient's medication history includes bupropion and occasional lorazepam. They are considering escitalopram but express concerns about past increased anxiety when taking it. No allergies were discussed. Social history includes stress related to dental visits, and there is no mention of alcohol consumption. Family history and other social factors were not detailed. Patient does describe borderline hypertension on appointments with dentist and with primary care Past Psychiatric History: Past history of depression anxiety was a patient Dr. Paez Mental Status Exam Mental Status Exam Narrative: Appearance: Casually dressed Behavior: Cooperative appropriate psychomotor: Within normal limits Speech: Normal volume and prosody Thought proccess logical and goal-directed Thought content: Future oriented focused on tx recent symptoms and concerns regarding anxiety and hypertension Mood: Anxious Affect: Appropriate to mood SI:denies HI:denies VH/AH:none Delusions: None Insight/judgment: Good insight and judgment Memory/cog: Intact Telehealth Telehealth Telehealth Platform: [facility] Location of provider rendering services: practice address Location of patient: address on file Patient Identification confirmed using: Name, : Yes Telehealth method: video (Consent to video scribe) Patient verbally consented to treatment: Yes Minutes spent on Phone/Video with Pt.: 16 Assessment and Plan Assessment & Plan (1) Major depression, recurrent, full remission: Status: Acute Code(s): F33.42 - Major depressive disorder, recurrent, in full remission (2) Anxiety disorder: Status: Acute Code(s): F41.9 - Anxiety disorder, unspecified Plan Assessment: The patient presents with concerns about elevated blood pressure and anxiety, potentially exacerbated by dental visits and current medication regimen. The elevated blood pressure may be related to anxiety or potentially to long-term use of bupropion. The patient's anxiety, particularly at night, is contributing to poor sleep quality and increased stress levels. Plan: 1. Initiate mirtazapine at 15 mg, starting with half a tablet at bedtime to help with anxiety and sleep. Monitor for side effects such as sedation and increased appetite. 2. Continue lorazepam as needed for acute anxiety until mirtazapine takes effect. 3. Discontinue plans to restart escitalopram for now. 4. Schedule a follow-up video appointment in two weeks to assess response to mirtazapine and adjust as needed. 5. Avoid alcohol consumption while on mirtazapine and use caution when driving if feeling sedated. 6. Instruct the patient to contact the office through the portal or call if there are any issues or side effects with the new medication regimen. Actions Video encounter Medications: New mirtazapine 7.5 - 15 mg (0.5 - 1 x 15 mg) PO BEDTIME 30 tabs 1RF 30 days Counseling and coordination of Care Details-Self Mgmt counseling: Education regarding anxiety anticipatory anxiety relaxation breathing Details: I spent [] minutes reviewing the record, seeing the patient and documenting in the medical record. Counseling provided to the patient/caregiver as outlined below. Addressed patient/caregiver concerns regarding current medication regime including effective adherence. Addressed patient/caregiver concerns regarding diagnosis and prognosis including accuracy of diagnosis, prognosis over time, impact of diagnosis. Addressed patient/caregiver concerns regarding impact of recent stressors. [facility] Medical History (Updated 05/11/25 @ 21:52 by Rafa Hobson MD) Major depression, recurrent, full remission Social History: Patient has 2 children. 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 Family history of bipolar disorder and depression patient had social anxieties child Substance History: none Trauma History: Both parents were alcoholics Coding Level of Care Code Tele Est Pt Level 3 (79327) Diagnoses Major depression, recurrent, full remission F33.42 Anxiety disorder F41.9
--- OUTSIDE RECORDS SUMMARY | 2025-09-09 16:58 | XMS_ITS | Clinical Summary ---
Author Organization [facility] Address [address] [place] [address] Phone Care Team Providers Care Resident Services Manager Name Role Phone Gretchen Schuster MD Primary Care Provider [phone]- [phone] Allergies Active Allergy Reactions Criticality Noted Date [...] NEEDED FOR ANXIETY FOR 30 DAYS Active terbinafine HCL (LAMISIL) 250 mg tablet Take 1 tablet by mouth every morning. 09/08/20 25 Discontinu ed(No longer taking) Encounters Date Type Department Care Team Description 09/08/2025 2:00 PM EST Office Visit [facility] [address] [place] [address] Brandon Cordoba MD Hyperreflexia (Primary Dx); Vitamin B12 deficiency (dietary) anemia; Dizziness and giddiness; Paresthesias; Imbalance from Last 3 Months Social History Tobacco [...] Description 03/12/2026 10:30 AM EDT Office Visit [facility] [address] [place] [address] Brandon Cordoba MD [address] [place] [address], [address] [place] [address] [email or web address] Health Maintenance Due Date Last Done Comments [...] Procedure Name Priority Date/Time Associated Diagnosis Comments VITAMIN B12 Routine 09/08/2025 2:45 PM EST Vitamin B12 deficiency (dietary) anemia Dizziness and giddiness Paresthesias Hyperreflexia CREATINE KINASE (CK) Routine 09/08/2025 2:45 PM EST Dizziness and giddiness Paresthesias Hyperreflexia TSH WITH REFLEX STAT 02/26/2025 3:01 PM EDT HM COLONOSCOPY FOR RESULT ENTRY ONLY Routine 03/16/2016 from Last 3 Months or Most Recently Relevant to Health Maintenance Results * Vitamin B12 (09/08/2025 2:45 PM EST) Vitamin B12 346 232 - 1,245 pg/mL 09/08/2025 6:48 PM EST [facility] Blood (Blood) Venipuncture / Unknown 09/08/2025 2:45 PM EST 09/08/2025 2:45 PM EST us Brandon Cordoba MD LAB BLOOD BKR ORDERABLES Final R esult [facility] [address] [place] [address] * Creatine Kinase (CK) (09/08/2025 2:45 PM EST) Creatine Kinase (CK) 71 39 - 308 U/L 09/08/2025 6:35 PM EST [facility] Blood (Blood) Venipuncture / Unknown 09/08/2025 2:45 PM EST 09/08/2025 2:45 PM EST us Brandon Cordoba MD LAB BLOOD BKR ORDERABLES Final R esult Performing Organization Address City/[facility]/ZIP Co de Phone Number [address] [address] * TSH with reflex (02/26/2025 3:01 PM EDT) TSH 0.63 0.27 - 4.20 uIU/mL [facility] Blood 02/26/2025 3:01 PM EDT 02/26/2025 3:05 PM EDT us Tomasa Moore PA-C LAB BLOOD BKR ORDERABLES Fi nal Result Performing Organization Address [facility]/ZIP Co de Phone Number [address] [address] * COLONOSCOPY FOR RESULT ENTRY ONLY (03/16/2016) HM Colonoscopy External us Historical Provider HEALTH MAINTENANCE Final Result from Last 3 Months or Most Recently Relevant to Health Maintenance Insurance MEDICARE PART A & B [facility] MEDICARE ENHANCE SUPPLEMENT MEDICARE PART A & B [facility] MEDICARE ENHANCE SUPPLEMENT MEDICARE PART A & B MEDICARE PART A & B MEDICARE PART A & B [facility] MED[facility] ENHANCE SUPPLEMENT MEDICARE PART A & B MEDICARE PART A & B MEDICARE ENHANCE SUPPLEMENT MEDICARE PART A & B [facility] MEDICARE ENHANCE SUPPLEMENT MEDICARE PART A & B [facility] MEDICARE ENHANCE SUPPLEMENT Care Teams Resident Services Manager Relationship Specialty Start Date End Date Gretchen Schuster MD [address] [place] [phone] [email or web address] PCP - General Family Medicine 02/09/25 Additional Source Comments The information contained in this document represents components of the legal health record. It is not the complete legal health record.[facility]
--- OUTSIDE RECORDS SUMMARY | 2025-09-09 16:58 | XMS_ITS | Encounter Summary ---
Author Organization [facility] Address [address] [place] [address] Phone Care Team Providers Care Revenue Collector Name Role Phone Marco Dooley MD Primary Care Provider [phone] Gretchen Schuster MD Primary Care Provider [phone] Encounter Details Date Type Department Care Team (Latest Contact Info) Description 12/14/2020 Transcribe Orders Virtual Department [address] [place] [address] Salima Mc[address]or [address], [address] [address] [email or web address] Scrotal varices (Primary Dx) Social History [...] Description 03/12/2026 10:30 AM EDT Office Visit [facility] [address] [place] [address] Brandon Cordoba MD [address] [place] [address] [email or web address] documented as of this encounter Results * [...] collections. Additional findings: Mild prostatomegaly. Procedure Note Fleiz West MD - 12/16/2020 COMPARISON: None. RENAL ULTRASOUND FINDINGS: Right Kidney: measures 12 x 5 cm. No hydronephrosis, masses or calculi.Cortical echogenicity and thickness are normal. No perinephric fluidcollections. Left Kidney: measures 11 x 6 cm. No hydronephrosis, masses or calculi.Cortical echogenicity and thickness are normal. No perinephric fluidcollections. Additional findings: Mild prostatomegaly. IMPRESSION: 1.Normal renal ultrasound. 2.Mild prostatomegaly. Salima Mcgregor CNP IM US RENAL Final Resu lt documented in this encounter Visit Diagnoses Diagnosis Scrotal varices- Primary Scrotal varices documented in this encounter Care Teams Revenue Collector Relationship Specialty Start Date End Date Marco Dooley MD [address] [place] [address] [address] [place] [phone] [email or web address] PCP - General 07/16/17 02/08/25 Gretchen Schuster MD [address] [place] [phone] [email or web address] PCP - General Family Medicine 02/09/25 documented as of this encounter Additional Source Comments The information contained in this document represents components of the legal health record. It is not the complete legal health record.[facility]
--- OUTSIDE RECORDS SUMMARY | 2025-09-09 16:58 | XMS_ITS | Encounter Summary ---
Author Organization [facility] Address [address] [place] [address] Phone Care Team Providers Care House Coordinator Name Role Phone Gretchen Schuster MD Primary Care Provider [phone] Encounter Details Date Type Department Care Team (Latest Contact Info) Description 02/21/2025 Transcribe Orders Virtual Department [address] [place] [address] Amy Eldridge MD [address] [place] [address] [email or web address] Dizziness and giddiness (Primary Dx); Vision [...] Description 03/12/2026 10:30 AM EDT Office Visit [facility] [address] [place] [address] Brandon Cordoba MD [address] [facility], 2nd [place] [address] [email or web address] documented as of this encounter Visit Diagnoses Diagnosis Dizziness and giddiness- Primary Vision loss Unspecified visual loss Asymmetrical hearing loss Unspecified hearing loss documented in this encounter Care Teams House Coordinator Relationship Specialty Start Date End Date Gretchen Schuster MD [address] [place] [phone] [email or web address] PCP - General Family Medicine 02/09/25 documented as of this encounter Additional Source Comments The information contained in this document represents components of the legal health record. It is not the complete legal health record.[facility]
--- OUTSIDE RECORDS SUMMARY | 2025-09-09 16:59 | XMS_ITS | Encounter Summary ---
Author Organization [facility] Address [address] [place] [address] Phone Care Team Providers Care Environmental Health Safety Manager Name Role Phone Gretchen Schuster MD Primary Care Provider [phone] Encounter Details Date Type Department Care Team (Late st Contact Info) Description 02/28/2025 Procedure Pass [facility] [address] [place] [address] Social History Tobacco Use Types Packs/Day Years [...] Description 03/12/2026 10:30 AM EDT Office Visit [facility] Neurology [address] [address] Brandon Cordoba MD [address] [place] [address], [address] [place] [address] documented as of this encounter Visit Diagnoses Not on filedocumented in this encounter Care Teams Environmental Health Safety Manager Relationship Specialty Start Date End Date Gretchen Schuster MD [address] [place] [address] PCP - General Family Medicine 5/25/25 documented as of this encounter Additional Source Comments The information contained in this document represents components of the legal health record. It is not the complete legal health record.[facility]
--- OUTSIDE RECORDS SUMMARY | 2025-09-09 16:59 | XMS_ITS | Encounter Summary ---
Author Organization [facility] Address [address] [place] [address] Phone Care Team Providers Care Conduit Helper Name Role Phone Marco Dooley MD Primary Care Provider [phone] Gretchen Schuster MD Primary Care Provider [phone] Encounter Details Date Type Department Care Team (Latest Contact Info) Description 03/08/2018 Transcribe Orders [facility] [address]nd [place] [address] Bre Marcano PA [address] [phone] [email or web address] Enlarged prostate with urinary obstruction (Primary [...] Description 03/12/2026 10:30 AM EDT Office Visit [facility] [address] [place] [address] Brandon Cordoba MD [address] [place] [address] [email or web address] documented as of this encounter Results * PSA (screening) (03/08/2018 10:02 AM EDT) PSA 1.32 0 - 4.00 ng/mL [facility] Blood 03/08/2018 10:0 2 AM EDT 03/08/2018 10:05 AM EDT us Bre NAGEL LAB BLOOD BKR ORDERABLES F inal Result 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 It is not the complete legal health record.[facility]
--- OUTSIDE RECORDS SUMMARY | 2025-09-09 16:59 | XMS_ITS | Encounter Summary ---
Author Organization [facility] Address [address] [place] [address] Phone Care Team Providers Care Galley Stripper Name Role Phone Gretchen Schuster MD Primary Care Provider [phone] Encounter Details Date Type Department Care Team (Late st Contact Info) Description 02/25/2025 Procedure Pass [facility], Ct Scan - [address] [address] Social History Tobacco Use Types Packs/Day Years [...] Description 03/12/2026 10:30 AM EDT Office Visit [facility] [address] [place] [address] Brandon Cordoba MD [address] [place] [address], [address] [place] [address] documented as of this encounter Visit Diagnoses Not on filedocumented in this encounter Care Teams Galley Stripper Relationship Specialty Start Date End Date Gretchen Schuster MD [address] [place] [address] PCP - General Family Medicine 02/09/25 documented as of this encounter Additional Source Comments The information contained in this document represents components of the legal health record. It is not the complete legal health record.[facility]
--- OUTSIDE RECORDS SUMMARY | 2025-09-09 16:59 | XMS_ITS | Encounter Summary ---
Author Organization [facility] Address [address] [place] [address] Phone Care Team Providers Care Associate Professor Of Counseling Name Role Phone Gretcehn Schuster MD Primary Care Provider [phone] Reason for Referral * Outpatient Procedure - Closed Specialty Diagnoses / Procedures Referred By Mary Jane leavitt Referred To Contact Diagnoses Transient cerebral ischemia, unspecified type Procedures Adult Echo TTE Gretchen Schuster MD [address] [place] [address] Phone: tel: fax: [email or web address] Referral ID Status Reason Start Date Expiration Date Visits Re quested Visits Authorized [id number] Closed 02/28/2025 02/28/2026 1 1 Encounter Details Date Type Department Care Team (Late st Contact Info) Description 02/28/2025 Transcribe Orders Virtual Department [address] [place] [address] Brenda Valle [place] [email or web address] Transient cerebral ischemia, unspecified type (Primary Dx) [...] Description 03/12/2026 10:30 AM EDT Office Visit [facility] [address] [place] [address] Brandon Cordoba MD [address] [facility] [address] [place] [address] [email or web address] documented as of this encounter Results * [...] type documented in this encounter Care Teams Associate Professor Of Counseling Relationship Specialty Start Date End Date Gretchen Schuster MD [address] [place] [phone] [email or web address] PCP - General Family Medicine 02/09/25 documented as of this encounter Additional Source Comments The information contained in this document represents components of the legal health record. It is not the complete legal health record.[facility]
--- OUTSIDE RECORDS SUMMARY | 2025-09-09 16:59 | XMS_ITS | Encounter Summary ---
Author Organization [facility] Address [address] [place] [address] Phone Care Team Providers Care Laborer [employer] Name Role Phone Marco Dooley MD Primary Care Provider [phone] Gretchen Schuster MD Primary Care Provider [phone] Encounter Details Date Type Department Care Team (Latest Contact Info) Description 01/04/2021 Transcribe Orders Virtual Department [address] [place] [address] Marco Dooley MD [address] [facility] [address] [place] [phone] [email or web address] Scrotal varices (Primary Dx) Social History Tobacco [...] Description 03/12/2026 10:30 AM EDT Office Visit [facility] [address] [place] [address] Brandon Cordoba MD 22 [facility], 2nd [place] [address] [email or web address] documented as of this encounter Visit Diagnoses Diagnosis Scrotal varices- Primary documented in this encounter Care Teams Laborer [employer] Relationship Specialty Start Date End Date Marco Dooley MD [address] [facility] [address] [place] [phone] [email or web address] PCP - General 07/16/17 02/08/25 Gretchen Schuster MD [address] [place] [phone] [email or web address] PCP - General Family Medicine 02/09/25 documented as of this encounter Additional Source Comments The information contained in this document represents components of the legal health record. It is not the complete legal health record.[facility]
== END 2025-09-09 16:19 | disposition home or self-care (01) ==
LOC: HO.HOP 16:19
PROVIDERS: PCP Family Medicine; Visit Provider Psychiatry & Neurology Psychiatry
DX: F33.42 Major depressive disorder, recurrent, in full remission (principal); F41.9 Anxiety disorder, unspecified
CPT/HCPCS: 99213

== ENCOUNTER 2025-09-16 10:47 | Outpatient (AMB) | payer MEDICARE, OTHER, SELFPAY ==
--- NOTE | 2025-09-16 10:34 | MHC.OFFVISPS ---
Intake Intake Visit Reasons: depression Allergies erythromycin base Allergy (Mild, Verified 09/16/25 10:34) pruritis HPI- Psychiatric Chief Complaint: depression Intake Note: Pt seen for inc anxiety and ? adverse reaction to mirtazapine HPI Narrative: e patient verbally consented to this video encounter. This video encounter was conducted via secure, interactive video conferencing. The patient's identity was established before proceeding with the video encounter by confirmation of their name and an additional identifier. Reason for Visit: Blood pressure concerns and medication management. Subjective: The patient presents with concerns about blood pressure following a recent spike noted during a dental visit. They are currently being treated with mirtazapine for anxiety and have previously been on terbinafine for a rash. The patient experienced dizziness and near syncope after climbing stairs, and reports ongoing issues with balance, which they are addressing through physical therapy. They noted that their dizziness could be linked to dehydration, and they have been experiencing constipation. The patient is aware of orthostatic dizziness, particularly when standing up quickly, which has been a chronic issue. Anxiety has improved with mirtazapine, though they experienced morning grogginess. They also take Wellbutrin, which may contribute to increased blood pressure. The patient has a history of an allergic reaction to erythromycin eye ointment (itchiness and swelling). The patient takes lorazepam occasionally, and was on a half tablet of mirtazapine until recently. They consume coffee, limiting intake to two cups per day, and are advised to stay hydrated to manage dizziness. There is no mention of significant family history relevant to current concerns or other social history details provided. Past Psychiatric History: Past history of depression anxiety was a patient Dr. Paez Mental Status Exam Mental Status Exam Narrative: Patient alert and cooperative gives sent to video scribe appointment. Speech clear goal-directed mood some anxiety noted affect constricted content focused on symptoms able to take in information future oriented risks benefits alternatives reviewed recommendations reviewed Telehealth Telehealth Telehealth Platform: [employer] (Consent for video scribe given) Location of provider rendering services: practice address Location of patient: address on file Patient Identification confirmed using: Name, : Yes Telehealth method: video (Consent to video scribe) Patient verbally consented to treatment: Yes Minutes spent on Phone/Video with Pt.: 16 Assessment and Plan Assessment & Plan (1) Anxiety disorder: Status: Acute Code(s): F41.9 - Anxiety disorder, unspecified Plan Assessment: The patient presents with a history of anxiety, currently managed with mirtazapine, and recent episodes of elevated blood pressure. The dizziness experienced upon exertion (climbing stairs) could be attributed to dehydration or orthostatic hypotension, possibly exacerbated by mirtazapine use. They have experienced improvement in anxiety and sleep with mirtazapine, although with some morning grogginess. The increased blood pressure may be linked to Wellbutrin, anxiety, or measurement inaccuracies. Plan: 1. Resume half tablet of mirtazapine at bedtime to manage anxiety and improve sleep. 2. Maintain adequate hydration and monitor for dizziness upon standing. 3. Limit coffee intake to manage anxiety and potential blood pressure effects. 4. Continue with scheduled blood pressure check at the clinic. 5. Encourage relaxation breathing exercises twice daily for 10 minutes to manage anxiety. 6. Follow-up appointment scheduled for September 25; patient advised to contact me if symptoms worsen or new concerns arise. 7. Consider potential adjustment of medications if blood pressure issues persist after monitoring and lifestyle adjustments. Actions Video encounter Counseling and coordination of Care Details: I spent [] minutes reviewing the record, seeing the patient and documenting in the medical record. Counseling provided to the patient/caregiver as outlined below. Addressed patient/caregiver concerns regarding current medication regime including effective adherence. Addressed patient/caregiver concerns regarding diagnosis and prognosis including accuracy of diagnosis, prognosis over time, impact of diagnosis. Addressed patient/caregiver concerns regarding impact of recent stressors. [facility] Medical History (Updated 05/11/25 @ 21:52 by Rafa Hobson MD) Major depression, recurrent, full remission Social History: Patient has 2 children. 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 Family history of bipolar disorder and depression patient had social anxieties child Substance History: none Trauma History: Both parents were alcoholics Coding Level of Care Code Tele Est Pt Level 3 (65169) Diagnoses Anxiety disorder F41.9
--- OUTSIDE RECORDS SUMMARY | 2025-09-16 14:32 | XMS_ITS | Clinical Summary ---
Author Organization [facility] Address [address] [place] [address] Phone Care Team Providers Care Cable Respooler Name Role Phone Gretchen Schuster MD Primary Care Provider [phone]- [phone] Allergies Active Allergy Reactions Criticality Noted Date [...] Description 09/08/2025 2:00 PM EST Office Visit [facility] [address] [place] [address] Brandon Cordoba MD Hyperreflexia (Primary Dx); Vitamin [...] Description 03/12/2026 10:30 AM EDT Office Visit [facility] [address] [place] [address] Brandon Cordoba MD [address] [place] [address], [address] [place] [address] [email or web address] Health Maintenance Due Date Last Done Comments [...] (dietary) anemia Dizziness and giddiness Paresthesias Hyperreflexia METHYLMALONIC ACID QUANTITATIVE Routine 09/08/2025 2:45 PM EST Dizziness and giddiness Paresthesias Hyperreflexia COPPER Routine 09/08/2025 2:45 PM EST Dizziness and giddiness Paresthesias Hyperreflexia VITAMIN E Routine 09/08/2025 2:45 PM EST Dizziness and giddiness Paresthesias Hyperreflexia SS-A/SS-B ANTIBODIES Routine 09/08/2025 2:45 PM EST Dizziness and giddiness Paresthesias Hyperreflexia ANTINUCLEAR ANTIBODY (JOHN) Routine 09/08/2025 2:45 PM EST Dizziness and giddiness Paresthesias Hyperreflexia CREATINE KINASE (CK) Routine 09/08/2025 2:45 PM EST Dizziness and giddiness Paresthesias Hyperreflexia TSH WITH REFLEX STAT 02/26/2025 3:01 PM EDT HM COLONOSCOPY FOR RESULT ENTRY ONLY Routine 03/16/2016 from Last 3 Months or Most Recently Relevant to Health Maintenance Results * Vitamin E (09/08/2025 2:45 PM EST) A-Tocopherol, Vitamin E 11.1 5.5 - 17.0 mg/L 09/14/2025 3:10 PM EST [facility] Comment: ADDITIONAL INFORMATION This test was developed and its performance characteristics determined by [facility] in a manner consistent with CLIA requirements. This test has not been cleared or approved by the U.S. Food and Drug Administration. Blood (Blood) Venipuncture / Unknown 09/08/2025 2:45 PM EST 09/08/2025 2:45 PM EST us Brandon Cordoba MD LAB BLOOD BKR ORDERABLES Final R esult HAYDEN SHELDON) [facility] [address] [phone] * Methylmalonic Acid Quantitative (09/08/2025 2:45 PM EST) [facility] Methylmalonic Acid 223 69 - 390 nmol/L 09/14/2025 10:34 AM EST [facility] (STEW) Comment: . Serum methylmalonic acid (MMA) levels are used to diagnose and monitor several rare inborn errors of metabolism, including methylmalonic aciduria. The enzymatic conversion of MMA to succinic acid requires vitamin B12 (adenosyl-cobalamin) as a cofactor. Serum MMA levels are also used for assessing functional vitamin B12 deficiency. Vitamin B12 is essential for neurodevelopment, particularly early in . Undiagnosed maternal vitamin B12 deficiency may be associated with adverse / outcomes, such as neural tube defects and intrauterine growth restriction. . [facility] utilized Multi-Modal Decomposition (MMD) analysis to establish first and second trimester- specific MMA reference intervals in , as given below: MMA, First trimester (<13 wks gestation): 58-167 nmol/L MMA, Second trimester (13-23 wks gestation): 63-241 nmol/L . This test was developed and its analytical performance characteristics have been determined by [facility]. It has not been cleared or approved by the FDA. This assay has been validated pursuant to the CLIA regulations and is used for clinical purposes. . Blood (Blood) Venipuncture / Unknown 09/08/2025 2:45 PM EST 09/08/2025 2:45 PM EST Narrative [facility] (BEAKER) - 09/14/2025 10:34 AM EST [facility] Received Date and Time: [id number] Brandon Cordoba MD LAB BLOOD BKR ORDERABLES Final R esult Performing Organization Address [facility] Co de Phone Number MAITE [employer]ARABELLA) [address] [address] marinanow) [address] [place] [address] [facility] * Copper (09/08/2025 2:45 PM EST) [facility] Copper, S 89 73 - 129 mcg/dL 09/12/2025 7:19 PM EST [facility] Comment: ADDITIONAL INFORMATION This test was developed and its performance characteristics determined by [facility] in a manner consistent with CLIA requirements. This test has not been cleared or approved by the U.S. Food and Drug Administration. Blood (Blood) Venipuncture / Unknown 09/08/2025 2:45 PM EST 09/08/2025 2:45 PM EST Brandon Cordoba MD LAB BLOOD BKR ORDERABLES Final R esult Performing Organization Address [facility] Co de Phone Number HAYDEN SHELDON) [facility] [address] [place], [place] [address] [phone] * SS-A/SS-B Antibodies (09/08/2025 2:45 PM EST) Anti-Ro Antibodies 2.9 <19.9 U 09/10/2025 10:39 AM EST [facility] Anti-La Antibody 1.9 <19.9 U 09/10/2025 10:39 AM EST [facility] SSA Negative 09/10/2025 10:39 AM EST [facility] SSB Negative 09/10/2025 10:39 AM EST [facility] Blood (Blood) Venipuncture / Unknown 09/08/2025 2:45 PM EST 09/08/2025 2:45 PM EST Brandon Cordoba MD LAB BLOOD BKR ORDERABLES Final R esult Performing Organization Address [facility] Co de Phone Number [address] [address] * Antinuclear Antibody (JOHN) (09/08/2025 2:45 PM EST) Antinuclear Antibody (JOHN) Negative Negative 2:25 PM EST [facility] JOHN Interpretation The indirect immunofluorescence test on Hep2 cell substrate shows that the serum of this patient does not produce appreciable fluorescent signal at a screening titer of 1:80. 2:25 PM EST [facility] Comment: . Blood (Blood) Venipuncture / Unknown 09/08/2025 2:45 PM EST 09/08/2025 2:45 PM EST Brandon Cordoba MD LAB BLOOD BKR ORDERABLES Final R esult [address] [address] * Vitamin B12 (09/08/2025 2:45 PM EST) Vitamin B12 346 232 - 1,245 pg/mL 09/08/2025 6:48 PM EST [facility] Blood (Blood) Venipuncture / Unknown 09/08/2025 2:45 PM EST 09/08/2025 2:45 PM EST us Brandon Cordoba MD LAB BLOOD BKR ORDERABLES Final R esult Performing Organization Address [facility]/ZIP Co de Phone Number [address] [address] * Creatine Kinase (CK) (09/08/2025 2:45 PM EST) Creatine Kinase (CK) 71 39 - 308 U/L 09/08/2025 6:35 PM EST [facility] Blood (Blood) Venipuncture / Unknown 09/08/2025 2:45 PM EST 09/08/2025 2:45 PM EST Brandon Cordoba MD LAB BLOOD BKR ORDERABLES Final R esult Performing Organization Address [facility] Co de Phone Number [address] [address] * TSH with reflex (02/26/2025 3:01 PM EDT) TSH 0.63 0.27 - 4.20 uIU/mL [facility] Blood 02/26/2025 3:01 PM EDT 02/26/2025 3:05 PM EDT us Tomasa [place] PA-C LAB BLOOD BKR ORDERABLES Fi nal Result Performing Organization Address City/[facility]/ZIP Co de Phone Number [address] [address] * HM COLONOSCOPY FOR RESULT ENTRY ONLY (03/16/2016) HM Colonoscopy External us Sammi Cam MD HEALTH MAINTENANCE Final Result from Last 3 Months or Most Recently Relevant to Health Maintenance Insurance MEDICARE PART A & [place] [place] [address] MEDICARE ENHANCE SUPPLEMENT MEDICARE PART A & B [facility] MEDICARE ENHANCE SUPPLEMENT MEDICARE PART A & B MEDICARE PART A & B MEDICARE PART A & B Member Subscriber Plan / Payer ( fective 2010-Present) Name:Jayy Hung Member ID:[id number] Relation to Subscriber:Self Name:Jayy Hung Subscriber ID:[id number] Payer ID:[id number] Group ID:Not on file Type:Medicare Address: [email or web address] [address] MEDICARE ENHANCE SUPPLEMENT MEDICARE PART A & B MEDICARE PART A & B [facility] MEDICARE ENHANCE SUPPLEMENT [facility] [place] Address: [address] [place] [address] MEDICARE PART A & B [facility] MEDICARE ENHANCE SUPPLEMENT MEDICARE PART A & B [facility] MEDICARE ENHANCE SUPPLEMENT Care Teams Cable Respooler Relationship Specialty Start Date End Date Gretchen Schuster MD [address] [place] [phone] [email or web address] PCP - General Family Medicine 02/09/25 Additional Source Comments The information contained in this document represents components of the legal health record. It is not the complete legal health record.[facility]
--- OUTSIDE RECORDS SUMMARY | 2025-09-16 14:32 | XMS_ITS | Encounter Summary ---
Author Organization [facility] Address [address] [place] [address] Phone Care Team Providers Care Ironworker Name Role Phone Marco Dooley MD Primary Care Provider [phone] Gretchen Schuster MD Primary Care Provider [phone]- [phone] Encounter Details Date Type Department Care Team (Latest Contact Info) Description 01/04/2021 Transcribe Orders Virtual Department [address] [place] [address] Marco Dooley MD [address] [facility] [address] [place] [phone] [email or web address] Scrotal varices (Primary Dx) Social History Tobacco [...] Description 03/12/2026 10:30 AM EDT Office Visit [facility] Neurology Clinic [address] [place] [address] Brandon Cordoba MD [address] [facility], 2nd [place] [address] [email or web address] documented as of this encounter Visit Diagnoses Diagnosis Scrotal varices- Primary documented in this encounter Care Teams Ironworker Relationship Specialty Start Date End Date Marco Dooley MD [address] [facility] [address] [place] [address] [email or web address] PCP - General 07/16/17 02/08/25 Gretchen Schuster MD [address] [place] [address] [email or web address] PCP - General Family Medicine 02/09/25 documented as of this encounter Additional Source Comments The information contained in this document represents components of the legal health record. It is not the complete legal health record.[facility]
--- OUTSIDE RECORDS SUMMARY | 2025-09-16 14:32 | XMS_ITS | Encounter Summary ---
Author Organization [facility] Address [address] [place] [address] Phone Care Team Providers Care Fitness Assistant Name Role Phone Marco Dooley MD Primary Care Provider [phone] Gretchen Schuster MD Primary Care Provider [phone] Encounter Details Date Type Department Care Team (Latest Contact Info) Description 03/08/2018 Transcribe Orders [facility] [address]nd [place] [address] Bre Marcano PA [address] [phone] [email or web address] Enlarged prostate with urinary obstruction (Primary Dx) [...] Description 03/12/2026 10:30 AM EDT Office Visit [facility] Neurology Clinic [address] [place] [address] Brandon Cordoba MD [address] [place] [address] 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 PCP - General Family Medicine 02/09/25 documented as of this encounter Additional Source Comments The information contained in this document represents components of the legal health record. It is not the complete legal health record.[facility]
--- OUTSIDE RECORDS SUMMARY | 2025-09-16 14:32 | XMS_ITS | Encounter Summary ---
Author Organization [facility] Address [address] [place] [address] Phone Care Team Providers Care Physician'S Aide Name Role Phone Gretchen Schuster MD Primary Care Provider [phone] Reason for Referral * Outpatient Procedure - Closed Specialty Diagnoses / Procedures Referred By Mary Jane leavitt Referred To Contact Diagnoses Transient cerebral ischemia, unspecified type Procedures Adult Echo TTE Gretchen Schuster MD [address] [place] [address] Phone: tel: fax: [email or web address] Referral ID Status Reason Start Date Expiration Date Visits Re quested Visits Authorized [id number] Closed 02/28/2025 02/28/2026 1 1 Encounter Details Date Type Department Care Team (Late st Contact Info) Description 02/28/2025 Transcribe Orders Virtual Department 30 [place] [address] Brenda Valle [place] [email or web address] Transient cerebral ischemia, unspecified type (Primary Dx) [...] Description 03/12/2026 10:30 AM EDT Office Visit [facility] [address] [place] [address] Brandon Cordoba MD [facility] [address] [place] [address] [email or web address] documented as of [...] type documented in this encounter Care Teams Physician'S Aide Relationship Specialty Start Date End Date Gretchen Schuster MD [address] [place] [phone] [email or web address] PCP - General Family Medicine 02/09/25 documented as of this encounter Additional Source Comments The information contained in this document represents components of the legal health record. It is not the complete legal health record.[facility]
--- OUTSIDE RECORDS SUMMARY | 2025-09-16 14:32 | XMS_ITS | Encounter Summary ---
Author Organization [facility] Address [address] [place] [address] Phone Care Team Providers Care Consolidation Accountant Name Role Phone Gretchen Schuster MD Primary Care Provider [phone]- [phone] Encounter Details Date Type Department Care Team (Late st Contact Info) Description 02/28/2025 Procedure Pass [facility] [address] [place] [address] Social History Tobacco Use Types Packs/Day Years [...] Description 03/12/2026 10:30 AM EDT Office Visit [facility] Neurology [address] [address] Brandon Cordoba MD [address] [place] [address], 2[address] [place] [address] documented as of this encounter Visit Diagnoses Not on filedocumented in this encounter Care Teams Consolidation Accountant Relationship Specialty Start Date End Date Gretchen Schuster MD [address] [place] [address] PCP - General Family Medicine 5/25/25 documented as of this encounter Additional Source Comments The information contained in this document represents components of the legal health record. It is not the complete legal health record.[facility]
--- OUTSIDE RECORDS SUMMARY | 2025-09-16 14:32 | XMS_ITS | Encounter Summary ---
Author Organization [facility] Address [address] [place] [address] Phone Care Team Providers Care Stiff Leg Derrick Operator Name Role Phone Marco Dooley MD Primary Care Provider [phone] Gertchen Schuster MD Primary Care Provider [phone] Encounter Details Date Type Department Care Team (Latest Contact Info) Description 12/14/2020 Transcribe Orders Virtual Department 30 [place] [address] Salima Mcgregor [address], [address] [address] [email or web address] Scrotal varices (Primary Dx) Social [...] Description 03/12/2026 10:30 AM EDT Office Visit [facility]rology Clinic [address] [place] [address] Brandon Cordoba MD [address] 2nd [place] [address] [email or web address] documented as of this encounter [...] varices documented in this encounter Care Teams Stiff Leg Derrick Operator Relationship Specialty Start Date End Date Marco Dooley MD [address] [place] [address] [address] [place] [phone] [email or web address] PCP - General 07/16/17 02/08/25 Gretchen Schuster MD [address] [place] [phone] [email or web address] PCP - General Family Medicine 02/09/25 documented as of this encounter Additional Source Comments The information contained in this document represents components of the legal health record. It is not the complete legal health record.[facility]
--- OUTSIDE RECORDS SUMMARY | 2025-09-16 14:32 | XMS_ITS | Encounter Summary ---
Author Organization [facility] Address [address] [place] [address] Phone Care Team Providers Care Digital X Ray Service Engineer Name Role Phone Gretchen Schuster MD Primary Care Provider [phone] Encounter Details Date Type Department Care Team (Late st Contact Info) Description 02/25/2025 Procedure Pass [facility], Ct Scan - [address] [address] Social History Tobacco Use Types Packs/Day Years [...] Description 03/12/2026 10:30 AM EDT Office Visit [facility] Neurology Clinic [address] [place] [phone] Brandon Cordoba MD [address] [place] [address], [address] [place] [address] documented as of this encounter Visit Diagnoses Not on filedocumented in this encounter Care Teams Digital X Ray Service Engineer Relationship Specialty Start Date End Date Gretchen Schuster MD 70 [place] [address] PCP - General Family Medicine 02/09/25 documented as of this encounter Additional Source Comments The information contained in this document represents components of the legal health record. It is not the complete legal health record.[facility]
--- OUTSIDE RECORDS SUMMARY | 2025-09-16 14:32 | XMS_ITS | Encounter Summary ---
Author Organization [facility] Address [address] [place] [address] Phone Care Team Providers Care Cloud Software Engineer Name Role Phone Gretchen Schuster MD Primary Care Provider [phone] Encounter Details Date Type Department Care Team (Latest Contact Info) Description 02/21/2025 Transcribe Orders Virtual Department [address] [place] [address] Amy lEdridge MD 70 [place] [address] [email or web address] Dizziness and giddiness (Primary Dx); Vision [...] Description 03/12/2026 10:30 AM EDT Office Visit [facility] Neurology Clinic [address] [place] [address] Brandon Cordoba MD 22 [facility], 2nd [place] [address] [email or web address] documented as of this encounter Visit Diagnoses Diagnosis Dizziness and giddiness- Primary Vision loss Unspecified visual loss Asymmetrical hearing loss Unspecified hearing loss documented in this encounter Care Teams Cloud Software Engineer Relationship Specialty Start Date End Date Gretchen Schuster MD [address] [place] [phone] [email or web address] PCP - General Family Medicine 02/09/25 documented as of this encounter Additional Source Comments The information contained in this document represents components of the legal health record. It is not the complete legal health record.[facility]
== END 2025-09-16 10:52 | disposition home or self-care (01) ==
LOC: HO.HOP 10:47
PROVIDERS: PCP Family Medicine; Visit Provider Psychiatry & Neurology Psychiatry
DX: F41.9 Anxiety disorder, unspecified (principal)
CPT/HCPCS: 99213